=== PATIENT | male | born 1980 | race Caucasian/White ===

== ENCOUNTER → 2019-12-16 15:03 | Outpatient (CLI) | payer BC, SELFPAY ==
--- NOTE | 2019-12-16 15:09 | XR_ITS ---
PROCEDURE: XR THORACIC SPINE 2V CLINICAL INDICATION: Mid-Back Pain COMPARISON: No exams were available for comparison FINDINGS: There is normal alignment. No fracture or dislocation. No lytic or blastic change. IMPRESSION: No acute findings. Dictated by: Olegario Caputo MD 12/16/2019 16:01 Electronically signed by Olegario Caputo MD in [place] 12/16/2019 16:01
== END ==
PROVIDERS: PCP Emergency Medicine; Visit Provider Nurse Practitioner Family
DX: M54.6 Pain in thoracic spine (principal)
CPT/HCPCS: 72070

== ENCOUNTER → 2020-06-13 08:29 | Outpatient (CLI) | payer BC, SELFPAY ==
--- NOTE | 2020-06-13 08:29 | MR_ITS ---
PROCEDURE: MR LUMBAR SPINE WO CON CLINICAL INDICATION: back pain Pt c/o lbp with no known trauma or injury. COMPARISON: No exams were available for comparison TECHNIQUE: Standard multiplanar multiecho sequences are performed without contrast. 3-D MIP and myelographic images are also rendered and reviewed FINDINGS: There is normal alignment. The spinal cord ends at the L1 level. There is a hemangioma at T12 incidentally noted at 1.8 cm. T12-L1: Mild degenerative disc desiccation L1-L2: Mild degenerative disc desiccation L2-L3: Unremarkable. L3-L4: Unremarkable. L4-5: Minimal bulging disc with mild facet and ligamentum hypertrophy with mild bilateral foraminal narrowing. L5-S1: Mild degenerative disc disease. There is a small broad-based central disc protrusion. This is without impingement. IMPRESSION: Mild degenerative changes. Please see above for detail. Small broad-based central disc protrusion at L5-S1 without impingement. No extruded herniated disc or canal stenosis. Dictated by: Olegario Caputo MD 06/14/2020 10:45 Olegario Caputo MD in [place] 06/14/2020 10:45
== END ==
PROVIDERS: PCP Emergency Medicine; Visit Provider Emergency Medicine
DX: M54.5 Low back pain (principal)
CPT/HCPCS: 72148; 76376

== ENCOUNTER → 2020-06-25 08:44 | Outpatient (POV) | payer BC, SELFPAY ==
[2020-06-25 09:03] VITALS: BP 152/96; PULSE 83; RESP 18; O2SAT 98; BMI 30.5
--- NOTE | 2020-06-25 09:33 | HMH.PMCON ---
Assessment and Plan (1) Degenerative joint disease (DJD) of lumbar spine Status: Chronic Category: Medical Code(s): M47.816 - Spondylosis without myelopathy or radiculopathy, lumbar region (2) Neck pain Status: Acute Category: Medical Code(s): M54.2 - Cervicalgia - Assessment and plan all Dx Assessment and Plan for all problems:: Patient I did discuss undergoing injective therapy. He is hesitant, however, is agreeable. We will schedule him for a lumbar epidural steroid injection at L5-S1. He is not on any anticoagulation therapy. Patient says he would like to undergo imaging of his cervical spine. He is having worsening neck pain at this time as well. We will schedule him for a cervical MRI. We will see him back in the clinic after his injection to reassess his symptoms. We will also discuss his MRI results with him at that time. He has been instructed to contact the clinic if he has any concerns before his next appointment the patient and I specifically discussed risk factors for COVID19. These risks include, but are not limited to age greater than 60, heart or lung disease, diabetes, immunosuppression, and travel. We also discussed NSAIDs may worsen COVID19 infection or symptoms. Patient should not use NSAIDs to treat COVID19 signs or symptoms. Patient was also informed that any type of corticosteroid of any form (oral or injection) will decrease the patient's immune system response and may increase the likelihood of COVID19 infection [address] symptoms[address]. Johnston has reviewed this note and agrees with this plan of care. This note was dictated using voice recognition software and make contain errors or omissions. HPI - Data of Consult Patient: new to practice Consult date: 06/25/20 Requesting Physician: Gilma Bustos APRN Primary Care Provider: Jefferson Ruff MD - Consult Narrative Reason for consult: Low back pain, neck pain History of present illness: Mr. Boyle is a 39 year old male who presents today for consultation for low back pain along with neck pain. Patient says that he has had the pain ongoing for a long time, however, says that his pain began worsening over the last 3 to 4 weeks. Patient says he was moving wood magali and developed low back pain. He says that is progressively gotten worse. He is also now having neck pain. He says that any movement of his neck is causing him to have significant pain. Patient does rate his pain a 7 out of 10. He denies any radicular pain. He did undergo an MRI of his lumbar spine. Patient says that it is not SSI related. He says his pain is primarily in his low back area. The pain is constant and does not worsen with any type of movement. CC: Gilma Bustos APRN [facility] History I have reviewed the patient's past medical history: Yes Medical History: Reports:: Anxiety Denies:: Cancer, Diabetes Mellitus Type 1, Diabetes Mellitus Type 2, MRSA *Have you ever received a pneumonia vaccine?: No *Have you received a flu vaccine this season?: No Other Medical History: Reports: Other Other Surgeries: Yes: No Previous Surgery, Other Amputation: No Fractures: No - *Social History Smoking Status: Never smoker Alcohol Intake: never Substance Use Type: denies use *Occupational Status:: other Housing: house Household Members: other *Travel in the last 8 weeks: None - Psychiatric History Pschychiatric History:: Reports:: Anxiety Family Hx:: Unable to obtain Review of Systems - Review of Systems Review of Systems General: No recent weight changes, no fever, no sleep disturbances Respiratory: No cough, no shortness of air, no recurring pulmonary infections Cardiovascular/peripheral vascular: No chest pain, no palpitations, no edema, no shortness of breath Gastrointestinal: No new onset incontinence, normal bowel movements reported Genitourinary: No new onset incontinence Musculoskeletal: Neck pain, low back pain Psychiatric: Normal mood/affect
== END ==
PROVIDERS: PCP Emergency Medicine; Visit Provider Clinical Nurse Specialist Family Health
DX: M47.816 Spondylosis without myelopathy or radiculopathy, lumbar region (principal); M54.2 Cervicalgia
CPT/HCPCS: 99202

== ENCOUNTER 2020-07-03 10:33 | Outpatient (CLI) | payer BC, SELFPAY ==
[2020-07-03 11:23] VITALS: BP 136/84; PULSE 91; RESP 18; TEMP 36.4; O2SAT 97; BMI 30.6
[2020-07-03 11:57] VITALS: BP 138/89; BP 138/98; PULSE 85; RESP 18; O2SAT 98
--- NOTE | 2020-07-03 12:02 | P.PCN_ITS ---
- Procedure Date: 07/03/20 Time: 12:02 Anesthesiologist:: Greg Johnston MD Complications:: None Pre-procedure Diagnosis:: Degenerative disc disease of lumbar spine with lumbar radiculopathy symptoms Post-procedure Diagnosis:: Same Indications for Procedure:: Patient is a pleasant 39-year-old white male who we are treating for low back pain with lumbar radiculopathy symptoms. He has increasing pain in his low back rating down his legs. We will do a lumbar epidural steroid injection today to help with his pain symptoms. He also has some increasing neck pain and cervical radiculopathy symptoms as well. Procedure Details:: Lumbar epidural steroid injection under fluoroscopy Informed consent was obtained and the risk and benefits of the procedure was exp lained to the patient. The patient was taken to the procedure room. The patient was placed prone on the procedure table. The patient was prepped and draped in sterile fashion. C-arm fluoroscopy was used to view the lumbar spine. Skin and subcutaneous tissues were anesthetized using lidocaine. I placed an 18-gauge epidural needle and advanced into the L4-L5 interspace using fluoroscopic guidance and [id number] to air. After confirmation of needle placement in the epidural space with dye I injected 2 mL of lidocaine 1.5% with Depo-Medrol 80 mg. Patient tolerated the procedure well with no complications. Plan and Disposition:: We will follow-up with him in 2 weeks. Will reevaluate symptoms at that time.
[2020-07-03 12:11] VITALS: BP 102/53; PULSE 58; RESP 20; O2SAT 97
--- NOTE | 2020-07-03 15:48 | MR_ITS ---
PROCEDURE: MR CERVICAL SPINE WO CON CLINICAL INDICATION: NECK PAIN Neck pain at the base of the neck, COMPARISON: No exams were available for comparison TECHNIQUE: Standard multiplanar multiecho sequences are performed without contrast. 3-D MIP and myelographic images are also rendered and reviewed FINDINGS: There is a mild degree of motion artifact which somewhat obscures fine detail. There is mild cerebellar tonsillar ectopia of approximately 3 mm. The 4th ventricle has an unremarkable appearance. C2-C3: Unremarkable. C3-C4: Unremarkable. C4-C5: Minimal prominence of the posterior longitudinal ligament with some mild dorsal ridging at the region of the PLL. C5-C6: Minimal bulging disc with slight decrease in the disc space suggesting mild degenerative disc disease. There is mild bilateral foraminal narrowing. C6-C7 and C7-T1 have an unremarkable appearance. IMPRESSION: 1. Minimal cerebellar tonsillar ectopia. 2. Mild degenerative disc disease C5-C6 with minimal bulging disc and mild bilateral foraminal narrowing 3. No extruded herniated disc. 4. Exam somewhat limited secondary to motion artifact Dictated by: Olegario Caputo MD 07/04/2020 11:27 Olegario Caputo MD in [place] 07/04/2020 11:27
== END 2020-07-03 12:12 | disposition home or self-care (01) ==
LOC: SC.PAINP 10:37
PROVIDERS: PCP Emergency Medicine; Visit Provider Anesthesiology
DX: M51.16 Intervertebral disc disorders with radiculopathy, lumbar region (principal); M54.2 Cervicalgia
CPT/HCPCS: 62323; 72141; 76376; J1040; Q9966

== ENCOUNTER → 2020-07-10 13:19 | Outpatient (POV) | payer BC, SELFPAY ==
[2020-07-10 13:38] VITALS: BP 135/80; PULSE 84; RESP 18; TEMP 26.4; O2SAT 100; BMI 30.6
--- NOTE | 2020-07-10 13:43 | HMH.PAINSOAP ---
[facility] Pain Management SOAP Note Subjective:: Patient is a pleasant 39-year-old white male who we are treating for neck pain and low back pain with cervical and lumbar radicular symptoms. He did very well after his last lumbar pleural steroid injection. Pain is decreased 80 to 90%. He is back to work now. He has no longer has much pain in his neck or low back and no pain radiating down his legs. He is very happy and very pleased. He did have some swelling in the lower lumbar area however I believe this was just myofascial swelling. There is no induration there is no fluctuance there does not seem to be any swelling at this time. Patient is doing very well overall. We did review his cervical MRI which shows degenerative changes with some bulging disc at C4-C5, C5-C6. Objective:: Alert and oriented x3 no acute distress. Patient does have an antalgic gait. Motor strength of the upper and lower extremities is 5/5. There is no gross sensory deficit. Assessment:: Degenerative disc disease of the cervical spine with cervical radiculopathy symptoms. Degenerative disease of lumbar spine with lumbar radiculopathy symptoms. Plan:: I am very pleased with his progress. Since his pain is decreased significantly and is back to work we will schedule a follow-up in 1 month. Will reevaluate his symptoms. We will hold off on another injection until it is needed. [facility] History I have reviewed the patient's past medical history: Yes Medical History: Reports:: Anxiety Denies:: Cancer, Diabetes Mellitus Type 1, Diabetes Mellitus Type 2, MRSA, Seizures *Have you ever received a pneumonia vaccine?: No *Have you received a flu vaccine this season?: No Other Medical History: Reports: Other. Denies: Blood Transfusion Reaction Other Surgeries: Yes: No Previous Surgery, Other (foot bone fragments removed) Amputation: No Fractures: No - *Social History Smoking Status: Current every day smoker Tobacco Type: cigarettes # Packs/Day (cigarettes): 1 Alcohol Intake: never Substance Use Type: denies use *Occupational Status:: other Housing: house Household Members: significant other *Travel in the last 8 weeks: None - Psychiatric History Pschychiatric History:: Reports:: Anxiety Family Hx:: Unable to obtain
== END ==
PROVIDERS: PCP Emergency Medicine; Visit Provider Anesthesiology
DX: M50.10 Cervical disc disorder with radiculopathy, unspecified cervical region (principal); M51.16 Intervertebral disc disorders with radiculopathy, lumbar region
CPT/HCPCS: 99212

== ENCOUNTER → 2021-01-28 14:42 | Outpatient (POV) | payer BC, SELFPAY ==
[2021-01-28 15:08] VITALS: BP 110/78; PULSE 77; RESP 18; O2SAT 98; BMI 30.5
--- NOTE | 2021-01-28 15:31 | HMH.PAINSOAP ---
[facility] Pain Management SOAP Note Subjective:: Is a pleasant 40-year-old white male who are treating for neck and low back pain. Patient had epidural injections last year and did well with it until recently. Patient presents today with a new pain between his shoulder blades. Patient does have palpable trigger points in his bilateral trapezius muscles and thoracic paraspinous muscles. Patient states he is been having more thoracic pain than anything at this point. He is also heard a popping sound in this area. He rates his pain a 6 out of 10 today. We discussed options in regards to treatment. Patient is agreeable with trigger point injections. I do believe they would benefit him. ROS General: no recent weight change, no fever, no sleep disturbances Respiratory: no cough, no shortness of air, no recurring pulmonary infections Cardiovascular/Peripheral Vascular: No chest pain, No palpitations, no edema, no shortness of breath. Gastrointestinal: no new onset incontinence, normal bowel movements reported Genitourinary: no new onset incontinence Musculoskeletal: Myofascial pain Psychiatric: normal mood/ affect Neurological: [denies new onset weakness in extremities], [denies new onset balance issues] Objective:: Physical Exam General: Alert and oriented x3, no acute distress, pleasant and cooperative, [on room air] Lungs: Resps E/U, Symmetrical chest expansion, Eyes: PERRL Musculoskeletal: Flexion and extension of thoracic spine somewhat guarded secondary to pain, deep tendon reflexes normal, strength in upper and lower extremities [5/5], slightly antalgic gait noted Neurological: speech clear, relationship counselor equal, no gross sensory deficits Assessment:: Myofascial pain syndrome, thoracic pain Plan:: We will get a MRI of his thoracic spine to help determine any pathology will also set him up for trigger point injections bilateral trapezius muscles along with thoracic paraspinous muscles. He has been instructed to call the office if he has any issues prior to his next appointment. Dr. Johnston has reviewed this note and agrees with this plan of care. This note was dictated using voice recognition software and may contain errors or omissions [facility] History I have reviewed the patient's past medical history: Yes Medical History: Reports:: Anxiety Denies:: Cancer, Diabetes Mellitus Type 1, Diabetes Mellitus Type 2, MRSA, Seizures *Have you ever received a pneumonia vaccine?: Yes *Have you received a flu vaccine this season?: Yes Other Medical History: Reports: Other. Denies: Blood Transfusion Reaction Other Surgeries: Yes: No Previous Surgery, Other (foot bone fragments removed) Amputation: No Fractures: No - *Social History Smoking Status: Current every day smoker Tobacco Type: cigarettes # Packs/Day (cigarettes): 1 Alcohol Intake: never Substance Use Type: denies use *Occupational Status:: other Housing: house Household Members: significant other *Travel in the last 8 weeks: None - Psychiatric History Pschychiatric History:: Reports:: Anxiety Family Hx:: Unable to obtain
== END ==
PROVIDERS: PCP Nurse Practitioner Family; Visit Provider Clinical Nurse Specialist Family Health
DX: M79.18 Myalgia, other site (principal); M54.6 Pain in thoracic spine
CPT/HCPCS: 99212; G0463

== ENCOUNTER → 2021-02-01 14:44 | Outpatient (CLI) | payer BC, SELFPAY ==
--- NOTE | 2021-02-01 14:46 | MR_ITS ---
PROCEDURE: MR THORACIC SPINE WO CON CLINICAL INDICATION: BACK PAIN Severe mid back pain. No injury. Prior x-ray 12/16/19. COMPARISON: CR XR THORACIC SPINE 2V from 12/16/2019 MR MR LUMBAR SPINE WO CON from 06/13/2020 TECHNIQUE: Routine multiplanar multi echo sequences are performed without gadolinium enhancement. FINDINGS: There is normal alignment. No acute fracture or dislocation is evident. There is mild multilevel degenerative changes. There is a small Schmorl's node along the inferior endplate of T6 with mild endplate irregularity of T7 T8 and T9 and small Schmorl's nodes at T11 and T12. No disc herniation or canal stenosis. The thoracic spinal cord has an unremarkable appearance. There is minimal central disc protrusion at T6-T7 slightly eccentric toward the left without impingement. At T5, there is an area of increased T1 and T2 signal anteriorly mostly isointense on the STIR images consistent with a lipoma. This measures 1.8 x 1.6 cm. Along the inferior endplate of T9 posteriorly there is a somewhat speckled appearance hypointense on T1 hyperintense on T2 suggesting a small hemangioma. Nonspecific small T2 hyperintensity along the inferior endplate of T8 on the right at 4 mm. Suspect a small hemangioma along the superior aspect of T12 posteriorly. IMPRESSION: 1. No acute finding. 2. Mild degenerative changes of the thoracic spine as described above. 3. Minimal central disc protrusion at T6-T7 4. Incidental note made of lipomatosis involvement T5 and small hemangiomas of T9 and T12 Dictated by: Olegario Caputo MD 02/02/2021 09:30 Olegario Caputo MD in [place] 02/02/2021 09:30
== END ==
PROVIDERS: PCP Nurse Practitioner Family; Visit Provider Clinical Nurse Specialist Family Health
DX: M54.6 Pain in thoracic spine (principal)
CPT/HCPCS: 72146

== ENCOUNTER 2021-02-05 10:59 | Day surgery (SDC) | payer BC, SELFPAY ==
[2021-02-05 12:06] VITALS: BP 126/85; PULSE 77; RESP 18; TEMP 36.6; O2SAT 97; BMI 30.5
[2021-02-05 14:11] VITALS: BP 109/89; PULSE 67; RESP 18; O2SAT 97
[2021-02-05 14:12] VITALS: BP 109/89; PULSE 67; RESP 18; O2SAT 97
[2021-02-05 14:32] VITALS: BP 132/90; PULSE 63; RESP 18; O2SAT 97
--- NOTE | 2021-02-05 16:14 | P.PCN_ITS ---
- Procedure Date: 02/05/21 Time: 16:14 Anesthesiologist:: Estela Pearson MD Complications:: None Pre-procedure Diagnosis:: Myofascial pain syndrome of neck, mid back Post-procedure Diagnosis:: Same Indications for Procedure:: Patient is a very pleasant 40-year-old white male who presents today for neck and mid back pain. He reports of the pain being mostly localized between his shoulder blades. He also notes a cracking/popping sound with certain activities in his mid back. He reports he is seeing the chiropractor with minimal relief of his pain. He has not trialed physical therapy as of yet for this pain. Of note, he also has low back pain for which he underwent epidural steroid injections last year and reports he had appropriate pain relief until the pain returned recently. Exam revealed flexion and extension of thoracic spine is somewhat guarded secondary to pain, muscle strength in upper and lower extremities is grossly intact, slightly antalgic gait is noted. Plan for today is trigger point injections to the bilateral thoracic paraspinal muscles and bilateral trapezius muscles. I will review his thoracic MRI findings with him today prior to these injections mentioned above, which include the level of degenerative changes of the thoracic spine. No disc herniation or canal stenosis was appreciated. There is a minimal central disc protrusion at T6-7's slightly towards the left without any signs of impingement. He also has multiple benign findings including Schmorl's node at T6, as well as possibly a lipoma at T5, and a small hemangioma along the inferior endplate of T9 posteriorly as well as the superior aspect of T12 posteriorly. Procedure Details:: Trigger point injections x6 to bilateral thoracic paraspinous muscles and bilateral trapezius muscles Informed consent was obtained, the risk and benefits of the procedure were explained to the patient. Patient was taken to the procedure room. The back was prepped using ChloraPrep. Trigger points were palpated and marked. Each of these trigger points were injected with the pelvic and 0.25% 3 mL and Depo- Medrol 10 mg. A total of 6 trigger points were injected 3 on each side with 80 mg of Depo-Medrol. Patient tolerated the procedure well with no complications. Plan and Disposition:: Follow-up in 2 weeks. Will evaluate pain symptoms at that time. We will consider starting physical therapy at that time to further alleviate his pain symptoms and consider potentially repeating lumbar epidural steroid injections for low back pain with lumbar radiculopathy in the near future if pain continues to persist.
== END 2021-02-05 14:33 | disposition home or self-care (01) ==
LOC: SC.PAINP 11:01
PROVIDERS: PCP Nurse Practitioner Family; Visit Provider Anesthesiology Pain Medicine
DX: M79.18 Myalgia, other site (principal); M54.6 Pain in thoracic spine; E78.5 Hyperlipidemia, unspecified; I10 Essential (primary) hypertension; J44.9 Chronic obstructive pulmonary disease, unspecified; M19.90 Unspecified osteoarthritis, unspecified site; F32.9 Major depressive disorder, single episode, unspecified; K21.9 Gastro-esophageal reflux disease without esophagitis; F41.9 Anxiety disorder, unspecified; F31.9 Bipolar disorder, unspecified; Z72.0 Tobacco use
CPT/HCPCS: 20552; J1040

== ENCOUNTER → 2021-03-11 08:26 | Outpatient (POV) | payer BC, SELFPAY ==
[2021-03-11 08:39] VITALS: BP 131/77; PULSE 88; RESP 18; O2SAT 97; BMI 31.8
--- NOTE | 2021-03-11 09:38 | HMH.PAINSOAP ---
[facility] Pain Management SOAP Note Subjective:: Patient is a 40-year-old white male who presents today for follow-up. The patient is being treated for myofascial pain and his upper trapezius and cervical paraspinous muscles. Patient did get trigger point injections by Dr. Pearson at his last visit. He says that he initially had severe anxiety with the injections and almost passed out prior to the injections . He says, however, after his anxiety subsided, he did get about 60% relief with the injections. His pain is a 6 out of 10 today. Patient is complaining of a popping sensation to his mid back along with mid back pain. He says that his pain initiates when he stands up straight. Leaning forward does give him relief. He says that he has muscle tension in his upper and mid back area. Patient is not on a muscle relaxer. We discussed trying muscle relaxer for relief. He says his pain is worse at bedtime. I have advised him to try taking the medication at night. If he is able to tolerate the medication, he can add on the daily doses. He has taken diclofenac in the past which is giving him significant relief of his pain, however, he is out of the medicine. We will refill the medication today. Patient does rate his pain a 6 out of 10 today. Review of Systems General: No recent weight changes, no fever, no sleep disturbances Respiratory: No cough, no shortness of air, no recurring pulmonary infections Cardiovascular/peripheral vascular: No chest pain, no palpitations, no edema, no shortness of breath Gastrointestinal: No new onset incontinence, normal bowel movements reported Genitourinary: No new onset incontinence Musculoskeletal: Neck pain, mid back pain Psychiatric: Normal mood/affect Neurological: [Denies weakness in extremities], [denies balance issues] Objective:: Physical exam General: Alert and oriented x3, no acute distress, pleasant and cooperative, [on room air] Lungs: Respirations even and unlabored, symmetrical chest expansion Eyes: PERRL Musculoskeletal: Flexion and extension of cervical and thoracic spine somewhat guarded secondary to pain, deep tendon reflexes normal, strength in upper and lower extremities [5/5], normal gait noted Neurological: Speech clear, materials associate equal, no gross sensory deficit Assessment:: Myofascial pain cervical and thoracic paraspinous muscles, Plan:: We will order the patient diclofenac 75 mg 1 tablet p.o. twice daily and Flexeril 5 mg 1 tablet p.o. 3 times daily. We will see him back in the clinic in a month for reevaluation of symptoms. Patient has been instructed to contact the clinic with any concerns before the next appointment. Dr. Johnston has reviewed this note and agrees with this plan of care. This note was dictated using voice recognition software and make contain errors or omissions. Risks and benefits of the medication have been explained in detail to the patient. The patient has been advised to consult with his/her primary care provider and pharmacist regarding drug-drug interaction of medications currently prescribed. [facility] History I have reviewed the patient's past medical history: Yes Medical History: Reports:: Anxiety Denies:: Cancer, Diabetes Mellitus Type 1, Diabetes Mellitus Type 2, MRSA, Seizures *Have you ever received a pneumonia vaccine?: Yes *Have you received a flu vaccine this season?: Yes Other Medical History: Reports: Other. Denies: Blood Transfusion Reaction Other Surgeries: Yes: No Previous Surgery, Other (foot bone fragments removed) Amputation: No Fractures: No - *Social History Smoking Status: Current every day smoker Tobacco Type: cigarettes # Packs/Day (cigarettes): 20 Alcohol Intake: never Substance Use Type: denies use *Occupational Status:: employed Housing: house Household Members: significant other *Travel in the last 8 weeks: None - Psychiatric History Pschychiatric History:: Reports:: Anxiety Family Hx:: Unable to obtain
== END ==
PROVIDERS: Visit Provider Clinical Nurse Specialist Family Health
DX: M79.18 Myalgia, other site (principal)
CPT/HCPCS: 99212; G0463

== ENCOUNTER 2022-08-30 10:30 | Outpatient (RCR) | payer BC, SELFPAY | END 2022-08-30 10:35 | disposition home or self-care (01) | LOC: PT 10:30 | PROVIDERS: PCP Nurse Practitioner Family; Visit Provider Pediatrics | DX: M54.6 Pain in thoracic spine (principal); M54.50 Low back pain, unspecified; M47.819 Spondylosis without myelopathy or radiculopathy, site unspecified | CPT/HCPCS: 97010; 97012; 97014; 97110; 97163; 97164; G0283 ==

== ENCOUNTER 2023-11-22 15:06 | Outpatient (CLI) | payer BC, SELFPAY ==
--- NOTE | 2023-11-22 15:12 | MR_ITS ---
FINAL REPORT CLINICAL HISTORY: LUMBAR RADICULOPATHY COMPARISON: None FINDINGS: Multiplanar MR imaging of the lumbar spine was performed without contrast. On the sagittal T2-weighted images, disc degeneration is seen at multiple levels. The vertebral alignment is normal. There is no evidence of fracture. There is a hemangioma of T12. The conus has an unremarkable appearance. L1-2: There is no significant canal stenosis or neural foraminal narrowing. L2-3: There is no significant canal stenosis or neural foraminal narrowing. L3-4: There is no significant canal stenosis or neural foraminal narrowing. L4-5: An annular bulge is present. Left posterolateral annular tear and broad-based disc protrusion. Mild right and moderate left neuroforaminal narrowing. L5-S1: An annular bulge is present. Posterior midline annular tear and small central disc protrusion. Mild bilateral neuroforaminal narrowing. IMPRESSION: Multilevel degenerative disc disease and spondylosis as described. Annular tears and disc protrusions at L4-5 and L5-S1. Reviewed, Interpreted and Dictated by Jong Galvez III, MD Transcribed by Asya Kennedy Authenticated and [facility]
== END 2023-11-22 23:59 ==
PROVIDERS: PCP Nurse Practitioner Family; Visit Provider Student in an Organized Health Care Education/Training Program
DX: M54.50 Low back pain, unspecified (principal); M54.16 Radiculopathy, lumbar region
CPT/HCPCS: 72148; 76376

== ENCOUNTER 2024-10-18 11:40 | Outpatient (CLI) | payer BC, SELFPAY ==
--- NOTE | 2024-10-18 12:08 | ECG_ITS ---
APPROVED REPORT Exam: Resting ECG HR:83 bpm ECG Measurements Heart Rate 83 AXES RI 156 P 58 QRSd 79 QRS 102 QT 345 T 44 QTc 385 Conclusion SINUS RHYTHM RIGHT AXIS DEVIATION [QRS AXIS > 100] ABNORMAL ECG UNCONFIRMED REPORT Electronically signed by : Surya Yusuf MD 10/19/2024 09:38:30
[2024-10-18 12:13] VITALS: BMI 31.1
[2024-10-18 12:45] LABS: Microscopic, Urine URINE MICROSCOPIC (MICROSCOPIC)
[2024-10-18 12:49] LABS: Basophils # 0.1 K/mm3 (0-0.2); Basophils % 0.9 % (0.1-2.0); Eosinophils # 0.1 K/mm3 (0.0-0.4); Eosinophils % 1.1 % (0.1-12.0); Hematocrit 48.7 % (42.0-52.0); Hemoglobin 16.5 g/dL (14.1-18.0); Lymphocytes # 3.8 K/mm3 (0.7-4.5); Lymphocytes % 35.5 % (10-50); Mean Corpuscular HGB Conc 33.9 g/dL (31.8-35.4); Mean Corpuscular Hemoglobin 30.4 pg (27.0-31.2); Mean Corpuscular Volume 89.7 fl (80-94); Mean Platelet Volume 12.1 fl (7.4-10.4); Monocytes # 0.8 K/mm3 (0.1-1.0); Monocytes % 7.4 % (1.7-9.3); Neutrophils # 5.9 K/mm3 (1.8-7.8); Neutrophils % 54.7 % (37.0-80.0); Platelet Count 207 K/mm3 (142-424); Red Blood Count 5.43 M/mm3 (4.60-6.20); Red Cell Distribution Width 13.3 % (11.5-17.5); White Blood Count 10.8 K/mm3 (4.8-10.8)
[2024-10-18 12:51] LABS: Appearance,Urine CLEAR (Clear); Bilirubin,Urine Negative (Negative); Blood, Urine Negative (Negative); Color,Urine YELLOW (Yellow); Glucose,Urine (UA) Negative (Negative); Ketones,Urine Negative (Negative); Leukocyte Esterase,Urine TRACE (Negative); Nitrate,Urine Negative (Negative); Protein,Urine Negative (Negative); Urobilinogen,Urine 0.2 EU/dl (0.2)
[2024-10-18 12:59] LABS: WBC,Urine Occasional #/hpf (0-3)
[2024-10-18 13:00] LABS: Chloride 103 mmol/L (98-107); Potassium 4.2 mmoL/L (3.5-5.1); Sodium 140 mmol/L (136-145)
[2024-10-18 13:03] LABS: Anion Gap 12.2 mEq/L (5-15); Blood Urea Nitrogen 11 mg/dl (9-20); Calcium 9.5 mg/dl (8.4-10.2); Carbon Dioxide 29 mmol/L (22.0-30.0); Creatinine Clearance Estimated 126 mL/min (50-200); Estimated Glomerular Filt Rate 73 ml/min (>60); GFR (African American) 88 ML/MIN (>60); Glucose 101 mg/dl (74-100)
== END 2024-10-18 23:59 | disposition home or self-care (01) ==
PROVIDERS: PCP Nurse Practitioner Family; Visit Provider Surgery
DX: K42.9 Umbilical hernia without obstruction or gangrene (principal)
CPT/HCPCS: 80048; 81001; 85025; 93005

== ENCOUNTER 2024-10-28 06:05 | Day surgery (SDC) | payer BC, SELFPAY ==
[2024-10-28] VITALS (10 sets, daily range): BP systolic 124–159; BP diastolic 79–94; PULSE 78–97; RESP 15–18; TEMP 36.1–38; O2SAT 88–96; BMI 31.1
[2024-10-28] MEDS: LACTATED RINGERS 1000ML 1,000 ML 25 ML IV (06:25)
--- NOTE | 2024-10-28 07:22 | EXP.ANES.CKL ---
[facility] Disclaimer: The information contained in this section may have been updated after the patient was seen, as this information can be updated by other users. Medical History GERD (gastroesophageal reflux disease) Chronic back pain HLD (hyperlipidemia) Diabetes Surgical History History of prior ablation treatment History of foot surgery Family History Other Family history of dementia Family history of diabetes mellitus Family history of kidney disease Social History Smoking Status: Current every day smoker tobacco type: cigarettes packs per day: 1 second hand exposure: Yes alcohol intake: never substance use type: denies use current occupational status: employed and disabled Travel in the last 8 weeks: Inside the [place] household members: significant other and children housing: house current occupation: [employer] current occupational exposures/hazards: No caffeine: Yes Have you lived/traveled outside US in past 30 days?: No Contact w/someone who lives/traveled outside US past 30 days?: No Exposure to someone with infectious disease in past 14 days?: No Do you have a fever (greater than 100.4 F or 38 C)?: No Have you tested positive for COVID-19: No Exposed to someone with COVID-19 in past 14 days?: No Do you have a sore throat?: No Do you have a cough?: No Do you have any weakness?: No Do you have any diarrhea?: No Are you experiencing any unusual bleeding?: No Do you have any muscle aches/pain?: No Do you have any abdominal pain?: No Are you experiencing loss of taste or smell?: No [facility] Anesthesia Checklist Patient Identification Patient Identification: Arm Band, Family and Verbal (Name & ) Structural Data Admitted From: Home Planned Operative Procedure/s: Open UHR Consent for Planned Operative Procedure(s) Verified: Yes Verified Documents: Surgical Consent and History and Physical NPO Status Verified Time NPO: 22:00 Chart Verification Results Verified: BMP and ECG Additional verifications Fingerstick Blood Glucose: 111 Patient : No Anesthesia Reactions: No Hx Blood Transfusions: No Blood Transfusion Reaction: No Cardiovascular Assessment Heart Sounds: S1 & S2 Pulse Rhythm: Irregular Peripheral Edema: No Airway Assessment Mallampati Score:: Class II C-Spine Mobility Assessed: Yes (FROM demonstrated) TMJ Mobility Assessed: Yes Dentition: Edentulous Neurological Assessment Level of Consciousness: Awake, Alert, Appropriate and Follows Commands Hx Seizures: No Numbness or tingling in extremities: No Anesthesia Plan Anesthesia Risk discussed: Yes Anesthesia Plan: Verified ASA Class: III Anesthesia Type: General
[2024-10-28] MEDS: CEFAZOLIN SODIUM 2 GM in 0.9 % SODIUM CHLORIDE 100 ML IV (07:25)
[2024-10-28] MEDS: LIDOCAINE 1% 20ML MDV 20 ML (07:45)
[2024-10-28] MEDS: ROPIVACAINE 0.5% 30ML VIAL 150 MG (07:46)
--- NOTE | 2024-10-28 08:27 | P.OP_ITS ---
Date of procedure: 10/28/24 Pre-op Diagnosis:: Umbilical hernia Post-op Diagnosis:: Same Procedure performed:: Open repair of umbilical hernia with placement of medium sized Bard Ventralex mesh Surgeon:: Jong Corley MD AUTOMOTIVE BRAKE SPECIALIST:: Madyson Linda Anesthesia: GETA Estimated blood loss (mL): 15 Operative findings:: He had a relatively small hernia measuring about 12 mm with chronically incarcerated omentum. Operative note:: Consent was obtained patient was taken to the operating room. He was given preoperative intravenous antibiotics. In the operating room he was placed in a supine position. General anesthesia was induced via endotracheal tube. Abdomen was prepped and draped in the standard surgical fashion. Subumbilical skin incision was made. Dissection was carried down through subcutaneous tissues down to the hernia sac. Using mostly Metzenbaum dissection and some blunt dissection the hernia sac was dissected free from surrounding subcutaneous tissues and dissected free from the umbilical subdermis. Hernia sac was opened. It was rather complex containing adherent chronically incarcerated omentum. The omentum was freed from the peritoneum of the hernia sac using electrocautery. It was ultimately able to be reduced. The extraneous peritoneum of the hernia sac was then excised down to near the fascial edges and sent off a specimen labeled hernia sac. Hemostasis was achieved with electroca utery. Overall size of the defect measured about 12 to 14 mm. A medium sized Bard Ventralex mesh was brought onto the field. It was inserted through the defect into the peritoneal cavity to repair the defect with good posterior fascial overlap. The tails of the mesh were sutured to the fascial edges with several interrupted 2-0 Prolene sutures. The tails were then cut flush with the fascia. Fascia was closed over the mesh with a single 0 Ethibond suture. There was good hemostasis. Local anesthetic was infiltrated. Umbilical subdermis was then reapproximated to the underlying fascia with a couple of interrupted 2-0 Vicryl sutures. Subdermal tissues were then closed with interrupted 2-0 Vicryl. Skin was closed with 4-0 Monocryl in a running subcuticular fashion. Dermabond and dressing was applied. . Condition: stable Disposition: PACU Complications:: None immediately apparent
--- NOTE | 2024-10-28 08:42 | P.PNANES_ITS ---
[facility] Anesthesia Record Part I Anesthesia Record I Intake, IV Amount: 800 Hydration: Adequate Estimated blood loss (mL): 15 Urine output (mL): 0 Blood Products used (#): none Blood Pressure: 149/94 SaO2: 90 Pulse Rate: 89 Airway Patency: Patent Respiratory Rate: 18 Temperature: 96.9 F Patient is:: Awake, Drowsy, Nasal O2 (5L/min) and Stable Stable to PACU at:: 08:40
[2024-10-28 08:55] LABS: POC Glucose,Bedside 128 (70-110)
[2024-10-28] MEDS: ALBUTEROL 0.083% 2.5 MG/3 ML NEB IH (09:45)
--- NOTE | 2024-10-28 10:02 | EXP.ANES.II ---
[facility] Anesthesia Record Part II Anesthesia Record Part II Discharge Time: 08:55 Destination: Surgical Day Care (OP Surgery) PACU nurse assessment reviewed?: Yes Patient Condition:: Good Anesthesia Complications:: None Swallowing reflex intact?: Yes Airway Patency: Patent Cyanosis?: No Blood Pressure: 134/92 SaO2: 96 Respiratory Rate: 18 Pulse Rate: 79 Temperature: 96.9 F Mental Status: Alert & Oriented Pain level:: 0 Nausea and/or vomitting:: None Intake, IV Amount: 800 Hydration: Adequate
== END 2024-10-28 10:00 | disposition home or self-care (01) ==
PROVIDERS: PCP Nurse Practitioner Family; Visit Provider Surgery
PROC: (CPT 49591; principal; 2024-10-28 07:30)
DX: K42.0 Umbilical hernia with obstruction, without gangrene (principal); E11.9 Type 2 diabetes mellitus without complications; Z79.84 Long term (current) use of oral hypoglycemic drugs
CPT/HCPCS: 49591; 82962; 96374; J3490; C1781; J0690; J1100; J1885; J2250; J2405; J3010; J7120; J7613

== ENCOUNTER 2025-05-19 13:45 | Emergency (ER) | payer BC, SELFPAY ==
--- OUTSIDE RECORDS SUMMARY | 2025-03-27 10:00 | XMS_ITS | Encounter Summary ---
Author Organization [facility] Address [address] [place] [address] Care Team Providers Care Yarn Skeins Examiner Name Role Phone Nakia Ramirez APRN Primary Care Provider [phone] Reason for Visit * Reason Comments Follow-up Encounter Details Date Type Department Care Team (Late st Contact Info) Description 03/27/2025 10:00 AM EDT Office Visit [facility] at [facility] [address] [place] [id number] Jefferson Mccarthy, DO [address] [place] [address] Midline thoracic back pain, unspecified chronicity; Myofascial pain; Lumbar back pain; Facet arthropathy; Vertebrogenic pain; Lumbar radiculopathy Social History Tobacco Use Types Packs/Day Years Used Date Smoking Tobacco: Every Day Cigarettes 1 23.7 Started: 09/11/2001 Smokeless Tobacco: Never Tobacco Cessation:Ready to Q uit: Not Asked; Counseling Given: Not Answered Alcohol Use Standard Drinks/Week Comments Never 0 (1 standard drink = 0.6 oz pur e alcohol) PHQ-2 Answer Date Recorded Patient Health Questionnaire-2 Score 2 03/27/2025 PHQ-2A Answer Date Recorded Patient Health Questionnaire-2 Score 0 04/12/2023 Sex and Gender Information Value Date Recorded Sex Assigned at Not on file Legal Sex Male 7:40 PM EDT Gender Identity Not on file Sexual Orientation Not on file documented as of this encounter Last Filed Vital Signs Vital Sign Reading Time Taken Comments Blood Pressure 108/79 03/27/2025 10:07 AM EDT Pulse 82 03/27/2025 10:07 AM EDT Temperature - - Respiratory Rate - - Oxygen Saturation 96% 03/27/2025 10:07 AM EDT Inhaled Oxygen Concentration - - Weight 104 kg (230 lb) 03/27/2025 10:07 AM EDT Height 182.9 cm (6') 03/27/2025 10:07 AM EDT Body Mass Index 31.19 03/27/2025 10:07 AM EDT documented in this encounter Functional Status * Over the past 2 weeks, how often have you been bothered by any of the following problems? Question Answer Date of Assessment Author Little interest or pleasure in doing things Several days 03/27/2025 10:11 AM EDT Aryan Sanchez RN Feeling down, depressed, or hopeless Several days 03/27/2025 10:11 AM EDT Sara Sanchez RN Patient Health Questionnaire-2 Score 2 03/27/2025 10:11 AM EDT Praveen Sanchez RN * Calculated C-SSRS Risk Score (Lifetime/Recent) Answer Date of Assessment Author No Risk Indicated 03/27/2025 10:11 AM EDT Sara Yu RN * If you checked off any problems on this questionnaire so far, Question Answer Date of Assessment Author How difficult have these problems made it for you to do your work, take care of things at home, or get along with other people? Somewhat difficult 03/27/2025 10:11 AM EDT Sara Sanchez RN * Question Answer Date of Assessment Author 1. Wish to be (Past 1 Month) No 03/27/2025 10:11 AM Sara Olivas RN 2. Non-Specific Active Suici mariel Thoughts (Past 1 Month) No 03/27/2025 10:11 AM EDT Kira Sanchez RN 6. Suicidal Behavior (Lifetime) No 10:11 AM EDT Sara Sanchez RN documented as of this encounter Miscellaneous Notes * Progress Notes - Jefferson Mccarthy DO - 03/27/2025 10:00 AM EDT [facility] Up Visit Chief Complaint: back pain Background History: 44yo male with hx of bipolar depression, anxiety, prediabetes who is followed for mid and low back pain. Notes 2 year history with insidious onset, re-exacerbated 06/02 when son sat on his shoulder for thrdanisr parade. Of note prior HIMA with three months of relief and prior TPIs without significant relief and patient with difficulty with amount of needles and had to stop procedure. Previously seen in clinic 01/10/23 at which time felt pain secondary to facet arthropathy and myofascial pain, patient was s/p RFA to thoracic spine with improvement in facet pain but worsening muscular pain, patient instructed to continue with PT, continued on cyclobenzaprine and started diclofenac and duloxetine, and continued on OMT. Patient was notably having worsening LLE numbness and ordered MRI of T and L spine for further evaluation. No improvement with OMT and IVP interventions, [facility] surgery as well as Dr. Beard (did recommend potential SCS evaluation with IVP) noted no surgical intervention, continued on cyclobenzaprine and duloxetine as well as diclofenac. Discussed following back with IVP for possible Sprint to multifidus that they had discussed. Interval History: Patient returns today for followup. Notes overall back pain is stable. Notes primarily in low back at this time, mid back is largely okay. Notes the low back is bilateral midline, not radiating down BLE. Notes no new numbness, tingling, weakness. Denies bowel or bladder changes. Notes the med change at last visit helped some and did not make him drowsy like prior medications. Not pursuing IVP tx at this time due to financial concerns. Notes trying to walk and move more. Also got a tilt table which helps for short term. No new concerns. Had labwork and denies issues with kidney function. No other concerns. Details of past medical history, surgical history, family history, and social history reviewed in the medical record. Allergies: No Known Allergies Medications: Current Outpatient Medications: albuterol 108 (90 Base) MCG/ACT inhaler, TAKE 2 PUFFS BY MOUTH EVERY 4 TO 6 HOURS NEEDED, Disp: , Rfl: ALPRAZolam (Xanax) 1 MG tablet, Take 1 tab 1 hour prior to procedure, if no change in anxiety in 30minutes take 2nd tab. Bring 3rd tab to office with non emergency services ambulance driver., Disp: 3 tablet, Rfl: 0 ARIPiprazole (Abilify) 10 MG tablet, Take 1 tablet (10 mg) by mouth 1 (one) time each day., Disp: ,Rfl: celecoxib (CeleBREX) 200 MG capsule, Take 1 capsule by mouth 2 times a day., Disp: 60 capsule, Rfl:5 cholecalciferol (Vitamin D-3) 50 MCG (2000 UT) capsule, , Disp: , Rfl: [facility] Nasal Notus 0.05 % nasal spray, SPRAY 2 SPRAY BY INTRANASAL ROUTE 2 TIMES EVERY DAY IN EACH NOSTRIL IN THE MORNING AND EVENING, Disp: , Rfl: cyclobenzaprine (Flexeril) 10 MG tablet, Take 1 tablet (10 mg) by mouth 3 (three) times a day if needed for muscle spasms., Disp: 90 tablet, Rfl: 2 DULoxetine (Cymbalta) [address] capsule, Take 1 capsule (60 mg) by mouth 1 (one) time each day. Do not crush or chew., Disp: 90 capsule, Rfl: 1 ezetimibe (Zetia) 10 MG tablet, Take 1 tablet (10 mg) by mouth 1 (one) time each day., Disp: , Rfl: ferrous sulfate 325 (65 Fe) MG tablet, Take 1 tablet (325 mg) by mouth 1 (one) time each day., Disp: , Rfl: fluticasone (Flonase) 50 MCG/ACT nasal spray, USE 1 TO 2 SPRAY(S) IN EACH NOSTRIL ONCE DAILY NEEDED, Disp: , Rfl: loratadine (Claritin) 10 MG tablet, Take 1 tablet (10 mg) by mouth 1 (one) time each day., Disp: , Rfl: metFORMIN XR (Glucophage-XR) 500 MG 24 hr tablet, , Disp: , Rfl: omeprazole (PriLOSEC) [address] capsule, TAKE AT ONE CAPSULE DAILY WITH 8 OZ. WATER, 20 MIN PRIOR TOEATING, Disp: , Rfl: ondansetron ODT (Zofran-ODT) 4 MG disintegrating tablet, TAKE 1 THREE TIMES A DAY NEEDED FOR NAUSEA/VOMITING, Disp: , Rfl: propranolol (Inderal) 40 MG tablet, Take 1 tablet (40 mg) by mouth 2 (two) times a day., Disp: , Rfl: rosuvastatin (Crestor) 10 MG tablet, Take 1 tablet (10 mg) by mouth 1 (one) time each day., Disp: ,Rfl: sertraline (Zoloft) 50 MG tablet, Take 1 tablet (50 mg) by mouth 1 (one) time each day., Disp: , Rfl: topiramate 50 MG tablet, TAKE 1 TABLET BY MOUTH EVERYDAY AT BEDTIME, Disp: , Rfl: ROS: 14 point ROS negative except for above. Physical Examination: Visit Vitals BP 108/79 Pulse 82 Ht 1.829 m (6') Wt 104 kg (230 lb) SpO2 96% BMI 31.19 kg/m?? Smoking Status Every Day BSA 2.3 m?? General Apperance: Awake. Well groomed. No facial deformities. Oriented X 3. Normal mood. Ear, Nose, Mouth and Throat: Normocephalic. Moist Oral Mucosa. No pallor. Eyes: Normal conjunctivae. No icterus. Respiratory: No use of accessory muscles during breathing. Cardiovascular: No edema bilaterally. Gastrointestinal: Soft, non-tender, non-distended. Musculoskeletal: There is no obvious kyphosis or scoliosis. There is no clubbing. No contractures. Skin: There is no evidence of rash. Neurological: Grossly normal motor exam. No aphasia. TTP bilateral lumbar paraspinals with TPIs bilaterally about QL Noted pain with facet loading and twisting No significant pain with palpation of bilateral SI joint HF KE DF EHL PF RLE: 5/5 5/5 5/5 5/5 5/5 LLE: 5/5 5/5 5/5 5/5 5/5 SILT L2-S1 DP/TP pulse 2+ symmetric B/L Negative ankle clonus B/L Reflexes 2+ patella and achilles Negative Slump DATA: Labs reviewed with Cr 1.21 and GFR 75 Assessment: Gokul Boyle is a 44 y.o. male with Diagnoses and all orders for this visit: Lumbar back pain, chronic worsening(Primary) Midline thoracic back pain, unspecified chronicity Myofascial pain Facet arthropathy Vertebrogenic pain - celebrex 200mg PO BID PRN Plan: Patient with history and examination remaining consistent with thoracic/lumbar vertebrogenic/spondylotic pain with some facetogenic component with overlying myofascial pain. Had thoracic RFAs that helped some with facetogenic pain but myofascial pain worse. Has had SI joint and TPIs with IVP and noimprovement. No improvement with OMT, PT. increase celebrex to 200mg BID PRN, kidney labs reviewed and stable, has previously failed diclofenac and meloxicam. Continue flexeril PRN, duloxetine 60mg daily for chronic pain complaints. Further counseled on importance of HEP. No radicular symptoms at this time. Has seen ortho spine as well as neurosurgery with Dr. Beard and note no surgical intervention, recommended potential evaluation for spinal cord stimulator. Now s/p RFA of L spine with some improvement in constant pain. IVP has discussed peripheral nerve stimulator to bilateral lumbar medial branch pending insurance approval, patient hesitant with cost. Follow up in 4 months. 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 mention of myelopathy Vertebrogenic pain Unspecified backache Lumbar radiculopathy Thoracic or lumbosacral neuritis or radiculitis, unspecified documented in this encounter Additional Health Concerns Assessment Noted Time A fall risk assessment has been complete d for the patient 03/27/2025 10:10 AM EDT A Body Mass Index follow-up plan has been documented for the patient 03/27/2025 11:43 AM EDT documented as of this encounter Care Teams Yarn Skeins Examiner Relationship Specialty Start Date End Date Nakia Ramirez APRN [address] [place] [address] PCP - General 07/13/22 documented as of this encounter
[2025-05-19] VITALS (9 sets, daily range): BP systolic 110–135; BP diastolic 74–84; PULSE 63–90; RESP 10–20; TEMP 37–37.1; O2SAT 91–99; BMI 31.8
--- NOTE | 2025-05-19 | ECG_ITS ---
APPROVED REPORT Exam: Resting ECG HR:80 bpm ECG Measurements Heart Rate 80 AXES ME 156 P 62 QRSd 84 QRS 91 QT 345 T 37 QTc 381 Conclusion SINUS RHYTHM BORDERLINE RIGHT AXIS DEVIATION [QRS AXIS > 90] BORDERLINE ECG UNCONFIRMED REPORT Electronically signed by : MARISELA WEBER, 05/19/2025 23:02:59
--- NOTE | 2025-05-19 13:48 | XR_ITS ---
FINAL REPORT CLINICAL HISTORY: SOB and CP FINDINGS: A single PA view of the chest was obtained. There is no prior exam for comparison. The cardiac and mediastinal silhouettes are within normal limits. The lungs are clear. There is no effusion or pneumothorax. IMPRESSION: No radiographic evidence of acute cardiac or pulmonary disease on this single view of the chest. Reviewed, Interpreted and Dictated by Valerie Jesus MD Transcribed by Gretel Galarza Authenticated and [facility]
--- OUTSIDE RECORDS SUMMARY | 2025-05-19 13:51 | XMS_ITS | Clinical Summary ---
Author Organization [facility] Address [address] [place] [phone] Phone Care Team Providers Care Toppiece Cutter Name Role Phone Es Leger DO Primary Care Physician [phone] Conditions or Problems Problem Name Problem Code Onset Date Status Entry Date Provider Comment Standard Description Annotate Body mass index (BMI) 31.0-31.9; adult Z68.31 (ICD-10-CM ) 10/05 Active 10/05 Pardeep Kurtz MD Body mass index [BMI] 31.0-31.9, adult Body mass index (BMI) 31.0-31.9; adult Z68.31 (ICD-10-CM ) 10/05 Correction 10/05 Pardeep Kurtz MD Body mass index [BMI] 31.0-31.9, adult Body mass index (BMI) 31.0-31.9; adult Z68.31 (ICD-10-CM ) 10/05 Removed 10/05 Pardeep Kurtz MD Body mass index [BMI] 31.0-31.9, adult Body mass index (BMI) 30.0-30.9; adult Z68.30 (ICD-10-CM ) 04/13 Correction 04/13 Pardeep Kurtz MD Body mass index [BMI] 30.0-30.9, adult Body mass index (BMI) 30.0-30.9; adult Z68.30 (ICD-10-CM ) 04/13 Removed 04/13 Pardeep Kurtz MD Body mass index [BMI] 30.0-30.9, adult Body mass index (BMI) 29.0-29.9; adult Z68.29 (ICD-10-CM ) 12/08 Correction 12/08 Pardeep Kurtz MD Body mass index [BMI] 29.0-29.9, adult Counseling for nutrition Z71.3 (ICD-10-CM ) 12/08 Inactive 12/08 Pardeep Kurtz MD Dietary counseling and surveillance Body mass index (BMI) 29.0-29.9; adult Z68.29 (ICD-10-CM ) 12/08 Removed 12/08 Pardeep Kurtz MD Body mass index [BMI] 29.0-29.9, adult Body mass index (BMI) 30.0-30.9; adult Z68.30 (ICD-10-CM ) Correction Pardeep Kurtz MD Body mass index [BMI] 30.0-30.9, adult Depression / anxiety 987053094 (SNOMED CT) 12/08 Active 12/08 Pardeep Kurtz MD Mixed anxiety and depressive disorder Counseling for nutrition Z71.3 (ICD-10-CM ) Inactive Pardeep Kurtz MD Dietary counseling and surveillance Body mass index (BMI) 30.0-30.9; adult Z68.30 (ICD-10-CM ) Removed Pardeep Kurtz MD Body mass index [BMI] 30.0-30.9, adult Body mass index (BMI) 29.0-29.9; adult Z68.29 (ICD-10-CM ) 06/10 Correction 06/10 Pardeep Kurtz MD Body mass index [BMI] 29.0-29.9, adult Body mass index (BMI) 29.0-29.9; adult Z68.29 (ICD-10-CM ) 06/10 Removed 06/10 Pardeep Kurtz MD Body mass index [BMI] 29.0-29.9, adult Body mass index (BMI) 29.0-29.9; adult Z68.29 (ICD-10-CM ) 04/25 Correction 04/25 Pardeep Kurtz MD Body mass index [BMI] 29.0-29.9, adult Smoking cessation counseling [id number] (SNOMED CT) 04/25 Inactive 04/25 Nakia Ramirez AGRICULTURE RESEARCH DIRECTOR Procedure carried out on subject Wound check [id number] (SNOMED CT) 04/25 Inactive 04/25 Nakia Ramirez AGRICULTURE RESEARCH DIRECTOR Wound care Body mass index (BMI) 29.0-29.9; adult Z68.29 (ICD-10-CM ) 04/25 Removed 04/25 Nakia Ramirez AGRICULTURE RESEARCH DIRECTOR Body mass index [BMI] 29.0-29.9, adult Screening for hypercholes terolemia 310938100 (SNOMED CT) 04/25 Inactive 04/25 Nakia Ramirez AGRICULTURE RESEARCH DIRECTOR Cholesterol screening Screening for hypothyroid ism 988044917 (SNOMED CT) 04/25 Inactive 04/25 Nakia Ramirez AGRICULTURE RESEARCH DIRECTOR Thyroid disorder screening Screening for diabetes mellitus 584604021 (SNOMED CT) 04/25 Inactive 04/25 Nakia Ramirez AGRICULTURE RESEARCH DIRECTOR Diabetes mellitus screening Depression, acute 42932808 (SNOMED CT) 04/25 Inactive 04/25 Nakia Ramirez AGRICULTURE RESEARCH DIRECTOR Depressive disorder Establish care or get acquainted visit [id number] (SNOMED CT) 04/25 Inactive 04/25 Nakia Ramirez AGRICULTURE RESEARCH DIRECTOR Procedure carried out on subject Medications Medication Instructions Start Date Stop Date Generic Name NDC Provider PROPRANOLOL HCL 10 MG TABS TAKE 1 TABLET BY MOUTH 2 TIMES A DAY PROPRANOLOL HCL [id number] Pardeep Kurtz MD HYDROXYZINE HCL 25 MG TABS Take 1-2 tablets by mouth once a day as needed for anxiety HYDROXYZINE HCL 93992088402 Pardeep Kurtz MD FISH OIL 1000 MG CAPS TAKE 1 CAPSULE BY MOUTH ONCE A DAY OMEGA-3 FATTY ACIDS 52539571404 Pardeep Kurtz MD HYDROXYZINE HCL 25 MG TABS Take 1-2 tablets by mouth once a day as needed for anxiety HYDROXYZINE HCL 72783878754 Pardeep Kurtz MD BUSPIRONE HCL 10 MG TABS TAKE 1 tablet BY MOUTH TWICE A DAY BUSPIRONE HCL 93190349838 Pardeep Kurtz MD BUSPIRONE HCL 10 MG TABS TAKE 1 tablet BY MOUTH TWICE A DAY BUSPIRONE HCL 96488127872 Pardeep Kurtz MD WELLBUTRIN XL 300 MG [id number] TAKE 1 TABLET BY MOUTH ONCE A DAY BUPROPION HCL 38986714698 Pardeep Kurtz MD BUPROPION HCL ER (XL) 150 MG [id number] TAKE 1 TABLET BY MOUTH ONCE A DAY BUPROPION HCL 97893925578 Nakia James MENDEZ FISH OIL 1000 MG CAPS TAKE 1 CAPSULE BY MOUTH ONCE A DAY OMEGA-3 FATTY ACIDS 69731540395 Nakia Ramirez APRN BUPROPION HCL ER (XL) 150 MG [id number] TAKE 1 TABLET BY MOUTH ONCE A DAY BUPROPION HCL 75265596767 Nakia Elr AGRICULTURE RESEARCH DIRECTOR CITALOPRAM HYDROBROMIDE 10 MG TABS TAKE 1 TABLET BY MOUTH 1 TIME A DAY CITALOPRAM HYDROBROMIDE [id number] Nakia Ramirez AGRICULTURE RESEARCH DIRECTOR CITALOPRAM HYDROBROMIDE 10 MG TABS TAKE 1 TABLET BY MOUTH 1 TIME A DAY CITALOPRAM HYDROBROMIDE [id number] Nakia Ramirez AGRICULTURE RESEARCH DIRECTOR MUPIROCIN 2 % OINT APPLY TO AFFECTED AREA 2 TIMES DAILY MUPIROCIN 39498046245 Nakia James LASTN Medications Administered No information available. Allergies, Adverse Reactions, Alerts Observed no known allergies at Results Date Name Value Unit Range Flag Description Lab Report: LIPID PANEL WITH REFLEX TO DIRECT LDL, LIPID PANEL WITH REFL ... HGBA1C 5.7 % OF TOTAL HGB % <5.7 H Hemoglobin A1c/Hemoglobin, total in Blood - % VIT D 25-OH 32 ng/mL 30-100 N 25-Hydrox ycalciferol [Mass/volume] in Serum or Plasma TSH 2.01 u[iU]/mL 0.40-4.50 N Thyrotropi n [Units/volume] in Serum or Plasma BASO % MANU 0.7 % N basophils as percent of blood leukocytes, manual count EOS % MANU 1.3 % N eosinophil s as percent of blood leukocytes, manual count MONOCYTE % 7.6 % N Monocytes/ 100 leukocytes in Blood by Automated count LYMPH% P BLD 33.8 % N lymphocy loretta as percent of blood leukocytes PMN % 56.6 % N Neutrophils/1 00 leukocytes in Blood by Automated count ABS BASOS 60 {Cells}/u L 0-200 N Basophils [#/volume] in Blood ABS EOS 111 {Cells}/u L 15-500 N Eosinophils [#/volume] in Blood ABS MONOS 646 {Cells}/u L 200-950 N Monocytes [#/volume] in Blood ABSLYMPHCT 2873 {Cells}/u L 850-3900 N Lymphocytes [#/volume] in Blood ABS NEUTROPH 4811 CELLS/UL 10*3/uL 3180-2807 N Neutrophils [#/volume] in Blood MPV 11.7 fL 7.5-12.5 N Platelet munira n volume [Entitic volume] in Blood by Katerina PLATELETK/UL 198 THOUSAND/UL 10*3/uL 140-400 N platelet count RDW 14.0 % 11.0-15.0 N Erythrocyte distribution width [Ratio] by Automated count OL-MCHC 34.4 g/dL 32.0-36.0 N mean corpus cular hemoglobin concentration, rbc MCH 31.2 pg 27.0-33.0 N MCH [Entiti c mass] by Automated count MCV 90.5 fL 80.0-100.0 N MCV [Entit ic volume] by Automated count HCT 48.5 % 38.5-50.0 N Hematocrit [Volume Fraction] of Blood by Automated count HGB 16.7 g/dL 13.2-17.1 N Hemoglobin [Mass/volume] in Blood RBC M/UL 5.36 MILLION/UL 10*6/uL 4.20-5.80 N re d blood count WBC CT BLOOD 8.5 10*3/uL 3.8-10.8 N leukocy te count, blood SGPT (ALT) 24 U/L 9-46 N Alanine aminotransferase [Enzymatic activity/volume] in Serum or Plasma SGOT (AST) 18 U/L 10-40 N Aspartate aminotransferase [Enzymatic activity/volume] in Serum or Plasma ALK PHOS 74 U/L 40-115 N Alkaline marcy sphatase [Enzymatic activity/volume] in Blood BILI TOTAL 0.4 mg/dL 0.2-1.2 N Bilirubin. total [Mass/volume] in Serum or Plasma A/G RATIO 1.9 (calc) 1.0-2.5 N Albumin/ Globulin [Mass Ratio] in Serum or Plasma GLOBULIN TOT 2.5 G/DL (CALC) g/dL 1.9-3.7 N Globulin [Mass/volume] in Serum ALBUMIN EOP 4.8 g/dL 3.6-5.1 N Albumin [ Mass/volume] in Serum or Plasma by Electrophoresis PROTEIN, TOT 7.3 g/dL 6.1-8.1 N Protein [Mass/volume] in Serum or Plasma CALCIUM 9.8 mg/dL 8.6-10.3 N Calcium [Moles/volume] in Serum or Plasma CO2 27 mmol/L 20-32 N Carbon dioxid e, total [Moles/volume] in Venous blood CHLORIDE BLD 104 mmol/L 98-110 N chloride , blood POTASSIUM 4.3 mmol/L 3.5-5.3 N Potassium [Moles/volume] in Serum or Plasma SODIUM 141 mmol/L 135-146 N Sodium [Moles /volume] in Serum or Plasma BUN/CREAT NOT APPLICABLE (calc) 6-22 Urea nitrogen/Creatinine [Mass Ratio] in Serum or Plasma EGFR IF AFA 94 mL/min/1. 73m2 >OR = 60 N Glomerular filtratio n rate/1.73 sq M.predicted among blacks [Volume Rate/Area] in Serum, Plasma or Blood by Creatinine-based formula (MDRD) EGFR 81 mL/min/1. 73m2 >OR = 60 N Glomerular filtratio n rate/1.73 sq M.predicted [Volume Rate/Area] in Serum, Plasma or Blood by Creatinine-based formula (MDRD) CREATININE 1.13 mg/dL 0.60-1.35 N Creatini ne [Mass/volume] in Serum or Plasma BUN 12 mg/dL 7-25 N Urea nitrogen [Mass/volume] in Serum or Plasma GLUCOSE SER 90 mg/dL 65-99 N Glucose [ Mass/volume] in Serum or Plasma NON-HDL CHOL 145 MG/DL (CALC) mg/dL <130 H cholesterol, non -HDL, total CHOL/HDL % 5.8 (calc) <5.0 H cholest sallie/HDL ratio, serum, percent LDL 107 MG/DL (CALC) mg/dL H Cholesterol in L DL [Mass/volume] in Serum or Plasma - mg/dL TRIGLYC TOT 268 mg/dL <150 H Triglycer ivett [Mass/volume] in Serum or Plasma - mg/dL HDL 30 mg/dL >40 L Cholesterol i n HDL [Mass/volume] in Serum or Plasma - mg/dL CHOLESTEROL 175 mg/dL <200 N Cholester ol [Mass/volume] in Serum or Plasma - mg/dL Plan of Care Type Date Detail Referral [facility], [address] [place] [address], [address] Pending order T1 CBC with diff Pending order T1 CMP Pending order T1 HGBA1c Pending order T1 Lipid Panel Pending order T2 Vitamin D 25 Hydroxy Pending order T1 TSH reflex to free T4 Patient education Patient Educat ion Given Procedures Code Procedure Name Date Entry Date [facility]-[id number] Medication Reconciliation [id number] Giving encouragement to exercise CPT-3075F Most recent systolic blood pressure 130-139 mm Hg CPT-3079F Most recent diastoli c blood pressure 80-89 mm Hg CPT-1159F Medication list docu mented in medical record CPT-1160F Review of all medica tions by a prescribing practitioner [id number] Medication Reconciliation CPT-3074F Most recent systolic blood pressure <130 mm Hg CPT-3079F Most recent diastoli c blood pressure 80-89 mm Hg [id number] Giving encouragement to exercise SCT-[id number] Medication Reconciliation CPT-3074F Most recent systolic blood pressure <130 mm Hg CPT-3079F Most recent diastoli c blood pressure 80-89 mm Hg [id number] Medication Reconciliation CPT-3074F Most recent systolic blood pressure <130 mm Hg CPT-3079F Most recent diastoli c blood pressure 80-89 mm Hg CPT-3074F Most recent systolic blood pressure <130 mm Hg CPT-3078F Most recent diastoli c blood pressure <80 mm Hg SCT-[id number] Medication Reconciliation CPT-3074F Most recent systolic blood pressure <130 mm Hg CPT-3078F Most recent diastoli c blood pressure <80 mm Hg SCT-[id number] Medication Reconciliation SCT-[id number] Giving encouragement to exercise SCT-[id number] Dietary management education/guidance/counseling [facility] 6399 T1 CBC with diff [facility] 29977 T1 CMP [facility] 496 T1 HGBA1c [facility] 11195 T1 Lipid Panel [facility] 77381 T2 Vitamin D 25 Hydroxy 2018 [facility] 54426 T1 TSH reflex to free T4 201 05/19/15 [facility] 04/25 Vital Signs Date Name Value Unit Description BMI (Body Mass Index) 31.37 kg/m2 Bod y Mass Index (Ratio) Body Temperature 97.5 [degF] temperat ure E&M Body Temperature 36.39 Jimena temperat ure in centigrade E&M BP Diastolic 88 mm[Hg] blood pressu re, diastolic BP Systolic 132 mm[Hg] blood pressur e, systolic BSA (Body Surface Area) 2.31 b gerber surface area Heart Rate 78 /min pulse rate Height 72 [in_us] height E&M Height 182.88 cm height in cent imeters E&M Weight Measured 230.5 [lb_av] weight E& M Weight Measured 230.5 [lb_av] weight E& M Weight Measured 104.77 kg weight in kilograms E&M Immunizations No information available. Advance Directives No information available.
--- OUTSIDE RECORDS SUMMARY | 2025-05-19 13:52 | XMS_ITS | Clinical Summary ---
Author Organization [facility] Address [address] [place] [address] Care Team Providers Care Chalker Soles Name Role Phone Nakia Ramirez APRN Primary Care Provider [phone] Allergies No known active allergies Medications loratadine (Claritin) 10 MG tablet Take 1 tablet (10 mg) by mouth 1 (one) time each day. 2 Active omeprazole (PriLOSEC) [address] capsule TAKE AT ONE CAPSULE DAILY WITH 8 OZ. WATER, 20 MIN PRIOR TO EATING 2 Active sertraline (Zoloft) 50 MG tablet Take 1 tablet (50 mg) by mouth 1 (one) time each day. 2 Active topiramate 50 MG tablet TAKE 1 TABLET BY MOUTH EVERYDAY AT BEDTIME 2 Active ondansetron ODT (Zofran-ODT) 4 MG disintegrating tablet TAKE 1 THREE TIMES A DAY NEEDED FOR NAUSEA/VOMITIN G 2 Active ARIPiprazole (Abilify) 10 MG tablet Take 1 tablet (10 mg) by mouth 1 (one) time each day. 2 Active propranolol (Inderal) 40 MG tablet Take 1 tablet (40 mg) by mouth 2 (two) times a day. 3 Active rosuvastatin (Crestor) 10 MG tablet Take 1 tablet (10 mg) by mouth 1 (one) time each day. 2 Active fluticasone (Flonase) 50 MCG/ACT nasal spray USE 1 TO 2 SPRAY(S) IN EACH NOSTRIL ONCE DAILY NEEDED 3 Active cholecalciferol (Vitamin D-3) 50 MCG (2000 UT) capsule 3 Active albuterol 108 (90 Base) MCG/ACT inhaler TAKE 2 PUFFS BY MOUTH EVERY 4 TO 6 HOURS NEEDED 3 Active ezetimibe (Zetia) 10 MG tablet Take 1 tablet (10 mg) by mouth 1 (one) time each day. 3 Active [facility] [place] 0.05 % nasal spray SPRAY 2 SPRAY BY INTRANASAL ROUTE 2 TIMES EVERY DAY IN EACH NOSTRIL IN THE MORNING AND EVENING 3 Active ALPRAZolam (Xanax) 1 MG tablet Take 1 tab 1 hour prior to procedure, if no change in anxiety in 30 minutes take 2nd tab. Bring 3rd tab to office with local delivery truck driver. 3 tablet 4 Active ferrous sulfate 325 (65 Fe) MG tablet Take 1 tablet (325 mg) by mouth 1 (one) time each day. 4 Active metFORMIN XR (Glucophage-XR) 500 MG 24 hr tablet 4 Active cyclobenzaprine (Flexeril) 10 MG tabletIndications: Midline thoracic back pain, unspecified chronicity,Muscle spasm Take 1 tablet (10 mg) by mouth 3 (three) times a day if needed for muscle spasms. 90 tablet 2 4 Active DULoxetine (Cymbalta) [address] capsuleIndications :Myofascial pain,Paresthesia of skin Take 1 capsule (60 mg) by mouth 1 (one) time each day. Do not crush or chew. 90 capsule 1 4 Active celecoxib (CeleBREX) 200 MG capsuleIndications :Midline thoracic back pain, unspecified chronicity,Myofasc ial pain,Lumbar back pain,Facet arthropathy,Verteb rogenic pain,Lumbar radiculopathy Take 1 capsule by mouth 2 times a day. 60 capsule 5 5 Active Active Problems Problem Noted Date Diagnosed Date Mixed anxiety depressive disorder 12/09/2019 Encounters Date Type Department Care Team Description 03/27/2025 10:00 AM EDT Office Visit [facility] [address] [place] [address] Jefferson Mccarthy, DO Midline thoracic back pain, unspecified chronicity; Myofascial pain; Lumbar back pain; Facet arthropathy; Vertebrogenic pain; Lumbar radiculopathy 03/27/2025 Travel from Last 3 Months Immunizations Immunization Administration Dates Next Due Influenza, injectable, quadrivalent, preservativ e free 06/20/2022 [employer] COVID-19 Vaccine (Purple Cap) 12 + 12/25/2020,11/18/2020 Family History Medical History Relation Name Comments Diabetes type II Father Diabetes type II Mother Heart attack Mother Stroke Mother Relation Name Status Comments Father Mother Social History Tobacco Use Types Packs/Day Years [...] on file Sexual Orientation Not on file Last Filed Vital Signs Vital Sign Reading Time Taken Comments Blood Pressure 108/79 03/27/2025 10:07 AM EDT Pulse 82 03/27/2025 10:07 AM EDT Temperature 35.9 C (96.6 F) 08/16/2024 10:36 AM EST Respiratory Rate 18 12/24/2024 9:27 AM EDT Oxygen Saturation 96% 03/27/2025 10:07 AM EDT Inhaled Oxygen Concentration - - Weight 104 kg (230 lb) 03/27/2025 10:07 AM EDT Height 182.9 cm (6') 03/27/2025 10:07 AM EDT Body Mass Index 31.19 03/27/2025 10:07 AM EDT Plan of Treatment Upcoming Encounters Date Type Department Care Team (Late st Contact Info) Description 09/30/2025 11:20 AM EST Office Visit [facility] [address] [place] [address] Jefferson Mccarthy, DO [address] [place] [id number] Health Maintenance Due Date Last Done Comments [facility]-HIV Screening 1979 [facility]-Hepatitis C Screening 1979 [facility]-Infant/Child/Adol SDOH Screenings 1979 [facility]-Varicella Vaccines (1 of 2 - 13+ 2-dose series) 1992 [facility]- SDOH Screenings 1997 [facility]-Adult SDOH Screenings 1997 [facility]-DTaP,Tdap,and Td Vaccines (1 - Tdap) 1998 [facility]-Hepatitis B Vaccines (1 of 3 - 19+ 3-dose series) 1998 [facility]-Pneumococcal Vaccine: Pediatrics (0 to 5 Years) and At-Risk Patients (6 to 49 Years) (1 of 2 - PCV) 1998 HPV Vaccines (1 - 3-dose SCDM series) 2006 CT Colonography 2024 Colonoscopy 2024 FIT-DNA 2024 FIT 2024 FOBT 2024 Sigmoidoscopy 2024 [facility]-Colorectal Cancer Screening 2024 [id number] Vaccine ( season) 2025 06/20/2022, 12/25/2020, 11/18/2020 [facility]-Influenza Vaccine (#1) 05/12/202506/05, 07/14/2023, 06/20/2022 [facility]-Depression Screening 03/27/2026 03/27/2025 [facility]-Zoster Vaccines (1 of 2) 2029 [facility]-Obesity Intervention Completed 025, 12/24/2024, 08/20/2024, Additional history exists [facility]-HIB Vaccines Aged Out No longer e ligible based on patient's age to complete this topic [facility]-Hepatitis A Vaccines Aged Out No longer eligible based on patient's age to complete this topic [facility]-IPV Vaccines Aged Out No longer e ligible based on patient's age to complete this topic [facility]-Rotavirus Vaccines Aged Out No lo nger eligible based on patient's age to complete this topic Insurance ANTH Care Teams Chalker Soles Relationship Specialty Start Date End Date Nakia Ramirez APRN [address] [place] [address] PCP - General 07/13/22
--- OUTSIDE RECORDS SUMMARY | 2025-05-19 13:52 | XMS_ITS | Clinical Summary ---
Author Organization [facility] Address [address] [place] [address] Care Team Providers Care Property Custodian Name Role Phone Nakia Ramirez APRN Primary Care Provider [phone] Allergies No known active allergies Medications cyclobenzaprine (FLEXERIL) 10 MG tablet Take 1 tablet by mouth. 10/18/2023 Active DULoxetine (CYMBALTA) 60 MG capsule TAKE 1 CAPSULE (60 MG) BY MOUTH 1 (ONE) TIME EACH DAY. DO NOT CRUSH OR CHEW. Active loratadine (CLARITIN) 10 MG tablet Take 1 tablet by mouth Daily. 12/08/2023 Active omeprazole (priLOSEC) 40 MG capsule TAKE ONE CAPSULE DAILY WITH 8 OZ. WATER, 20 MIN PRIOR TO EATING 12/18/2023 Active ezetimibe (ZETIA) 10 MG tablet Take 1 tablet by mouth Daily. Active rosuvastatin (CRESTOR) 10 MG tablet Take 1 tablet by mouth Daily. Active Cholecalciferol 25 MCG (1000 UT) tablet Take 1 tablet by mouth Daily. Active sertraline (ZOLOFT) 50 MG tablet Take 1 tablet by mouth Daily. Active Active Problems Problem Noted Date Diagnosed Date Back pain of thoracolumbar region 01/12/2024 DDD (degenerative disc disease), thoracic 2023 DDD (degenerative disc disease), lumbar 01/12/20 24 Social History Tobacco Use Types Packs/Day Years Used Date Smoking Tobacco: Every Day Cigarettes Smokeless Tobacco: Never Tobacco Cessation:Ready to Q uit: Not Asked Alcohol Use Standard Drinks/Week Comments Never 0 (1 standard drink = 0.6 oz pur e alcohol) Abuse Screen Answer Date Recorded Unsafe at Home or Work/School Not on file Feels Threatened by Someone? Not on file Does Anyone Keep You from Co ntacting Others or Doint Things Outside the Home? Not on file 10/26/2023 Physical Sign of Abuse Present Not on file 0 10/26/2023 Housing Stability Answer Date Recorded Current Living Arrangements Not on file 10/12 Potentially Unsafe Housing Conditions Not on kam e 10/26/2023 Family and Community Support Answer José Manuel e Recorded Help with Day-to-Day Activities Not on file 10/26/2023 Lonely or Isolated Not on file 10/26/2023 Employment Answer Date Recorded Do you want help finding or keeping work or a enio b? Not on file 10/26/2023 Disabilities Answer Date Recorded Concentrating, Remembering, or Making Decisions Difficulty Not on file 10/26/2023 Doing Errands Independently Difficulty Not on fi le 10/26/2023 Education Answer Date Recorded Help with school or training? Not on file Preferred Language Not on file 10/26/2023 Sex and Gender Information Value Date Recorded Sex Assigned at Not on file Legal Sex Male 2:19 PM EST Gender Identity Not on file Sexual Orientation Not on file Last Filed Vital Signs Vital Sign Reading Time Taken Comments Blood Pressure - - Pulse - - Temperature 36.3 C (97.3 F) 01/12/2024 8:59 AM EDT Respiratory Rate - - Oxygen Saturation - - Inhaled Oxygen Concentration - - Weight 106 kg (233 lb 4.8 oz) 01/12/2024 8:59 AM EDT Height 182.9 cm (6') 01/12/2024 8:59 AM EDT Body Mass Index 31.64 01/12/2024 8:59 AM EDT Plan of Treatment Health Maintenance Due Date Last Done Comments Pneumococcal Vaccine 0-49 (1 of 2 - PCV) 1998 TDAP/TD VACCINES (1 - Tdap) 1998 ANNUAL PHYSICAL 01/12/2024 HEPATITIS C SCREENING 01/12/2024 COLOGUARD 2024 COLON CANCER SCREENING 5 YEA R SIGMOIDOSCOPY 2024 COLONOSCOPY 2024 COLORECTAL CANCER SCREENING 2024 CT COLONOGRAPHY 2024 FECAL OCCULT BLOOD TEST 2024 FIT Testing (1 year) 2024 COVID-19 Vaccine ( season) 2025 06/20/2022, 12/25/2020, 11/18/2020 INFLUENZA VACCINE 06/11/2025 07/14/2023, 06/20/2022 Insurance Care Teams Property Custodian Relationship Specialty Start Date End Date Nakia Ramirez APRN [address] [place] [address] PCP - General Family Medicine 10/26/23
--- OUTSIDE RECORDS SUMMARY | 2025-05-19 13:52 | XMS_ITS | Encounter Summary ---
Author Organization [facility] Address [address] [place] [address] Care Team Providers Care Stile Ripsaw Operator Name Role Phone Nakia Ramirez APRN Primary Care Provider + Reason for Referral * Consultation (Routine) - Closed Specialty Diagnoses / Procedures Referred By Contkaren t Referred To Contact Orthopaedic Surgery Diagnoses Midline thoracic back pain, unspecified chronicity Lumbar back pain Nakia Ramirez APRN [address] [place] [address] Phone: tel: fax: Medical Office [facility] [address] [facility] [facility], [address] [place] [address] Phone: tel: fax: Referral ID Status Reason Start Date Expiration Date Visits Re quested Visits Authorized [id number] Closed 07/05/2022 01/04/2024 1 1 Encounter Details Date Type Department Care Team (Late st Contact Info) Description 07/05/2022 Community [facility] [address] [place] [address] Nakia Ramirez APRN [address] [place] [address] (Fax) Midline thoracic back pain, unspecified chronicity (Primary Dx); Lumbar back pain Social History Tobacco Use Types Packs/Day Years Used Date Smoking Tobacco: Never Assessed Sex and Gender Information Value Date Recorded Sex Assigned at Not on file Legal Sex Male 7:40 PM EDT Gender Identity Not on file Sexual Orientation Not on file documented as of this encounter Plan of Treatment Upcoming Encounters Date Type Department Care Team (Late st Contact Info) Description 09/30/2025 11:20 AM EST Office Visit [facility] [address] [place] [address] Jefferson Mccarthy, [address] [place] [address] Scheduled Referrals Name Type Priority Associated Diagnoses Orde r Schedule Ambulatory referral to Orthopaedics Spine Outpatient Referral Routine Midline thoracic back pain, unspecified chronicity Lumbar back pain Expected: 07/05/2022 (Approximate), Expires: 01/04/2024 documented as of this encounter Visit Diagnoses Diagnosis Midline thoracic back pain, unspecified chronicity- Primary Lumbar back pain Lumbago documented in this encounter Care Teams Stile Ripsaw Operator Relationship Specialty Start Date End Date Nakia Ramirez APRN [address] [place] [address] PCP - General 07/13/22 documented as of this encounter
--- OUTSIDE RECORDS SUMMARY | 2025-05-19 13:52 | XMS_ITS | Encounter Summary ---
Author Organization [facility] Address [address] [id number] Care Team Providers Care Facilities Mechanical Design Engineer Name Role Phone RamirezNakia Davion MENDEZ Primary Care Provider [phone] Encounter Details Date Type Department Care Team (Latest Contact Info) Description 03/27/2025 Travel Social History Tobacco Use Types Packs/Day Years Used Date Smoking Tobacco: Every Day Cigarettes 1 23.7 Started: 09/11/2001 Smokeless Tobacco: Never Alcohol Use Standard Drinks/Week Comments Never 0 [...] on file documented as of this encounter Functional Status * Over the past 2 weeks, how often have you been bothered by any of the following problems? Question Answer Date of Assessment Author Little interest or pleasure in doing things Several days 03/27/2025 10:11 AM Aryan Olivas RN Feeling down, depressed, or hopeless Several days 03/27/2025 10:11 AM Sara Olivas RN Patient Health Questionnaire-2 Score 2 03/27/2025 10:11 AM Praveen Olivas RN * Calculated C-SSRS Risk Score (Lifetime/Recent) Answer Date of Assessment Author No Risk Indicated 03/27/2025 10:11 AM Sara Brito RN * If you checked off any [...] 1 Month) No 03/27/2025 10:11 AM EDT Sara Sanchez RN 2. Non-Specific Active Suici mariel Thoughts (Past 1 Month) No 03/27/2025 10:11 AM EDT Kira Sanchez RN 6. Suicidal Behavior (Lifetime) No 10:11 AM EDT Sara Sanchez RN documented as of this encounter Plan of Treatment Upcoming Encounters Date Type Department Care Team (Late st Contact Info) Description 09/30/2025 11:20 AM EST Office Visit [facility] [address] [place] [address] Jefferson Mccarthy DO [address] [facility] [address] [place] [address] documented as of this encounter Visit Diagnoses Not on filedocumented in this encounter Additional Health Concerns Assessment Noted Time A fall risk assessment has been complete d for the patient 03/27/2025 10:10 AM EDT A Body Mass Index follow-up plan has been documented for the patient 03/27/2025 11:43 AM EDT documented as of this encounter Care Teams Facilities Mechanical Design Engineer Relationship Specialty Start Date End Date Nakia Ramirez APRN [address] [place] [address] PCP - General 07/13/22 documented as of this encounter
--- NOTE | 2025-05-19 13:55 | CT_ITS ---
FINAL REPORT TECHNIQUE: Thin section axial images are obtained through the abdomen and pelvis after intravenous contrast. Reconstruction images were obtained from the axial data. Exam was performed using dose reduction techniques. CLINICAL HISTORY: Midepigastric pain, worse with eating FINDINGS: LUNG BASES: There are areas of atelectasis in the lower lungs bilaterally. Heart size is normal. LIVER: Enlarged and fatty infiltrated. No focal lesion. GALLBLADDER/BILIARY SYSTEM: Gallbladder is present. Gallstones are present. No biliary dilatation. SPLEEN: Unremarkable. PANCREAS: Unremarkable. ADRENALS: Unremarkable. KIDNEYS/URETERS/BLADDER: No hydronephrosis, renal mass, or renal stone. Unremarkable urinary bladder. GI TRACT: Wall thickening of the gastric fundus is seen with subtle surrounding abnormal attenuation. No small bowel obstruction or dilatation. Normal appendix. Remaining GI tract is without acute abnormality. PELVIC ORGANS: Unremarkable for age. LYMPH NODES/RETROPERITONEUM/MESENTERY: Enlarged gastrohepatic lymph nodes are seen measuring up to 23 mm. No other lymphadenopathy. No abdominal aortic aneurysm. ABDOMINAL WALL: The abdominal wall is intact. FREE FLUID: No ascites. BONES: No acute osseous abnormality. IMPRESSION: Focal wall thickening of the gastric fundus with subtle surrounding abnormal attenuation which could be related to gastritis. Neoplasm considered less likely but not entirely excluded. Consider endoscopy for further evaluation. Gastrohepatic ligament lymphadenopathy which could be reactive or neoplastic. Fatty infiltration of the liver. Cholelithiasis. Reviewed, Interpreted and Dictated by Valerie Jesus MD Transcribed by Leanne Yoon Authenticated and . [facility]
--- NOTE | 2025-05-19 13:57 | ED_ITS ---
<Statement entered by Swetha Castillo DO - 05/19/25 19:13> I was consulted by the MAYCO, and we discussed the complexity of problems being addressed. I approve the treatment and management plan for this patient's care in the emergency department, thus performing a substantial portion of the medical decision making. Swetha Castillo DO <Statement entered by Braxton Smaano MD - 05/19/25 19:01> I was consulted by the MAYCO, and we discussed the complexity of the problems being addressed. I approve the treatment and management plan for this patient's care in the emergency department, thus performing a substantive portion of the medical decision making. Braxton Samano MD Discharge Plan Disposition Patient Disposition: Home, Self-Care Condition: Good Prescriptions Prescriptions: New sucralfate 1 gram tablet 1 g PO DAILY Qty: 30 0RF No Action sertraline 50 mg tablet 50 mg PO DAILY Patient Comments: TAKE 1 TABLET BY MOUTH EVERY DAY topiramate 50 mg tablet 50 mg PO DAILY ezetimibe 10 mg tablet 10 mg PO DAILY diclofenac sodium 75 mg tablet,delayed release (DR/EC) 75 mg PO DAILY Patient Comments: TAKE 1 TABLET (75 MG) BY MOUTH 2 (TWO) TIMES A DAY. DO NOT CRUSH, CHEW, OR SPLIT. duloxetine 60 mg capsule,delayed release(DR/EC) 60 mg PO DAILY Patient Comments: TAKE 1 CAPSULE (60 MG) BY MOUTH 1 (ONE) TIME EACH DAY. DO NOT CRUSH OR CHEW. cholecalciferol (vitamin D3) 50 mcg (2,000 unit) capsule 50 mcg PO DAILY Patient Comments: TAKE 1 CAPSULE BY ORAL ROUTE EVERY DAY FOR VITAMIN D DEFICIENCY cyclobenzaprine 10 mg tablet 10 mg PO DAILY Patient Comments: TAKE 1 TABLET (10 MG) BY MOUTH 3 (THREE) TIMES A DAY IF NEEDED FOR MUSCLE SPASMS. metformin 500 mg tablet extended release 24 hr 500 mg PO DAILY Patient Comments: TAKE 1 TABLET BY ORAL ROUTE 2 TIMES EVERY DAY WITH THE EVENING MEAL omeprazole 40 MG capsule,delayed release(DR/EC) 40 mg PO DAILY hydrocodone-acetaminophen 5-325 mg Tablet 1 - 2 tab PO Q6H PRN (Reason: Pain) Qty: 21 0RF Referrals Follow up/Referrals: Bj Kelley II, MD [Staff Physician, Gastroenterology] - See instructions Ramirez,Nakia, FIELD ADMINISTRATIVE ASSISTANT [Primary Care Provider, Medical] - See instructions Activity Restrictions/Add. Instructions Additional Instructions/Restrictions: Please follow-up with GI doctor and PCP in the upcoming days/weeks, please follow-up with GI physician regarding potential ulcer/gastritis formation. May need endoscopy or upper GI scope, please follow-up with your PCP to have your liver enzymes rechecked. Please return to the emergency department with any worsening signs or symptoms. Please limit spicy foods, NSAIDs, and alcohol use. Please continue take all your medications as prescribed. Clinical Impressions Clinical Impression: Gastritis, Cholelithiasis, Transaminitis Instructions Patient Instructions: DI for Gallstones, DI for Gastritis Print Language Print Language: Ukrainian Discharge ED Provider: Swetha Castillo HPI <HERMANN Bermudez - Last Filed: 05/19/25 16:51> General Chief Complaint: Chest Pain Stated Complaint: CP Time Seen by Provider: 05/19/25 13:48 Mode of Arrival: Ambulatory Source of Information: Patient Description of Symptoms (Recalled from ER Triage Doc. by RN): patient states he has had substernal chest pain that is stabbing for 2 days. gets worse when eating 7/10 pain denies SOB History of Present Illness HPI narrative: 44-year-old male presents to the emergency department with midepigastric/substernal chest pain that is nonradiating describes it as stabbing, and crampy, is worse within the last 2 days, but has been ongoing intermittently for the last week. Patient states that eating makes it worse, he denies any fever chills or shortness of breath accompanying this pain, patient states currently it is a 3 or 4 out of 10, this morning it was a 7 out of 10 , which prompted emergency department visit. Patient has some nausea at times, denies any nausea currently, denies any vomiting constipation diarrhea melena hematochezia hematemesis or hemoptysis, no urinary type symptomatology, no recent sick contacts, no fever or chills. Initial triage vitals are unremarkable. Other past medical history is consistent with degenerative disc disease of the spine, status post umbilical hernia repair, GERD, hyperlipidemia, T2DM, MDD/MEGHAN, of note patient states he recently taken off his cyclobenzaprine for his lower back pain started on what sounds like celecoxib . Patient is a current everyday smoker denies any alcohol or drug use. Please note that above description of symptoms, in this electronic medical record under categorization of recalled from ER triage doctor by RN are reflective of an initial nursing assessment, however, is not reflective of my full history and physical exam that was personally taken and clarified. Consequentially, this preceding description of symptoms, which may include the patient's categorized chief complaint in the EMR, do not reflect my personal clinical impression, and the ultimate description of history of present illness and patient stated complaints should be deferred to this section of the note. Unless stated otherwise or congruent with this section of the note, additional signs, symptoms, or incongruence should be interpreted as inaccurate with my clinical impression. MD complaint: chest pain Duration: intermittent Activity at onset: after eating Pain location: substernal Related Data Home Medications ?Medication ?Instructions ?Recorded ?Confirmed omeprazole 40 mg capsule,delayed 40 mg PO DAILY acid r eflux 02/05/21 10/28/24 release sertraline 50 mg tablet 50 mg PO DAILY 11/18/2110/12 cholecalciferol (vitamin D3) 50 50 mcg PO DAILY 10/28/24 mcg (2,000 unit) capsule cyclobenzaprine 10 mg tablet 10 mg PO DAILY 10/03/24 0 10/28/24 diclofenac sodium 75 mg 75 mg PO DAILY 10/03/2410/12 tablet,delayed release duloxetine 60 mg capsule,delayed 60 mg PO DAILY 10/28/24 release ezetimibe 10 mg tablet 10 mg PO DAILY 10/03/2410/12 metformin 500 mg tablet,extended 500 mg PO DAILY 10/0310/28/24 release 24 hr topiramate 50 mg tablet 50 mg PO DAILY 10/03/2410/12 Previous Rx's ?Medication ?Instructions ?Recorded hydrocodone 5 mg-acetaminophen 325 1 - 2 tab PO Q6H ID N Pain #21 tabs 10/28/24 mg tablet sucralfate 1 gram tablet 1 g PO DAILY #30 tabs Allergies Allergy/AdvReac Type Severity Reaction Status Date / Time No Known Allergies Allergy Verified 10/28/24 06:26 [facility] <HERMANN Bermudez - Last Filed: 05/19/25 16:51> [facility] Disclaimer: The information contained in this section may have been updated after the patient was seen, as this information can be updated by other users. Medical History (Updated 05/19/25 @ 16:47 by HERMANN Bermudez) GERD (gastroesophageal reflux disease) Chronic back pain HLD (hyperlipidemia) Diabetes Surgical History History of prior ablation treatment History of foot surgery Family History Other Family history of dementia Family history of diabetes mellitus Family history of kidney disease Social History Smoking Status: Current every day smoker tobacco type: cigarettes packs per day: 1 second hand exposure: Yes alcohol intake: never substance use type: denies use current occupational status: employed and disabled Travel in the last 8 weeks?: Inside the [place] household members: significant other and children housing: house current occupation: [employer] current occupational exposures/hazards: No caffeine: Yes Have you lived/traveled outside [place] in past 30 days?: No Contact w/someone who lives/traveled outside US past 30 days?: No Exposure to someone with infectious disease in past 14 days?: No Do you have a fever (greater than 100.4 F or 38 C)?: No Have you tested positive for COVID-19?: No Exposed to someone with COVID-19 in past 14 days?: No Do you have a sore throat?: No Do you have a cough?: No Do you have any weakness?: No Do you have any diarrhea?: No Are you experiencing any unusual bleeding?: No Do you have any muscle aches/pain?: No Do you have any abdominal pain?: No Are you experiencing loss of taste or smell?: No Other Medical History Have you received the Flu Vaccine for this season: Yes Have you received the Pneumonia Vaccine: No <HERMANN Bermudez - Last Filed: 05/19/25 16:51> ROS Obtained: Yes All systems reviewed & no additional complaints except as documented Physical Exam <HERMANN Bermudez - Last Filed: 05/19/25 16:51> General General appearance: alert and in no apparent distress Head Head exam: atraumatic and normocephalic Eye Eye exam: Present normal appearance, PERRL and EOMI Neck Neck exam: Present full ROM; Absent meningismus Chest Chest inspection: Present normal inspection; Absent tenderness Respiratory Respiratory exam: Absent respiratory distress, wheezes, stridor, accessory muscle use or prolonged expiratory phase Cardiovascular Cardiovascular exam: Present normal rhythm and other (Pulses equal and symmetric in bilateral upper and lower extremities) Abdominal Exam Abdominal exam: Absent distention, tenderness, guarding, rebound or rigidity Extremities Exam Extremities exam: Absent edema Neurological Exam Neurological exam: Present alert Psychiatric Psychiatric exam: Present normal affect Skin Skin exam: Present warm and dry HEART Score <HERMANN Bermudez - Last Filed: 05/19/25 16:51> HEART Score HEART Score assessment performed?: Yes HEART Score: 2 <Swetha Castillo DO - Last Filed: 05/19/25 19:14> HEART Score HEART Score: 2 Critical Care <HERMANN Bermudez - Last Filed: 05/19/25 16:51> Critical Care Time Critical Care Time: No Medical Decision Making <HERMANN Bermudez - Last Filed: 05/19/25 16:51> Medical Records Medical records reviewed: Yes I reviewed the patient's medical records. Lee Inquiry Pt receiving controlled substance: Yes Lee was queried for this patient: No Reason not queried -: Emergent pt cond-no time Risks and benefits of using a controlled substance: were discussed with pt by me Vital Signs Vital Signs: 05/19/25 13:54 05/19/25 14:30 05/19/25 14:54 Temperature 98.6 F Temperature Source Oral Pulse Rate 90 63 Pulse Rate [Right Radial] 89 Respiratory Rate 16 10 L 14 Blood Pressure 110/77 110/77 Blood Pressure [Right Arm] 131/84 Blood Pressure Mean [Right Arm] 99 Blood Pressure Source Blood Pressure Source [Right Arm] Automatic Cuff Blood Pressure Position Blood Pressure Position [Right Arm] Sitting 02 Sat by Pulse Oximetry 98 91 L 95 Oxygen Delivery Method Room Air 05/19/25 15:01 05/19/25 15:20 05/19/25 15:40 Temperature Temperature Source Pulse Rate 71 67 65 Pulse Rate [Right Radial] Respiratory Rate 12 20 19 Blood Pressure 120/74 116/79 112/77 Blood Pressure [Right Arm] Blood Pressure Mean [Right Arm] Blood Pressure Source Blood Pressure Source [Right Arm] Blood Pressure Position Blood Pressure Position [Right Arm] 02 Sat by Pulse Oximetry 98 94 L 94 L Oxygen Delivery Method 05/19/25 16:00 05/19/25 16:20 05/19/25 16:58 Temperature 98.7 F Temperature Source Oral Pulse Rate 65 67 76 Pulse Rate [Right Radial] Respiratory Rate 18 16 15 Blood Pressure 111/79 114/83 135/76 Blood Pressure [Right Arm] Blood Pressure Mean [Right Arm] Blood Pressure Source Automatic Cuff Blood Pressure Source [Right Arm] Blood Pressure Position Sitting Blood Pressure Position [Right Arm] 02 Sat by Pulse Oximetry 97 96 Oxygen Delivery Method Room Air Lab Data Lab results reviewed: Yes I reviewed the patient's lab results. Labs: Lab Results 05/19/25 13:52: WBC 9.4, RBC 5.24, Hgb 16.3, Hct 47.1, MCV 89.9, MCH 31.1, MCHC 34.6, RDW 13.3, Plt Count 197, MPV 11.5 H, Neut % (Auto) 61.9, Lymph % (Auto) 26.6, [place] % (Auto) 8.8, Eos % (Auto) 1.4, Baso % (Auto) 0.9, Neut # (Auto) 5.8, Lymph # (Auto) 2.5, [place] # (Auto) 0.8, Eos # (Auto) 0.1, Baso # (Auto) 0.1, PT 10.2, INR 0.91, D-Dimer 0.65 H, Sodium 139, Potassium 4.0, Chloride 103, Carbon Dioxide 28, Anion Gap 12.0, BUN 11, Creatinine 1.10, Estimated Creat Clear 128, Estimated GFR 72, Est GFR ( Amer) 88, Glucose 109 H, Calcium 9.4, Total Bilirubin 0.7, AST 210 H, ALT 162 H, Alkaline Phosphatase 101, Troponin I < 0.01, NT-Pro-B Natriuret Pep < 20.0, Total Protein 7.9, Albumin 4.7, Globulin 3.2, Albumin/Globulin Ratio 1.5, Lipase 92, HCV Ab STAR w/Rflx PCR Qn Negative, HIV Ag/Ab Combo Qual Negative 05/19/25 16:29: Troponin I < 0.01 05/19/25 13:52 05/19/25 13:52 Response Orders (Tests/Meds): ED MEDICATIONS Discontinued Medications Generic Name Dose Route Start Last Admin Trade Name Freq PRN Reason Stop Dose Admin Belladonna Alkaloids 60 ml 05/19/25 13:55 05/19/25 14:09 Belladonna Alkaloids 60 Ml Ml PO 05/19/25 13:56 60 ml ONCE ONE Administration Iopamidol 75 ml 05/19/25 14:44 05/19/25 14:45 Iopamidol-370 (76%);100ml Bottle IV 05/19/25 14:45 75 ml ONCE ONE Administration Morphine Sulfate 2 mg 05/19/25 13:55 05/19/25 14:11 Morphine 2mg/Ml Syringe IV 05/19/25 13:56 2 mg ONCE ONE Administration Ondansetron HCl 4 mg 05/19/25 13:56 05/19/25 14:11 Ondansetron 4mg/2ml Vial IV 05/19/25 13:57 4 mg ONCE ONE Administration Sodium Chloride 10 ml 05/19/25 14:44 05/19/25 14:45 Sodium Chloride 0.9% 10ml Syr (Rad Only) IV 05/19/25 14:45 10 ml ONCE ONE Administration ORDERS Category Date Time Status CT abdomen pelvis w con Stat Cat Scan 05/19/25 13:55 Completed POCUS Point of Care (ER Only) Stat Exams 05/19/25 16:34 Completed XR chest portable Stat Exams 05/19/25 13:48 Completed Complete Blood Count Auto Diff Stat Lab 05/19/25 13:52 Completed Comprehensive Metabolic Panel Stat Lab 05/19/25 13:52 Completed D-Dimer Stat Lab 05/19/25 13:52 Completed HIV Combo Stat Lab 05/19/25 13:52 Completed Hepatitis C Ab Qual. W/ RFX Stat Lab 05/19/25 13:52 Completed Lipase Stat Lab 05/19/25 13:52 Completed NT Pro Brain Natriuretic Pep. Stat Lab 05/19/25 13:52 Completed PT INR [Prothrombin Time INR] Stat Lab 05/19/25 13:52 Completed Troponin I Q3H Lab 05/19/25 16:29 Completed Troponin I Stat Lab 05/19/25 13:52 Completed MDM Narrative Medical Decision Narrative: 44-year-old male presents to the emergency department with midepigastric substernal chest pain that has been intermittent for the last week, worsened within the last 2 days as well as today, differential diagnosis include but not limited to ACS, cardiac arrhythmia, electrolyte disturbance, PE, gastritis, GERD, PUD, pneumonia, costochondritis, pneumothorax, ileitis, colitis, among others. I discussed this patient's case with the attending physician as well as Dr. Castillo Will obtain basic laboratory studies, EKG, chest x-ray, CT head and pelvis with contrast, lipase level, D-dimer, proBNP, troponins, PT/INR, will give GI cocktail 60 mL p.o., will give 2 mg IV morphine and 4 mg IV Zofran for pain and nausea. CBC unremarkable AST is significantly elevated 210, ALT is elevated at 162, lipase is normal limits, otherwise unremarkable CMP. Troponin is within normal limits at less than 0.01, proBNP is within normal limits. Coags within normal limit D-dimer is minimally elevated at 0.65, utilizing years criteria, patient thought to be negative for PE I reviewed the patient's chest x-ray along with corresponding radiologic report, no radiographic evidence of acute cardiac or pulmonary disease on the single view of chest. Of note, nursing staff informed me that patient did recently return from a trip where he did do some drinking . Patient is not a current everyday drinker, occasionally social drinks alcohol. I reviewed the patient's CT abdomen pelvis with contrast along the corresponding radiological report, focal wall thickening of the gastric fundus with subtle surrounding abnormal attenuation which could be related to gastritis, neoplasm considered less likely but not entirely excluded, consider endoscopy for further evaluation, gastrohepatic ligament lymphadenopathy which could be reactive or neoplastic fatty metrician of the liver cholelithiasis. Because of this, will obtain POCUS of the RUQ. Bedside/POCUS ultrasound performed by myself and attending physician, shows cholelithiasis, no cholecystitis, no biliary ductal dilatation, see ultrasound report per attending physician for full results. I discussed the results with the patient at the bedside at around 4:35 PM, patient states his pain is currently subsided, would recommend follow-up with GI, will prescribe Carafate, p.o., daily or until GI follow-up, continue with PPI, prophylactically treat for PUD. Patient voiced understanding and agreement with the current treatment plan/discharge plan. Will follow-up with GI and PCP to recheck his liver enzymes. Strict ED return precautions given. <Swetha Castillo, DO - Last Filed: 05/19/25 19:14> Vital Signs Vital Signs: 05/19/25 13:54 05/19/25 14:30 05/19/25 14:54 Temperature 98.6 F Temperature Source Oral Pulse Rate 90 63 Pulse Rate [Right Radial] 89 Respiratory Rate 16 10 L 14 Blood Pressure 110/77 110/77 Blood Pressure [Right Arm] 131/84 Blood Pressure Mean [Right Arm] 99 Blood Pressure Source Blood Pressure Source [Right Arm] Automatic Cuff Blood Pressure Position Blood Pressure Position [Right Arm] Sitting 02 Sat by Pulse Oximetry 98 91 L 95 Oxygen Delivery Method Room Air 05/19/25 15:01 05/19/25 15:20 05/19/25 15:40 Temperature Temperature Source Pulse Rate 71 67 65 Pulse Rate [Right Radial] Respiratory Rate 12 20 19 Blood Pressure 120/74 116/79 112/77 Blood Pressure [Right Arm] Blood Pressure Mean [Right Arm] Blood Pressure Source Blood Pressure Source [Right Arm] Blood Pressure Position Blood Pressure Position [Right Arm] 02 Sat by Pulse Oximetry 98 94 L 94 L Oxygen Delivery Method 05/19/25 16:00 05/19/25 16:20 05/19/25 16:58 Temperature 98.7 F Temperature Source Oral Pulse Rate 65 67 76 Pulse Rate [Right Radial] Respiratory Rate 18 16 15 Blood Pressure 111/79 114/83 135/76 Blood Pressure [Right Arm] Blood Pressure Mean [Right Arm] Blood Pressure Source Automatic Cuff Blood Pressure Source [Right Arm] Blood Pressure Position Sitting Blood Pressure Position [Right Arm] 02 Sat by Pulse Oximetry 97 96 Oxygen Delivery Method Room Air Lab Data Labs: Lab Results 05/19/25 13:52: WBC 9.4, RBC 5.24, Hgb 16.3, Hct 47.1, MCV 89.9, MCH 31.1, MCHC 34.6, RDW 13.3, Plt Count 197, MPV 11.5 H, Neut % (Auto) 61.9, Lymph % (Auto) 26.6, [place] % (Auto) 8.8, Eos % (Auto) 1.4, Baso % (Auto) 0.9, Neut # (Auto) 5.8, Lymph # (Auto) 2.5, [place] # (Auto) 0.8, Eos # (Auto) 0.1, Baso # (Auto) 0.1, PT 10.2, INR 0.91, D-Dimer 0.65 H, Sodium 139, Potassium 4.0, Chloride 103, Carbon Dioxide 28, Anion Gap 12.0, BUN 11, Creatinine 1.10, Estimated Creat Clear 128, Estimated GFR 72, Est GFR ( Amer) 88, Glucose 109 H, Calcium 9.4, Total Bilirubin 0.7, AST 210 H, ALT 162 H, Alkaline Phosphatase 101, Troponin I < 0.01, NT-Pro-B Natriuret Pep < 20.0, Total Protein 7.9, Albumin 4.7, Globulin 3.2, Albumin/Globulin Ratio 1.5, Lipase 92, HCV Ab STAR w/Rflx PCR Qn Negative, HIV Ag/Ab Combo Qual Negative 05/19/25 16:29: Troponin I < 0.01 Response Orders (Tests/Meds): ED MEDICATIONS Discontinued Medications Generic Name Dose Route Start Last Admin Trade Name Freq PRN Reason Stop Dose Admin Belladonna Alkaloids 60 ml 05/19/25 13:55 05/19/25 14:09 Belladonna Alkaloids 60 Ml Ml PO 05/19/25 13:56 60 ml ONCE ONE Administration Iopamidol 75 ml 05/19/25 14:44 05/19/25 14:45 Iopamidol-370 (76%);100ml Bottle IV 05/19/25 14:45 75 ml ONCE ONE Administration Morphine Sulfate 2 mg 05/19/25 13:55 05/19/25 14:11 Morphine 2mg/Ml Syringe IV 05/19/25 13:56 2 mg ONCE ONE Administration Ondansetron HCl 4 mg 05/19/25 13:56 05/19/25 14:11 Ondansetron 4mg/2ml Vial IV 05/19/25 13:57 4 mg ONCE ONE Administration Sodium Chloride 10 ml 05/19/25 14:44 05/19/25 14:45 Sodium Chloride 0.9% 10ml Syr (Rad Only) IV 05/19/25 14:45 10 ml ONCE ONE Administration ORDERS Category Date Time Status CT abdomen pelvis w con Stat Cat Scan 05/19/25 13:55 Completed POCUS Point of Care (ER Only) Stat Exams 05/19/25 16:34 Completed XR chest portable Stat Exams 05/19/25 13:48 Completed Complete Blood Count Auto Diff Stat Lab 05/19/25 13:52 Completed Comprehensive Metabolic Panel Stat Lab 05/19/25 13:52 Completed D-Dimer Stat Lab 05/19/25 13:52 Completed HIV Combo Stat Lab 05/19/25 13:52 Completed Hepatitis C Ab Qual. W/ RFX Stat Lab 05/19/25 13:52 Completed Lipase Stat Lab 05/19/25 13:52 Completed NT Pro Brain Natriuretic Pep. Stat Lab 05/19/25 13:52 Completed PT INR [Prothrombin Time INR] Stat Lab 05/19/25 13:52 Completed Troponin I Q3H Lab 05/19/25 16:29 Completed Troponin I Stat Lab 05/19/25 13:52 Completed
[2025-05-19 14:04] LABS: Hematocrit 47.1 % (42.0-52.0); Hemoglobin 16.3 g/dL (14.1-18.0); Immature Granulocytes % 0.4 %; Mean Corpuscular HGB Conc 34.6 g/dL (31.8-35.4); Mean Corpuscular Hemoglobin 31.1 pg (27.0-31.2); Mean Corpuscular Volume 89.9 fl (80-94); Nucleated Red Blood Cells % 0 %; Platelet Count 197 K/mm3 (142-424); Red Blood Count 5.24 M/mm3 (4.60-6.20); Red Cell Distribution Width-SD 43.9 fL; White Blood Count 9.4 K/mm3 (4.8-10.8)
[2025-05-19] MEDS: BELLADONNA ALKALOIDS 60 ML ML PO (14:09)
[2025-05-19 14:11] LABS: Alanine Aminotransferase 162 U/L (12-78); Albumin Level 4.7 g/dl (3.5-5.0); Albumin/Globulin Ratio 1.5 (1.1-1.8); Alkaline Phosphatase 101 U/L (38-126); Anion Gap 12.0 mEq/L (5-15); Aspartate Amino Transferase 210 U/L (17-59); Bilirubin,Total 0.7 mg/dl (0.2-1.3); Blood Urea Nitrogen 11 mg/dl (9-20); Calcium 9.4 mg/dl (8.4-10.2); Carbon Dioxide 28 mmol/L (22.0-30.0); Chloride 103 mmol/L (98-107); Creatinine Clearance Estimated 128 mL/min (50-200); Creatinine,Serum 1.10 mg/dl (0.66-1.25); Estimated Glomerular Filt Rate 72 ml/min (>60); GFR (African American) 88 ML/MIN (>60); Globulin 3.2 g/dL (1.3-3.2); Glucose 109 mg/dl (74-100); Lipase 92 U/L (23-300); Potassium 4.0 mmoL/L (3.5-5.1); Sodium 139 mmol/L (136-145); Total Protein,Serum 7.9 g/dl (6.3-8.2)
[2025-05-19] MEDS: ONDANSETRON 4MG/2ML VIAL 4 MG IV (14:11)
[2025-05-19] MEDS: MORPHINE 2MG/ML SYRINGE 2 MG IV (14:11)
[2025-05-19 14:22] LABS: INR 0.91 (0.9-1.1); Prothrombin Time 10.2 seconds (10.1-12.5)
[2025-05-19 14:23] LABS: NT Pro Brain Natriuretic Pep. < 20.0 pg/mL (0-125); Troponin I < 0.01 ng/ml (0.00-0.034)
[2025-05-19] MEDS: IOPAMIDOL-370 (76%);100ML BOTTLE 75 ML IV (14:45)
[2025-05-19] MEDS: SODIUM CHLORIDE 0.9% 10ML SYR (RAD ONLY) 10 ML IV (14:45)
[2025-05-19 14:53] LABS: D-Dimer 0.65 ug/mL (0.0-0.5)
[2025-05-19 17:12] LABS: Troponin I < 0.01 ng/ml (0.00-0.034)
[2025-05-19 17:43] LABS: Hepatitis C Ab Qual. W/ RFX NEGATIVE (Negative)
== END 2025-05-19 16:58 | disposition home or self-care (01) ==
PROVIDERS: Physician Assistant; Emergency Provider Student in an Organized Health Care Education/Training Program; PCP Nurse Practitioner Family
DX: R07.2 Precordial pain (principal); R10.13 Epigastric pain; K29.00 Acute gastritis without bleeding; R74.01 Elevation of levels of liver transaminase levels; K80.20 Calculus of gallbladder without cholecystitis without obstruction; F17.210 Nicotine dependence, cigarettes, uncomplicated; E11.9 Type 2 diabetes mellitus without complications; K21.9 Gastro-esophageal reflux disease without esophagitis; E78.5 Hyperlipidemia, unspecified
CPT/HCPCS: 71045; 74177; 80053; 83690; 83880; 84484; 85025; 85378; 85610; 86803; 87389; 93005; 96374; 96375; 99285; J2270; J2405; Q9967

== ENCOUNTER 2025-06-13 08:07 | Emergency (ER) | payer BC, SELFPAY ==
--- OUTSIDE RECORDS SUMMARY | 2025-06-04 06:30 | XMS_ITS | Continuity of Care Document ---
Author Organization [facility] Address [address] [place] [address] Phone Care Team Providers Care Lead Simulation Modeling Engineer Name Role Phone James MSN, TRACK AND FIELD COACH, Nakia Unavailable Unavai lable Allergies, Adverse Reactions, Alerts Substance Reaction Status Criticality No Known Allergies Active No Inform ation Medications Medication Instructions Dosage Effective Dates (start - stop) Status Comments ferrous sulfate 325 mg (65 mg iron) tablet take 1 tablet by oral route every day 325 MG - Active rosuvastatin 20 mg tablet take 1 tablet by oral route every day 20 MG - Active loratadine 10 mg tablet TAKE 1 TABLET BY MOUTH EVERY DAY - Active omeprazole 40 mg capsule,delayed release TAKE ONE CAPSULE DAILY WITH 8 OZ. WATER, 20 MIN PRIOR TO EATING - Active propranolol 40 mg tablet take one tablet two times daily - Active metformin ER 500 mg tablet,extended release 24 hr take 1 tablet by oral route 2 times every day with the evening meal 500 MG - Active Zetia 10 mg tablet TAKE 1 TABLET BY RICHY TH EVERY DAY - Active topiramate 50 mg tablet take 1 tablet by oral route every bedtime 50 MG - Active sertraline 50 mg tablet TAKE 1 TABLET BY MOUTH EVERY DAY - Active fluticasone propionate 50 mcg/actuation nasal spray,suspension SPRAY 1 - 2 SPRAY BY INTRANASAL ROUTE EVERY DAY IN EACH NOSTRIL NEEDED - Active Procedures Procedure Date SCREEN DEPRESSION PERFORMED ROUTINE VENIPUNCTURE HELICOBACTER PYLORI Vitamin b12 injection OFFICE/OUTPATIENT VISIT, [facility] THER/PROPH/DIAG INJ, SC/IM Results Test Name Date and Time Measure Units Reference Range Abnormal Flag Status Commen ts Panel Description: H Pylori Capillary Blood Fin al finger stick 12:08:00 neg Final NOTE: This patient has pending results not included in this document. Advance Directives Directive Yes / No Effective Date File Name No Information Encounters Encounter Description Practice Location Reason(s) For Visit Diagnoses Date Provider OFFICE/OUTPA TIENT VISIT, [facility], [address] [place] [address], [facility], tel:[phone] [facility] Depression Screening (chief complaint)l ab collection (chief complaint)m onthly b12 inj (chief complaint)E R f/u (chief complaint) Encounter for screening for depressionOther cholelithiasis w/o obstructionHyperlipidemi aIron deficiencyNicotine dependence, cigarettes, uncomplicatedType 2 diabetes mellitus without complicationsVitamin B12 deficiencyBody mass index [BMI] 31.0-31.9, adult Sep- 5 Ramirez Nakia. [address], [place], [id number] , [place]. tel:[phone] [facility], [address] [place] [address], [facility], tel:[phone] [facility] Follow up on Labs (chief complaint) Body mass index [BMI] 31.0-31.9, adultType 2 diabetes mellitus without complicationsVitamin B12 deficiencyNicotine dependence, cigarettes, uncomplicated Sung- 5 Ramirez Nakia. [address], [place], [id number] , [place]. tel:[phone] [facility], [address] [place] [address], [address], tel:[phone] [facility] [place] FASTING LABS (chief complaint) Type 2 diabetes mellitus without complications 5 Ramirez Nakia. [address] [place] [address], [id number] , . tel:[phone] [facility], [address] [place] [address], [facility], tel:[phone] [facility] [place] b12 injection (chief complaint)P rapare (chief complaint) Vitamin B12 deficiencyLow income 5 Ramirez Nakia. [address], [place], [id number] , . tel:[phone] [facility], [address] [place] [address], [facility], tel:[phone] [facility] [place] f/u labs (chief complaint) Body mass index [BMI] 32.0-32.9, adultPure hyperglyceridemiaTobacco abuse counselingType 2 diabetes mellitus without complicationsVitamin B12 deficiencyUmbilical hernia 5 Ramirez Nakia. [address] [place] [address], [id number] , [place]. tel:[phone] [facility], [address] [place] [address], [facility], tel:[phone] [facility] [place] FASTING LABS (chief complaint)B 12 INJECTION (chief complaint) Type 2 diabetes mellitus without complicationsVitamin B12 deficiency 4 Ramirez Nakia. [address] [place] [address], [id number] , . tel:[phone] [facility], [address] [place] [address], [facility], tel:[phone] [facility] [place] Follow up on labs (chief complaint) Body mass index [BMI] 31.0-31.9, adultEncounter for immunizationHyperlipidem iaNicotine dependence, chewing tobacco, uncomplicatedVitamin B12 deficiencyType 2 diabetes mellitus without complicationsTinea pedisIron deficiency 4 Ramirez Nakia. [address] [place] [address], [id number] , . tel: [phone] [facility], [address] [place] [address], [facility], tel:[phone] [facility] [place] FASTING LABS (chief complaint)b 12 injection (chief complaint) PrediabetesVitamin B12 deficiency 4 Ramirez Nakia. [address] [place], [id number] , . tel: [phone] [facility], [address] [place] [address], [facility], tel:[phone] [facility] [place] monthly b12 injection (chief complaint)D epression Screening (chief complaint) Vitamin B12 deficiencyEncounter for screening for depression 4 Ramirez Nakia. [address], [place], [id number] , . tel: [phone] [facility], [address] [place] [address], [facility], tel:[phone] [facility] [place] B12 INJECTION (chief complaint) Vitamin B12 deficiency 4 Ramirez Nakia. [address], [place], [id number] , [place]. tel: [phone] [facility], [address] [place] [address], [facility], tel:[phone] [facility] [place] Continued Back Pain (chief complaint)i nsect bite (chief complaint)b 12 (chief complaint) Vertebrogenic low back painVitamin B12 deficiencyInsect bite (nonvenomous) of left upper arm, sequelaBody mass index [BMI] 31.0-31.9, adultNicotine dependence, chewing tobacco, uncomplicatedInsect bite (nonvenomous) of left upper arm, subsequent encounter 4 Ramirez Nakia. [address] [place], [place], [id number] , [place]. tel: [phone] [facility], [address] [place] [address], [facility], tel:[phone] [facility] [place] Monthly B12 injection (chief complaint) Vitamin B12 deficiency 4 Ramirez Nakia. [address], [place], [address] [place] [address] , . tel: [phone] [facility], [address] [place] [address], [facility], tel:[phone] [facility] [place] Low incomeProblem related to primary support group, unspecified 4 Ramirez Nakia. [address], [place], [address] [place] [address] , . tel: [phone] [facility], [address] [place] [address], [facility], tel:[phone] [facility] [place] Follow up on labs (chief complaint) Body mass index [BMI] 31.0-31.9, adultVitamin B12 deficiencyPure hyperglyceridemiaPrediab etesNicotine dependence, chewing tobacco, uncomplicated 4 Ramirez Nakia. [address], [place], [id number] , . tel: [phone] [facility], [address] [place] [address], [facility], tel:[phone] [facility] COUGH (chief complaint) Body mass index [BMI] 31.0-31.9, adultBronchitisVitamin B12 deficiencyPrediabetes Oct- 4 Ramirez Nakia. [address], [place], [id number] , [place]. tel: [phone] [facility], [address] [place] [address], [facility], tel:[phone] [facility] [place] FLU VACCINE (chief complaint) No Information 3 Ramirez Nakia. [address], [place], [id number] , [place]. tel: [phone] [facility], [address] [place] [address], [facility], tel:[phone] [facility] [place] vitamin b12 injection (chief complaint) Vitamin B12 deficiency 3 Ramirez Nakia. [address], [place], [id number] , [place]. tel: [phone] [facility], [address] [place] [address], [facility], [place] tel:[phone] [facility] [place] monthly b12 (chief complaint) Vitamin B12 deficiency 3 Ramirez Nakia. [address], [place], [id number] , [place]. tel: [phone] [facility], [address] [place] [address], [facility], tel:[phone] [facility] [place] INJECTION (chief complaint) Vitamin B12 deficiency 3 Ramirez Nakia. [address], [place], [id number] , [place]. tel: [phone] [facility], [address] [place] [address], [facility], [place] tel:[phone] [facility] [place] Follow up on labs (chief complaint) Body mass index [BMI] 30.0-30.9, adultVitamin B12 deficiencyTobacco abuse counselingPrediabetesLow back pain, unspecifiedHyperlipidemi aUpper respiratory infection 3 Ramirez Nakia. [address], [place], [id number] , [place]. tel: [phone] [facility], [address] [place] [address], [facility], [place] tel:[phone] [facility] [place] Fasting Labs and B12 injection (chief complaint) Vitamin B12 deficiency 0- 3 Ramirez Nakia. [address], [place], [id number] , [place]. tel:[phone] [facility], [address] [place] [address], [facility], tel:[phone] [facility] [place] INJECTION (chief complaint) Vitamin B12 deficiency 3 Ramirez Nakia. [address], [place], [id number] , [place]. tel:[phone] [facility], [address] [place] [address], [facility], tel:[phone] [facility] [place] B12 INJECTION (chief complaint) Vitamin B12 deficiency 3 Ramirez Nakia. [address], [place], [id number] , [place]. tel:[phone] [facility], [address] [place] [address], [facility], [place] tel:[phone] [facility] [place] follow up labs (chief complaint) Body mass index [BMI] 31.0-31.9, adultPrediabetesPure hyperglyceridemiaTobacco abuse counseling Dec- 0- 3 Ramirez Nakia. [address], [place], [id number] , [place]. tel:[phone] [facility], [address] [place] [address], [address], [place] tel:[phone] [facility] routine fasting labs (3 mo) (chief complaint) Acute pharyngitisPrediabetesVi tamin B12 deficiencyBody mass index [BMI] 31.0-31.9, adultStreptococcal sore throat Apr-0 3-202 3 Ramirez Nakia. [address], [place], [id number] , . tel: [phone] [facility], [address] [place] [address], [facility], [place] tel:[phone] [facility] [place] b12 (chief complaint) Vitamin B12 deficiency 3 Ramirez Nakia. [address], [place], [id number] , [place]. tel: [phone] [facility], [address] [place] [address], [facility], [place] tel:[phone] [facility] [place] b12 injecttion (chief complaint) Vitamin B12 deficiency 3 Ramirez Nakia. [address], [place], [id number] , . tel: [phone] [facility], [address] [place] [address], [facility], tel:[phone] [facility] [place] f/u labs (chief complaint) Vitamin B12 deficiencyPrediabetesPur e hyperglyceridemia 3 Ramirez Nakia. [address], [place], [id number] , [place]. tel: [phone] [facility], [address] [place] [address], [facility], [place] tel:[phone] [facility] [place] Labs (chief complaint) Encounter for screening for diseases of the blood and blood-forming organs and certain disorders involving the immune mechanism 2 Ramirez Nakia. [address], [place], [id number] , [place]. tel: [phone] [place] [address], [address] [place] [address], [facility], [place] tel:[phone] [facility] [place] back pain (chief complaint) Pain in thoracic spineLow back pain, unspecified Jun-2 2 Ramirez Nakia. [address], [place], [id number] , [place]. tel:[phone] [facility], [address] [place] [address], [facility], [place] tel:[phone] [facility] [place] back pain (chief complaint)b 12 injection #6 of 6 (chief complaint) Low back pain, unspecifiedVitamin B12 deficiency 2 Ramirez Nakia. [address], [place], [id number] , [place]. tel: [phone] [facility], [address] [place] [address], [facility], [place] tel:[phone] [facility] [place] BACK PAIN (chief complaint) Low back pain, unspecifiedVitamin B12 deficiencyEncounter for immunization 2 Ramirez Nakia. [address], [place], [id number] , [place]. tel: [phone] [facility], [address] [place] [address], [facility], [place] tel:[phone] [facility] [place] B12 Injection (chief complaint) Vitamin B12 deficiency May- 2 Ramirez Nakia. [address], [place], [id number] , [place]. tel: [phone] [facility], [address] [place] [address], [facility], [place] tel:[phone] [facility] [place] vomiting, body aches (chief complaint)C ovid Testing (chief complaint) COVID-19Vitamin B12 deficiencyEncounter for screening for COVID-19 2 Ramirez Nakia. [address], [place], [id number] , [place]. tel: [phone] [facility], [address] [place] [address], [facility], [place] tel:[phone] [facility] [place] B12 Injection (chief complaint) Vitamin B12 deficiency 2 Ramirez Nakia. [address], [place], [id number] , . tel:[phone] [facility], [address] [place] [address], [facility], tel:[phone] [facility] [place] Follow up on labs (chief complaint) Chronic fatigue, unspecifiedPrediabetesVi tamin B12 deficiencyPure hyperglyceridemia 2 Ramirez Nakia. [address], [place], [id number] , [place]. tel: [phone] [facility], [address] [place] [address], [facility], tel:[phone] [facility] [place] FASTING LABS (chief complaint) Encounter for screening for diseases of the blood and blood-forming organs and certain disorders involving the immune mechanism 2 Ramirez Nakia. [address], [place], [id number] , [place]. tel: [phone] [facility], [address] [place] [address], [facility], tel:[phone] [facility] [place] Sore throat (chief complaint)S inus symptoms (acute) (chief complaint)R unny nose (chief complaint)H eadache (chief complaint) Otitis media, unspecified, bilateralAcute ethmoidal sinusitis, unspecified 2 Ramirez Nakia. [address], [place], [id number] , [place]. tel: [phone] [address], [facility], tel:[phone] [facility] [place] Medication dose changes (chief complaint) Anxiety disorder, unspecifiedGastro-esopha geal reflux disease without esophagitisTobacco abuse counselingEssential tremorBody mass index [BMI]30.0-30.9, adult 2 Ramirez Nakia. [address], [place], [id number] , . tel:[phone] [facility], [address] [place] [address], [facility], tel:[phone] [facility] Anxiety (chief complaint)f ollow up new medication for tremors (chief complaint)I rritable bowel (chief complaint) Anxiety disorder, unspecifiedChronic fatigue, unspecifiedEssential tremorGastro-esophageal reflux disease without esophagitisNicotine dependence, chewing tobacco, uncomplicatedPrediabetes Unspecified psychosis not due to a substance or known physiological conditionBody mass index [BMI]30.0-30.9, adultTobacco abuse counseling 2 Ramirez Nakia. [address], [place], [id number] , . tel:[phone] [facility], [address] [place] [address], [facility], tel:[phone] [facility] PABON Infectious gastroenteritis and colitis, unspecifiedEncounter for screening for nutritional disorderEssential tremorEncounter for screening for lipoid disordersEncounter for screening for diseases of the blood and blood-forming organs and certain disorders involving the immune mechanismAnxiety disorder, unspecifiedPrediabetesOt her long term care social worker (current) drug therapyEncounter for screening for other metabolic disordersChronic fatigue, unspecifiedNicotine dependence, chewing tobacco, uncomplicatedLow back pain, unspecifiedGastro-esopha geal reflux disease without esophagitisUnspecified psychosis not due to a substance or known physiological conditionPersons encountering health services in other specified circumstancesEncounter for screening for infectious and parasitic diseases, unspecifiedUnspecified mood [affective] disorder 2 Ramirez Nakia. [address], [place], [id number] , . tel: [phone] [facility], [address] [place] [address], [address], tel:[phone] [facility] No Information 2 Ramirez Nakia. [address] [place], [id number] , [place]. tel: [phone] [facility], [address] [place] [address], [facility], [place] tel:[phone] [facility] No Information 2 Ramirez Nakia. [address], [place], [id number] , [place]. tel: [facility], [address] [place] [address], [facility], tel:[phone] [facility] No Information 2 Ramirez Nakia. [address], [place], [id number] , [place]. tel:[phone] [facility], [address] [place] [address], [facility], [place] tel:[phone] [facility] No Information 1 Ramirez Nakia. [address], [place], [id number] , [place]. tel:[phone] [facility], [address] [place] [address], [facility], [place] tel:[phone] [facility] [place] No Information 1 Ramirez Nakia. [address], [place], [id number] , [place]. tel:[phone] [facility], [address] [place] [address], [facility], [place] tel:[phone] [facility] No Information 1 Ramirez Nakia. [address], [place], [id number] , [place]. tel:[phone] [facility], [address] [place] [address], [facility], tel:[phone] [facility] [place] No Information 1 Ramirez Nakia. [address], [place], [id number] , [place]. tel:[phone] [facility], [address] [place] [address], [facility], tel:[phone] [facility] [place] No Information 1 Ramirez Nakia. [address], [place], [id number] , [place]. tel:[phone] [facility], [address] [place] [address], [facility], tel:[phone] [facility] [place] No Information 1 Ramirez Nakia. [address], [place], [id number] , [place]. tel: [phone] [facility], [address] [place] [address], [facility], tel:[phone] [facility] [place] No Information 1 Ramirez Nakia. [address], [place], [id number] , [place]. tel: [phone] [facility], [address] [place] [address], [facility], [place] tel:[phone] [facility] [place] No Information 1 Ramirez Nakia. [address], [place], [id number] , [place]. tel: [phone] Family History Family Member Type Diagnosis Age At Onset Mother Problem alzheimer's disease Father Problem Alive and well Problem Family history of Diabetes m ellitus Mother Problem Diabetes mellitus Problem Family history of heart dise ase Problem Family history of tremors Mother Problem Mother Problem coronary arteriosclerosis Father Problem bipolar disorder Immunizations Vaccine Date Status Comments Influenza virus vaccine, trivalent (IIV3), split virus, preservative free, 0.5 mL dosage, for intramuscular use administered Source: Ne w Immunization Record Influenza Flulaval administered Source: N ew Immunization Record Influenza, injectable, quadrivalent, split virus, preservative free, 0.5 mL dosage, 3 years and older, Afluria Quad administered Source: New Immun ization Record SARS-COV-2 (COVID-19) vaccin e, mRNA, spike protein, LNP, bivalent booster, preservative free, 30 mcg/0.3 mL dose, arpan-sucrose formulation, 12 years and older ([place]) administered Source: New Imm unization Record COVID-19 mRNA (PFR) administered Source: Other Registry COVID-19 mRNA (PFR) administered Source: Other Registry Payers Payer name Insurance type Covered constitution party ID Authoriza tion(s) [place] [employer] [facility] [id number] [place] [employer] [facility] [id number] [place] [employer] [facility] [id number] [place] [employer] [facility] [id number] [place] [employer] [facility] [id number] Social History Type Description Quantity Date Captured Comments Alcohol Use Details Unknown Caffeine Use Details Unknown Tobacco Use Status Heavy cigarette smok er (20-39 cigs/day) Smoking Status Heavy tobacco smoker Sex Male Sexual Orientation Straight or heterosexual Gender Identity Male Vital Signs Date / Time: Height Weight BMI Pulse Rate Blood Pressure Temperature Respiratory Rate Body Surface Area Head Circumference Head Circ. Percentile Wt./Darnell. Percentile BMI percentile Pulse Ox Inhaled Ox 12:03 PM 73.00 in 108.862 kg (240.00 lbs) 31.6 6 kg/m eter (2) 60 /min 98.00 F 18 /min 2.37 meter(2) Chief Complaint And Reason For Visit From encounter dated '06/04/2025 10:30'. Depression Screening (chief complaint). Description: Depression screening completed 06/04/25. Pt scored 3, provider aware. -AW,CM lab collection (chief complaint). Description: Braxton is here for fasting lab collection.- obtained and tolerated procedure well. monthly b12 inj (chief complaint). Description: Braxton is due for his monthly b12 injection. Given and tolerated well. ER f/u (chief complaint). Description: Braxton is also here for ER f/u cholelithiasis on 05/19/25Michael was seen in [facility] ER, evaluated, treated and released homeHe will f/u with GI for further evaluation on 06/18/25He states he continues to have a pressure type pain in the epigastric area.H.Pylori testing w as neg in office today. Plan Of Treatment Date Type Action Status Goal Urine microalbumin. Due on due Goal Pneumococcal vac cine. Due on due Goal Hemoglobin A1C. Due on due Goal Dental exam. Due on 025 due Goal Hep B (). Due on 025 due Goal Hemoglobin (Pree pelon/HR 9 months). Due on due Goal GFR. Due on due Goal Foot exam. Due on due Goal Lipid panel. Due on 026 due Goal Taking Statin Me dication. Due on due Goal Depression scree smith. Due on due Goal ASCVD 10 year risk. Due on due Goal Dilated eye exam. Due on May due Goal Hematocrit/Hemog lobin. Due on due Goal Unhealthy drug use screening due Goal Tobacco screening. Due on due Goal HIV screen due Goal CBC. Due on due Goal Obtain Height, W eight, and BMI. Due on due Goal Drug Abuse Scree smith Test (DAST). Due on due Goal Influenza vaccine. Due on due Goal Diabetes screening. Due on due Goal Tobacco Use Cess ation Counseling. Due on due Goal Generalized Anxi ety Disorder - 7 (MEGHAN-7). Due on due Goal Hepatitis C Screening due Goal Vitamin D. Due on due Goal Drug Abuse Scree smith Test (DAST-10). Due on due Goal CMP. Due on due Goal Tobacco Use Scre ening. Due on due Goal Vitamin B12. Due on due Goal Follow up Plan f or abnormal BMI (Less than 18.5, greater than 25). Due on due Goal Tobacco cessation counseling completed Goal Lifestyle education regardin g diet completed Goal Tobacco cessation counseling completed Goal Foot exam. Due on due Goal Follow up Plan f or abnormal BMI (Less than 18.5, greater than 25). Due on due Goal Dilated eye exam. Due on Feb due Goal CMP. Due on due Goal Tobacco Use Cess ation Counseling. Due on due Goal Tobacco screening. Due on due Goal Depression scree smith. Due on due Goal Taking Statin Me dication. Due on due Goal Pneumococcal vac cine. Due on due Goal Dental exam. Due on due Goal Hep B (). Due on due Goal GFR. Due on due Goal Urine microalbumin. Due on due Goal Lipid panel. Due on due Goal Hemoglobin A1C. Due on due Goal ASCVD 10 year risk. Due on due Goal CBC. Due on due Goal Influenza vaccine. Due on due Goal Drug Abuse Scree smith Test (DAST). Due on due Goal Vitamin D. Due on due Goal Vitamin B12. Due on due Goal Generalized Anxi ety Disorder - 7 (MEGHAN-7). Due on due Goal Hepatitis C Screening due Goal Drug Abuse Scree smith Test (DAST-10). Due on due Goal Unhealthy drug use screening due Goal HIV screen due Goal Obtain Height, W eight, and BMI. Due on due Goal Tobacco Use Scre ening. Due on due Goal Diabetes screening. Due on due Goal Lifestyle education regardin g diet completed Goal Tobacco cessation counseling completed Goal Dental exam. Due on due Goal Foot exam. Due on due Goal Dilated eye exam. Due on Dec due Goal GFR. Due on due Goal ASCVD 10 year risk. Due on A due Goal Lipid panel. Due on due Goal Taking Statin Me dication. Due on due Goal Hep B (). Due on due Goal HIV screen due Goal CBC. Due on due Goal Generalized Anxi ety Disorder - 7 (MEGHAN-7). Due on due Goal Hemoglobin A1C. Due on due Goal Follow up Plan f or abnormal BMI (Less than 18.5, greater than 25). Due on due Goal Urine microalbumin. Due on A due Goal Unhealthy drug use screening due Goal Drug Abuse Scree smith Test (DAST). Due on due Goal Pneumococcal vac cine. Due on due Goal Depression scree smith. Due on due Goal Influenza vaccine. Due on due Goal Vitamin D. Due on due Goal Diabetes screening. Due on due Goal Vitamin B12. Due on due Goal CMP. Due on due Goal Obtain Height, W eight, and BMI. Due on due Goal Drug Abuse Scree smith Test (DAST-10). Due on due Goal Tobacco Use Scre ening. Due on due Goal Tobacco Use Cess ation Counseling. Due on due Goal Hepatitis C Screening due Goal Tobacco screening. Due on due Goal Drug Abuse Scree smith Test (DAST-10). Due on due Goal Drug Abuse Scree smith Test (DAST). Due on due Goal Vitamin D. Due on due Goal Hepatitis C Screening due Goal HIV screen due Goal CMP. Due on due Goal Tobacco Use Scre ening. Due on due Goal Urine microalbumin. Due on due Goal Follow up Plan f or abnormal BMI (Less than 18.5, greater than 25). Due on due Goal FOBT. Due on due Goal ASCVD 10 year risk. Due on due Goal Foot exam. Due on due Goal Dental exam. Due on due Goal Taking Statin Me dication. Due on due Goal Hemoglobin A1C. Due on due Goal GFR. Due on due Goal Hep B (). Due on due Goal Dilated eye exam. Due on Oct due Goal Depression scree smith. Due on due Goal Influenza vaccine. Due on due Goal Diabetes screening. Due on due Goal Generalized Anxi ety Disorder - 7 (MEGHAN-7). Due on due Goal Tobacco Use Cess ation Counseling. Due on due Goal Obtain Height, W eight, and BMI. Due on due Goal Colonoscopy. Due on due Goal Lipid panel. Due on due Goal Vitamin B12. Due on due Goal Pneumococcal vac cine. Due on due Goal CBC. Due on due Goal Unhealthy drug use screening due Goal Foot exam. Due on due Goal GFR. Due on due Goal Dilated eye exam. Due on Sep due Goal ASCVD 10 year risk. Due on due Goal Taking Statin Me dication. Due on due Goal Dental exam. Due on due Goal Tobacco Use Cess ation Counseling. Due on due Goal Follow up Plan f or abnormal BMI (Less than 18.5, greater than 25). Due on due Goal Diabetes screening. Due on due Goal Obtain Height, W eight, and BMI. Due on due Goal Unhealthy drug use screening due Goal Drug Abuse Scree smith Test (DAST). Due on due Goal CMP. Due on due Goal Generalized Anxi ety Disorder - 7 (MEGHAN-7). Due on due Goal Hemoglobin A1C. Due on due Goal CBC. Due on due Goal Vitamin D. Due on due Goal Hep B (). Due on due Goal Drug Abuse Scree smith Test (DAST-10). Due on due Goal Vitamin B12. Due on due Goal Hepatitis C Screening due Goal Urine microalbumin. Due on due Goal Tobacco Use Scre ening. Due on due Goal HIV screen due Goal Lipid panel. Due on 029 due Goal Depression scree smith. Due on due Goal Pneumococcal vac cine. Due on due Goal Influenza vaccine. Due on due Goal Lifestyle education regardin g diet completed Goal Dilated eye exam. Due on Aug due Goal GFR. Due on due Goal Hemoglobin A1C. Due on due Goal Hep B (). Due on 024 due Goal Urine microalbumin. Due on due Goal Unhealthy drug use screening due Goal Tobacco Use Scre ening. Due on due Goal Vitamin D. Due on due Goal Generalized Anxi ety Disorder - 7 (MEGHAN-7). Due on due Goal Drug Abuse Scree smith Test (DAST). Due on due Goal Foot exam. Due on due Goal Taking Statin Me dication. Due on due Goal ASCVD 10 year risk. Due on due Goal Dental exam. Due on due Goal Hepatitis C Screening due Goal Vitamin B12. Due on due Goal HIV screen due Goal Tobacco Use Cess ation Counseling. Due on due Goal Depression scree smith. Due on due Goal CMP. Due on due Goal Follow up Plan f or abnormal BMI (Less than 18.5, greater than 25). Due on due Goal CBC. Due on due Goal Influenza vaccine. Due on due Goal Lipid panel. Due on 029 due Goal Diabetes screening. Due on due Goal Pneumococcal vac cine. Due on due Goal Obtain Height, W eight, and BMI. Due on due Goal Drug Abuse Scree smith Test (DAST-10). Due on due Goal Dental exam. Due on due Goal Urine microalbumin. Due on due Goal Foot exam. Due on due Goal Taking Statin Me dication. Due on due Goal ASCVD 10 year risk. Due on due Goal GFR. Due on due Goal Dilated eye exam. Due on May due Goal Hemoglobin A1C. Due on due Goal Hep B (1st). Due on due Goal Generalized Anxi ety Disorder - 7 (MEGHAN-7). Due on due Goal Vitamin D. Due on due Goal Tobacco Use Scre ening. Due on due Goal Drug Abuse Scree smith Test (DAST). Due on due Goal Follow up Plan f or abnormal BMI (Less than 18.5, greater than 25). Due on due Goal Influenza vaccine. Due on due Goal CMP. Due on due Goal Hepatitis C Screening due Goal Vitamin B12. Due on 025 due Goal Lipid panel. Due on 029 due Goal Diabetes screening. Due on due Goal Tobacco Use Cess ation Counseling. Due on due Goal Depression scree smith. Due on due Goal Unhealthy drug use screening due Goal HIV screen due Goal CBC. Due on due Goal Obtain Height, W eight, and BMI. Due on due Goal Drug Abuse Scree smith Test (DAST-10). Due on due Goal Pneumococcal vac cine. Due on due Goal Lifestyle education regardin g diet completed Goal Tobacco cessation counseling completed Goal Hepatitis C Screening due Goal Drug Abuse Scree smith Test (DAST-10). Due on due Goal Influenza vaccine. Due on due Goal Tobacco Use Cess ation Counseling. Due on due Goal CMP. Due on due Goal Generalized Anxi ety Disorder - 7 (MEGHAN-7). Due on due Goal Vitamin D. Due on due Goal Diabetes screening. Due on due Goal Drug Abuse Scree smith Test (DAST). Due on due Goal Follow up Plan f or abnormal BMI (Less than 18.5, greater than 25). Due on due Goal HIV screen due Goal Unhealthy drug use screening due Goal Lipid panel. Due on 029 due Goal Depression scree smith. Due on due Goal Tobacco Use Scre ening. Due on due Goal Obtain Height, W eight, and BMI. Due on due Goal CBC. Due on due Goal Vitamin B12. Due on 025 due Goal Follow up Plan f or abnormal BMI (Less than 18.5, greater than 25). Due on due Goal Drug Abuse Scree smith Test (DAST-10). Due on due Goal HIV screen due Goal Influenza vaccine. Due on due Goal Obtain Height, W eight, and BMI. Due on due Goal Depression scree smith. Due on due Goal Diabetes screening. Due on due Goal Vitamin D. Due on due Goal Generalized Anxi ety Disorder - 7 (MEGHAN-7). Due on due Goal Drug Abuse Scree smith Test (DAST). Due on due Goal Unhealthy drug use screening due Goal CMP. Due on due Goal Lipid panel. Due on 029 due Goal Hepatitis C Screening due Goal Vitamin B12. Due on 025 due Goal Tobacco Use Scre ening. Due on due Goal CBC. Due on due Goal Tobacco Use Cess ation Counseling. Due on due Goal Tobacco Use Scre ening. Due on due Goal Drug Abuse Scree smith Test (DAST-10). Due on due Goal HIV screen due Goal Vitamin D. Due on due Goal Influenza vaccine. Due on due Goal CMP. Due on due Goal Unhealthy drug use screening due Goal Tobacco Use Cess ation Counseling. Due on due Goal Obtain Height, W eight, and BMI. Due on due Goal Depression scree smith. Due on due Goal Diabetes screening. Due on due Goal Vitamin B12. Due on 025 due Goal Lipid panel. Due on 029 due Goal Generalized Anxi ety Disorder - 7 (MEGHAN-7). Due on due Goal Follow up Plan f or abnormal BMI (Less than 18.5, greater than 25). Due on due Goal CBC. Due on due Goal Drug Abuse Scree smith Test (DAST). Due on due Goal Hepatitis C Screening due Goal Tobacco Use Cess ation Counseling. Due on due Goal Influenza vaccine. Due on due Goal Tobacco Use Scre ening. Due on due Goal Vitamin D. Due on due Goal HIV screen due Goal Drug Abuse Scree smith Test (DAST). Due on due Goal Hepatitis C Screening due Goal Vitamin B12. Due on due Goal Generalized Anxi ety Disorder - 7 (MEGHAN-7). Due on due Goal Diabetes screening. Due on due Goal Depression scree smith. Due on due Goal Obtain Height, W eight, and BMI. Due on due Goal Unhealthy drug use screening due Goal Follow up Plan f or abnormal BMI (Less than 18.5, greater than 25). Due on due Goal Drug Abuse Scree smith Test (DAST-10). Due on due Goal CMP. Due on due Goal CBC. Due on due Goal Lipid panel. Due on due Goal Lifestyle education regardin g diet completed Goal Tobacco cessation counseling completed Goal Hepatitis C Screening due Goal Depression scree smith. Due on due Goal Diabetes screening. Due on due Goal HIV screen due Goal Drug Abuse Scree smith Test (DAST). Due on due Goal CMP. Due on due Goal Unhealthy drug use screening due Goal Generalized Anxi ety Disorder - 7 (MEGHAN-7). Due on due Goal Lipid panel. Due on due Goal Vitamin D. Due on due Goal CBC. Due on due Goal Influenza vaccine. Due on due Goal Vitamin B12. Due on 025 due Goal Tobacco Use Scre ening. Due on due Goal Drug Abuse Scree smith Test (DAST-10). Due on due Goal Follow up Plan f or abnormal BMI (Less than 18.5, greater than 25). Due on due Goal Obtain Height, W eight, and BMI. Due on due Goal Tobacco Use Cess ation Counseling. Due on due Goal Hepatitis C Screening due Goal Unhealthy drug use screening due Goal Tobacco Use Scre ening. Due on due Goal CMP. Due on due Goal Generalized Anxi ety Disorder - 7 (MEGHAN-7). Due on due Goal Lipid panel. Due on 029 due Goal Drug Abuse Scree smith Test (DAST-10). Due on due Goal Vitamin D. Due on due Goal Diabetes screening. Due on F due Goal Drug Abuse Scree smith Test (DAST). Due on due Goal Depression scree smith. Due on due Goal Influenza vaccine. Due on due Goal Tobacco Use Cess ation Counseling. Due on due Goal CBC. Due on due Goal HIV screen due Goal Vitamin B12. Due on 025 due Goal Obtain Height, W eight, and BMI. Due on due Goal Follow up Plan f or abnormal BMI (Less than 18.5, greater than 25). Due on due Goal Influenza vaccine. Due on due Goal HIV screen due Goal Depression scree smith. Due on due Goal Hepatitis C Screening due Goal Tobacco Use Scre ening. Due on due Goal CMP. Due on due Goal Unhealthy drug use screening due Goal Vitamin D. Due on due Goal Generalized Anxi ety Disorder - 7 (MEGHAN-7). Due on due Goal Lipid panel. Due on 029 due Goal CBC. Due on due Goal Follow up Plan f or abnormal BMI (Less than 18.5, greater than 25). Due on due Goal Tobacco Use Cess ation Counseling. Due on due Goal Obtain Height, W eight, and BMI. Due on due Goal Drug Abuse Scree smith Test (DAST). Due on due Goal Drug Abuse Scree smith Test (DAST-10). Due on due Goal Diabetes screening. Due on due Goal Vitamin B12. Due on 025 due Goal Lifestyle education regardin g diet completed Goal Follow up Plan f or abnormal BMI (Less than 18.5, greater than 25). Due on due Goal Vitamin B12. Due on due Goal Generalized Anxi ety Disorder - 7 (MEGHAN-7). Due on due Goal Diabetes screening. Due on due Goal Drug Abuse Scree smith Test (DAST). Due on due Goal Drug Abuse Scree smith Test (DAST-10). Due on due Goal HIV screen due Goal Depression scree smith. Due on due Goal CBC. Due on due Goal Vitamin D. Due on due Goal Hepatitis C Screening due Goal Unhealthy drug use screening due Goal Tobacco Use Scre ening. Due on due Goal CMP. Due on due Goal Lipid panel. Due on 029 due Goal Obtain Height, W eight, and BMI. Due on due Goal Influenza vaccine. Due on due Goal Tobacco cessation counseling completed Goal Lifestyle education regardin g diet completed Goal HIV screen due Goal Generalized Anxi ety Disorder - 7 (MEGHAN-7). Due on due Goal Vitamin D. Due on due Goal Lipid panel. Due on 023 due Goal Influenza vaccine. Due on due Goal Drug Abuse Scree smith Test (DAST). Due on due Goal Vitamin B12. Due on 023 due Goal CMP. Due on due Goal Tobacco Use Cess ation Counseling. Due on due Goal Follow up Plan f or abnormal BMI (Less than 18.5, greater than 25). Due on due Goal Tobacco Use Scre ening. Due on due Goal Hepatitis C Scre ening. Due on due Goal CBC. Due on due Goal Unhealthy drug use screening due Goal Diabetes screening. Due on N due Goal Depression scree smith. Due on due Goal Drug Abuse Scree smith Test (DAST-10). Due on due Goal Obtain Height, W eight, and BMI. Due on due Goal Follow up Plan f or abnormal BMI (Less than 18.5, greater than 25). Due on due Goal Lipid panel. Due on due Goal Depression scree smith. Due on due Goal Drug Abuse Scree smith Test (DAST-10). Due on due Goal CMP. Due on due Goal Tobacco Use Scre ening. Due on due Goal CBC. Due on due Goal Vitamin D. Due on due Goal Drug Abuse Scree smith Test (DAST). Due on due Goal Influenza vaccine. Due on due Goal Generalized Anxi ety Disorder - 7 (MEGHAN-7). Due on due Goal Unhealthy drug use screening due Goal Hepatitis C Scre ening. Due on due Goal Obtain Height, W eight, and BMI. Due on due Goal Diabetes screening. Due on O due Goal Tobacco Use Cess ation Counseling. Due on due Goal Vitamin B12. Due on due Goal HIV screen due Goal Unhealthy drug use screening due Goal Depression scree smith. Due on due Goal Drug Abuse Scree smith Test (DAST-10). Due on due Goal Drug Abuse Scree smith Test (DAST). Due on due Goal Vitamin B12. Due on due Goal Obtain Height, W eight, and BMI. Due on due Goal Lipid panel. Due on due Goal Diabetes screening. Due on due Goal CBC. Due on due Goal Generalized Anxi ety Disorder - 7 (MEGHAN-7). Due on due Goal Vitamin D. Due on due Goal HIV screen due Goal Tobacco Use Cess ation Counseling. Due on due Goal Influenza vaccine. Due on due Goal Tobacco Use Scre ening. Due on due Goal Hepatitis C Scre ening. Due on due Goal CMP. Due on due Goal Follow up Plan f or abnormal BMI (Less than 18.5, greater than 25). Due on due Goal Hepatitis C Scre ening. Due on due Goal Lipid panel. Due on due Goal Drug Abuse Scree smith Test (DAST). Due on due Goal Diabetes screening. Due on A due Goal CMP. Due on due Goal Drug Abuse Scree smith Test (DAST-10). Due on due Goal Tobacco Use Scre ening. Due on due Goal Obtain Height, W eight, and BMI. Due on due Goal Follow up Plan f or abnormal BMI (Less than 18.5, greater than 25). Due on due Goal Vitamin D. Due on due Goal Vitamin B12. Due on due Goal Unhealthy drug use screening due Goal Depression scree smith. Due on due Goal HIV screen due Goal CBC. Due on due Goal Influenza vaccine. Due on due Goal Tobacco Use Cess ation Counseling. Due on due Goal Generalized Anxi ety Disorder - 7 (MEGHAN-7). Due on due Goal CMP. Due on due Goal Tobacco Use Cess ation Counseling. Due on due Goal Drug Abuse Scree smith Test (DAST). Due on due Goal Drug Abuse Scree smith Test (DAST-10). Due on due Goal Generalized Anxi ety Disorder - 7 (MEGHAN-7). Due on due Goal Depression scree smith. Due on due Goal Lipid panel. Due on due Goal CBC. Due on due Goal Hepatitis C Scre ening. Due on due Goal Obtain Height, W eight, and BMI. Due on due Goal Influenza vaccine. Due on due Goal Follow up Plan f or abnormal BMI (Less than 18.5, greater than 25). Due on due Goal Unhealthy drug use screening due Goal Vitamin D. Due on due Goal Tobacco Use Scre ening. Due on due Goal Diabetes screening. Due on due Goal HIV screen due Goal Vitamin B12. Due on due Goal Tobacco cessation counseling completed Goal Lifestyle education regardin g diet completed Goal Influenza vaccine. Due on due Goal HIV screen due Goal Vitamin B12. Due on due Goal Drug Abuse Scree smith Test (DAST). Due on due Goal Follow up Plan f or abnormal BMI (Less than 18.5, greater than 25). Due on due Goal Drug Abuse Scree smith Test (DAST-10). Due on due Goal CMP. Due on due Goal Tobacco Use Scre ening. Due on due Goal Unhealthy drug use screening due Goal Lipid panel. Due on due Goal Hepatitis C Scre ening. Due on due Goal Obtain Height, W eight, and BMI. Due on due Goal Tobacco Use Cess ation Counseling. Due on due Goal Generalized Anxi ety Disorder - 7 (MEGHAN-7). Due on due Goal CBC. Due on due Goal Depression scree smith. Due on due Goal Diabetes screening. Due on due Goal Vitamin D. Due on due Goal Unhealthy drug use screening due Goal Vitamin B12. Due on due Goal Follow up Plan f or abnormal BMI (Less than 18.5, greater than 25). Due on due Goal HIV screen due Goal Influenza vaccine. Due on due Goal Drug Abuse Scree smith Test (DAST-10). Due on due Goal Drug Abuse Scree smith Test (DAST). Due on due Goal Tobacco Use Scre ening. Due on due Goal CMP. Due on due Goal Lipid panel. Due on 023 due Goal CBC. Due on due Goal Diabetes screening. Due on due Goal Obtain Height, W eight, and BMI. Due on due Goal Hepatitis C Scre ening. Due on due Goal Tobacco Use Cess ation Counseling. Due on due Goal Depression scree smith. Due on due Goal Generalized Anxi ety Disorder - 7 (MEGHAN-7). Due on due Goal Vitamin D. Due on due Goal Unhealthy drug use screening due Goal Influenza vaccine. Due on Oc due Goal CMP. Due on due Goal HIV screen due Goal Diabetes screening. Due on M due Goal Vitamin B12. Due on due Goal CBC. Due on due Goal Tobacco Use Cess ation Counseling. Due on due Goal Drug Abuse Scree smith Test (DAST). Due on due Goal Obtain Height, W eight, and BMI. Due on due Goal Generalized Anxi ety Disorder - 7 (MEGHAN-7). Due on due Goal Follow up Plan f or abnormal BMI (Less than 18.5, greater than 25). Due on due Goal Drug Abuse Scree smith Test (DAST-10). Due on due Goal Lipid panel. Due on due Goal Depression scree smith. Due on due Goal Tobacco Use Scre ening. Due on due Goal Hepatitis C Scre ening. Due on due Goal Vitamin D. Due on due Goal Tobacco Use Cess ation Counseling. Due on due Goal Hepatitis C Scre ening. Due on due Goal Lipid panel. Due on due Goal Unhealthy drug u se screening. Due on due Goal HIV screen due Goal Diabetes screening. Due on A due Goal Drug Abuse Scree smith Test (DAST). Due on due Goal CMP. Due on due Goal Influenza vaccine. Due on Oc due Goal Vitamin B12. Due on due Goal Drug Abuse Scree smith Test (DAST-10). Due on due Goal Follow up Plan f or abnormal BMI (Less than 18.5, greater than 25). Due on due Goal CBC. Due on due Goal Vitamin D. Due on due Goal Depression scree smith. Due on due Goal Tobacco Use Scre ening. Due on due Goal Generalized Anxi ety Disorder - 7 (MEGHAN-7). Due on due Goal Obtain Height, W eight, and BMI. Due on due Goal Lifestyle education regardin g diet completed Goal Tobacco cessation counseling completed Goal CMP. Due on due Goal Unhealthy drug u se screening. Due on due Goal Lipid panel. Due on due Goal Diabetes screening. Due on A due Goal HIV screen due Goal Hepatitis C Scre ening. Due on due Goal Tobacco Use Cess ation Counseling. Due on due Goal Influenza vaccine. Due on Oc due Goal CBC. Due on due Goal Vitamin B12. Due on due Goal Drug Abuse Scree smith Test (DAST-10). Due on due Goal Tobacco Use Scre ening. Due on due Goal Follow up Plan f or abnormal BMI (Less than 18.5, greater than 25). Due on due Goal Depression scree smith. Due on due Goal Obtain Height, W eight, and BMI. Due on due Goal Generalized Anxi ety Disorder - 7 (MEGHAN-7). Due on due Goal Vitamin D. Due on due Goal Drug Abuse Scree smith Test (DAST). Due on due Goal Lifestyle education regardin g diet completed Goal Generalized Anxi ety Disorder - 7 (MEGHAN-7). Due on due Goal HIV screen due Goal Drug Abuse Scree smith Test (DAST). Due on due Goal Vitamin D. Due on due Goal Depression scree smith. Due on due Goal CBC. Due on due Goal Lipid panel. Due on 023 due Goal Hepatitis C Scre ening. Due on due Goal Follow up Plan f or abnormal BMI (Less than 18.5, greater than 25). Due on due Goal Tobacco Use Scre ening. Due on due Goal CMP. Due on due Goal Vitamin B12. Due on due Goal Tobacco Use Cess ation Counseling. Due on due Goal Obtain Height, W eight, and BMI. Due on due Goal Drug Abuse Scree smith Test (DAST-10). Due on due Goal Unhealthy drug u se screening. Due on due Goal Diabetes screening. Due on M due Goal Influenza vaccine. Due on Oc due Goal Unhealthy drug u se screening. Due on due Goal Follow up Plan f or abnormal BMI (Less than 18.5, greater than 25). Due on due Goal Depression scree smith. Due on due Goal Hepatitis C Scre ening. Due on due Goal Influenza vaccine. Due on Oc due Goal Drug Abuse Scree smith Test (DAST). Due on due Goal Generalized Anxi ety Disorder - 7 (MEGHAN-7). Due on due Goal HIV screen due Goal Drug Abuse Scree smith Test (DAST-10). Due on due Goal Lipid panel. Due on 023 due Goal Vitamin B12. Due on 023 due Goal CBC. Due on due Goal Diabetes screening. Due on F due Goal Tobacco Use Scre ening. Due on due Goal Obtain Height, W eight, and BMI. Due on due Goal CMP. Due on due Goal Vitamin D. Due on due Goal Tobacco Use Cess ation Counseling. Due on due Goal Vitamin D. Due on due Goal Tobacco Use Scre ening. Due on due Goal Follow up Plan f or abnormal BMI (Less than 18.5, greater than 25). Due on due Goal Tobacco Use Cess ation Counseling. Due on due Goal Vitamin B12. Due on due Goal Obtain Height, W eight, and BMI. Due on due Goal Hepatitis C Scre ening. Due on due Goal Generalized Anxi ety Disorder - 7 (MEGHAN-7). Due on due Goal Depression scree smith. Due on due Goal Influenza vaccine. Due on due Goal Lipid panel. Due on due Goal HIV screen due Goal CMP. Due on due Goal Drug Abuse Scree smith Test (DAST-10). Due on due Goal CBC. Due on due Goal Diabetes screening. Due on due Goal Drug Abuse Scree smith Test (DAST). Due on due Goal Tobacco cessation counseling completed Goal Tobacco Use Cess ation Counseling. Due on due Goal Vitamin B12. Due on due Goal Obtain Height, W eight, and BMI. Due on due Goal Hepatitis C Scre ening. Due on due Goal Generalized Anxi ety Disorder - 7 (MEGHAN-7). Due on due Goal Influenza vaccine. Due on due Goal Drug Abuse Scree smith Test (DAST-10). Due on due Goal CMP. Due on due Goal Diabetes screening. Due on due Goal Drug Abuse Scree smith Test (DAST). Due on due Goal Lipid panel. Due on due Goal HIV screen. Due on due Goal Follow up Plan f or abnormal BMI (Less than 18.5, greater than 25). Due on due Goal Vitamin D. Due on due Goal Depression scree smith. Due on due Goal Tobacco Use Scre ening. Due on due Goal CBC. Due on due Goal CMP. Due on due Goal Tobacco Use Cess ation Counseling. Due on due Goal Generalized Anxi ety Disorder - 7 (MEGHAN-7). Due on due Goal Vitamin B12. Due on due Goal Follow up Plan f or abnormal BMI (Less than 18.5, greater than 25). Due on due Goal Tobacco Use Scre ening. Due on due Goal Vitamin D. Due on due Goal Obtain Height, W eight, and BMI. Due on due Goal HIV screen. Due on due Goal Drug Abuse Scree smith Test (DAST). Due on due Goal Influenza vaccine. Due on Oc due Goal Hepatitis C Scre ening. Due on due Goal Lipid panel. Due on due Goal Diabetes screening. Due on O due Goal CBC. Due on due Goal Drug Abuse Scree smith Test (DAST-10). Due on due Goal Depression scree smith. Due on due Goal CBC. Due on due Goal Depression scree smith. Due on due Goal Tobacco Use Scre ening. Due on due Goal Vitamin D. Due on due Goal Drug Abuse Scree smith Test (DAST-10). Due on due Goal Vitamin B12. Due on due Goal Obtain Height, W eight, and BMI. Due on due Goal Hepatitis C Scre ening. Due on due Goal Generalized Anxi ety Disorder - 7 (MEGHAN-7). Due on due Goal Tobacco Use Cess ation Counseling. Due on due Goal Follow up Plan f or abnormal BMI (Less than 18.5, greater than 25). Due on due Goal Drug Abuse Scree smith Test (DAST). Due on due Goal Lipid panel. Due on due Goal Diabetes screening. Due on O due Goal Influenza vaccine. Due on Oc due Goal CMP. Due on due Goal HIV screen. Due on due Goal Follow up Plan f or abnormal BMI (Less than 18.5, greater than 25). Due on due Goal Diabetes screening. Due on O due Goal Hepatitis C Scre ening. Due on due Goal Influenza vaccine. Due on Oc due Goal Drug Abuse Scree smith Test (DAST). Due on due Goal Tobacco Use Cess ation Counseling. Due on due Goal Vitamin B12. Due on due Goal Vitamin D. Due on due Goal Drug Abuse Scree smith Test (DAST-10). Due on due Goal Depression scree smith. Due on due Goal Tobacco Use Scre ening. Due on due Goal Obtain Height, W eight, and BMI. Due on due Goal CBC. Due on due Goal CMP. Due on due Goal Generalized Anxi ety Disorder - 7 (MEGHAN-7). Due on due Goal Lipid panel. Due on due Goal HIV screen. Due on due Goal Diabetes screening. Due on due Goal Lipid panel. Due on due Goal CMP. Due on due Goal Hepatitis C Scre ening. Due on due Goal Drug Abuse Scree smith Test (DAST-10). Due on due Goal Vitamin B12. Due on due Goal Generalized Anxi ety Disorder - 7 (MEGHAN-7). Due on due Goal Tobacco Use Scre ening. Due on due Goal Vitamin D. Due on due Goal Depression scree smith. Due on due Goal CBC. Due on due Goal Obtain Height, W eight, and BMI. Due on due Goal Influenza vaccine. Due on due Goal Follow up Plan f or abnormal BMI (Less than 18.5, greater than 25). Due on due Goal Drug Abuse Scree smith Test (DAST). Due on due Goal Tobacco Use Cess ation Counseling. Due on due Goal HIV screen. Due on due Goal Drug Abuse Scree smith Test (DAST). Due on due Goal Generalized Anxi ety Disorder - 7 (MEGHAN-7). Due on due Goal HIV screen. Due on due Goal Tobacco Use Scre ening. Due on due Goal Lipid panel. Due on due Goal Hepatitis C Scre ening. Due on due Goal CMP. Due on due Goal Diabetes screening. Due on S due Goal CBC. Due on due Goal Vitamin D. Due on due Goal Drug Abuse Scree smith Test (DAST-10). Due on due Goal Obtain Height, W eight, and BMI. Due on due Goal Tobacco Use Cess ation Counseling. Due on due Goal Influenza vaccine. Due on Oc due Goal Depression scree smith. Due on due Goal Vitamin B12. Due on due Goal Follow up Plan f or abnormal BMI (Less than 18.5, greater than 25). Due on due Goal Generalized Anxi ety Disorder - 7 (MEGHAN-7). Due on due Goal Drug Abuse Scree smith Test (DAST). Due on due Goal HIV screen. Due on due Goal Influenza vaccine. Due on due Goal Lipid panel. Due on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 Encouraged avoidance of tobacco products. Related to Pure hyperglyceridemia Giving encouragement to exercise Related to Body mass index [BMI] 32.0-32.9, adult Lifestyle education regarding di et Related to Body mass index [BMI] 32.0-32.9, adult Keep feet clean and dryTake terbinafine dailyDM scott t exam today Related to Tinea pedis Do not take Iron wit h other medications. Take on an empty stomach if possible, and two hours prior to any other foods or medications. Do not drink milk or take tums within two hours of your iron. Increase water intake. Take any medications prescribed as directed. May use OTC medications prn for symptom relief of constipation. Iron can make you stool appear black, like blood. Follow a nutrient dense diet to include high fiber. Notify the provider of any signs of active bleeding (easy bruising, hematemesis, hematuria, melena, bright red blood per rectum), or new symptoms, such as: increased fatigue, dyspnea, chest pain, weakness, dizziness, or palpitations. Verbalized an understanding of all. Related to Iron deficiency It is recommended to stop smoking/vaping to increase overall health and decrease risk of cardiovascular disease. If you wish to stop smoking/vaping, there is a free online Bonnie from smoking course offered through our local health department. You may call [phone] for more information.Use nicotine patches as instructed.RTC 1 month for f/u Related to Nicotine dependence, chewing tobacco, uncomplicated B-12 injection given in office today. Eat foods rich in B-12. Additional oral B12 replacement if indicated. Related to Vitamin B12 deficiency Low fat, low cholest sallie diet. Avoid fatty, fried, and greasy foods. Physical activity as tolerated. Counseled on risks of associated comorbidities, such as heart disease and stroke. Encouraged avoidance of tobacco products. Related to Hyperlipidemia Patient educated on the importance of maintaining glycemic control. Counseled on diet, exercise and other lifestyle factors that can impact glucose control. Monitor blood glucose and keep a log as instructed by checking fasting glucose in the AM and non fasting before bedtime with any additional checks as instructed. Patient instructed to bring glucose log to all scheduled appointments. Instructed on the importance of taking all medications as prescribed. Patient aware of the importance of diabetic eye exams, dental check ups, foot exams and diabetic foot care. Patient verbalized understanding. Related to Type 2 diabetes mellitus without complications Giving encouragement to exercise Related to Body mass index [BMI] 31.0-31.9, adult Lifestyle education regarding di et Related to Body mass index [BMI] 31.0-31.9, adult It is recommended to stop smoking/vaping to increase overall health and decrease risk of cardiovascular disease. If you wish to stop smoking/vaping, there is a free online Bonnie from smoking course offered through our [facility] department. You may call [phone] for more information. Related to Nicotine dependence, chewing tobacco, uncomplicated Physical activity as tolerated. Try to engage in some form of moderate physical activity for 30 minutes most days of the week. May modify activity as needed to reduce discomfort. Try to achieve/maintain a healthy body weight to reduce strain on musculoskeletal system. Verbalizes an understanding. Related to Body mass index [BMI] 31.0-31.9, adult Keep area clean and dryMay use hyrdrocoritizone to area if needed for itchingRTC if new symptoms or rash develops Related to Insect bite (nonvenomous) of left upper arm, sequela B-12 injection given in office today. Eat foods rich in B-12. Additional oral B12 replacement if indicated. Related to Vitamin B12 deficiency Patient instructed o n appropriate use of medications prescribed for back pain. Discussed conservative measures such as heat, ice, gentle strength stretching, and core muscle strengthening. Avoid heavy lifting, pulling, or tugging. Contact the clinic if any worsening or new symptoms related to back pain occur. Related to Vertebrogenic low back pain Giving encouragement to exercise Related to Body mass index [BMI] 31.0-31.9, adult Lifestyle education regarding di et Related to Body mass index [BMI] 31.0-31.9, adult Patient educated on the importance of improved glycemic control. Counseled on diet, exercise and other lifestyle modifications. Instructed on the importance of taking all medications as prescribed. Patient aware of the importance of diabetic eye exams, dental check ups, foot exams and diabetic foot care. Patient verbalized understanding. Related to Prediabetes It is recommended to stop smoking/vaping to increase overall health and decrease risk of cardiovascular disease. If you wish to stop smoking/vaping, there is a free online Bonnie from smoking course offered through our local health department. You may call [phone] for more information.Use nicotine patches as instructed.RTC 1 month for f/u Related to Nicotine dependence, chewing tobacco, uncomplicated Physical activity as tolerated. Try to engage in some form of moderate physical activity for 30 minutes most days of the week. May modify activity as needed to reduce discomfort. Try to achieve/maintain a healthy body weight to reduce strain on musculoskeletal system. Verbalizes an understanding. Related to Body mass index [BMI] 31.0-31.9, adult B-12 injection given in office today. Eat foods rich in B-12. Additional oral B12 replacement if indicated. Related to Vitamin B12 deficiency Dietary Instructions for a healthy weight: BMI should be between the range of 18.5-24.9 for an adult; and Caloric intake should be around 0308-1905 for a female, and 7518-0236 for an adult male. Fiber intake should be about 14 grams for 1000 calories per day. That is about 20-30 grams daily. Good sources of fiber are oatmeal, fortified grains, and green leafy vegetables, apples. You can also use Carbohydrate counting to maintain a healthy weight. One serving is equal to 15 grams (1 piece of bread, small fruit, or 1 cup of milk). Men should have 45-75, Women about 30-65 per meal, and snacks are recommend to be 13-30 grams each. [employer] is a good source for meal planning and dietary education. You may also refer to the [place] [employer] website for further low sodium, health heart diet information. Mediterainian diet would be a suitable diet for your current health conditions. Low fat, low cholesterol diet. Avoid fatty, fried, and greasy foods. Physical activity as tolerated. Counseled on risks of associated comorbidities, such as heart disease and stroke. Encouraged avoidance of tobacco products. Related to Pure hyperglyceridemia Giving encouragement to exercise Related to Body mass index [BMI] 31.0-31.9, adult Lifestyle education regarding di et Related to Body mass index [BMI] 31.0-31.9, adult Physical activity as tolerated. Try to engage in some form of moderate physical activity for 30 minutes most days of the week. May modify activity as needed to reduce discomfort. Try to achieve/maintain a healthy body weight to reduce strain on musculoskeletal system. Verbalizes an understanding. Related to Body mass index [BMI] 31.0-31.9, adult Patient educated on the importance of maintaining glycemic control. Counseled on diet, exercise and other lifestyle factors that can impact glucose control. Instructed on the importance of taking all medications as prescribed. Patient aware of the importance of diabetic eye exams, dental check ups, foot exams and diabetic foot care. Patient verbalized understanding. Related to Prediabetes Take medications as prescribed. Get plenty of fluids. Activity as tolerated. Return to the clinic, or go to ER for any worsening wheeze, dyspnea at rest, cyanosis, severe shortness of breath, high fever, purulent or bloody sputum, or any other concerning symptoms. Verbalized an understanding of all. Related to Bronchitis B-12 injection given in office today. Eat foods rich in B-12. Additional oral B12 replacement if indicated. Related to Vitamin B12 deficiency Giving encouragement to exercise Related to Body mass index [BMI] 31.0-31.9, adult Lifestyle education regarding di et Related to Body mass index [BMI] 31.0-31.9, adult Take rest. Drink ple nty of fluids. Uses saline sinus rinses. Use prescription and/or OTC medications for symptom relief as instructed. RTC for worsening URI symptoms. If develops high and/or persistent fever, chills, shortness of breath, severe cough, will need urgent evaluation. Verbalizes an understanding. Related to Upper respiratory infection Physical activity as tolerated. Try to engage in some form of moderate physical activity for 30 minutes most days of the week. May modify activity as needed to reduce discomfort. Try to achieve/maintain a healthy body weight to reduce strain on musculoskeletal system. Verbalizes an understanding. Related to Body mass index [BMI] 30.0-30.9, adult Patient educated on the importance of maintaining glycemic control. Counseled on diet, exercise and other lifestyle factors that can impact glucose control. . Patient aware of the importance of diabetic eye exams, dental check ups, foot exams and diabetic foot care. Patient verbalized understanding. Related to Prediabetes Patient instructed o n appropriate use of medications prescribed for back pain. Discussed conservative measures such as heat, ice, gentle strength stretching, and core muscle strengthening. Avoid heavy lifting, pulling, or tugging. Contact the clinic if any worsening or new symptoms related to back pain occur. Related to Low back pain, unspecified Low fat, low cholest sallie diet. Avoid fatty, fried, and greasy foods. Physical activity as tolerated. Counseled on risks of associated comorbidities, such as heart disease and stroke. Encouraged avoidance of tobacco products. Related to Hyperlipidemia It is recommended to stop smoking/vaping to increase overall health and decrease risk of cardiovascular disease. If you wish to stop smoking/vaping, there is a free online Bonnie from smoking course offered through our [facility] department. You may call [phone] for more information. Related to Tobacco abuse counseling B-12 injection given in office today. Eat foods rich in B-12. Additional oral B12 replacement if indicated. Related to Vitamin B12 deficiency Giving encouragement to exercise Related to Body mass index [BMI] 30.0-30.9, adult Lifestyle education regarding di et Related to Body mass index [BMI] 30.0-30.9, adult It is recommended to stop smoking to increase overall health and decrease risk of cardiovascular disease. If you wish to stop smoking, there is a free online Bonnie from smoking course offered through our [facility]. You may call [phone] for more information. Related to Tobacco abuse counseling Physical activity as tolerated. Try to engage in some form of moderate physical activity for 30 minutes most days of the week. May modify activity as needed to reduce discomfort. Try to achieve/maintain a healthy body weight to reduce strain on musculoskeletal system. Verbalizes an understanding. Related to Body mass index [BMI] 31.0-31.9, adult Low fat, low cholest sallie diet. Avoid fatty, fried, and greasy foods. Physical activity as tolerated. Counseled on risks of associated comorbidities, such as heart disease and stroke. Encouraged avoidance of tobacco products. Related to Pure hyperglyceridemia Patient educated on the importance of maintaining glycemic control. Counseled on diet, exercise and other lifestyle factors that can impact glucose control. Monitor blood glucose and keep a log as instructed by checking fasting glucose in the AM and non fasting before bedtime with any additional checks as instructed. Patient instructed to bring glucose log to all scheduled appointments. Instructed on the importance of taking all medications as prescribed. Patient aware of the importance of diabetic eye exams, dental check ups, foot exams and diabetic foot care. Patient verbalized understanding. Related to Prediabetes Giving encouragement to exercise Related to Body mass index [BMI] 31.0-31.9, adult Lifestyle education regarding di et Related to Body mass index [BMI] 31.0-31.9, adult B-12 injection given in office today. Eat foods rich in B-12. Additional oral B12 replacement if indicated. Related to Vitamin B12 deficiency Strep test was posit ori. Continue to drink plenty of fluids, take tylenol or motrin per package instructions. Use warm salt water gargles daily. Place cough drops in freezer and us as instructed to soothe throat. You may also use 1-2 tsps of honey every 4 for cough or soothing of throat. Use Flonase 1 puff to each nare daily. take all antibiotics as prescribed. Related to Streptococcal sore throat Giving encouragement to exercise Related to Body mass index [BMI] 31.0-31.9, adult Lifestyle education regarding di et Related to Body mass index [BMI] 31.0-31.9, adult Low fat, low cholest sallie diet. Avoid fatty, fried, and greasy foods. Physical activity as tolerated. Counseled on risks of associated comorbidities, such as heart disease and stroke. Encouraged avoidance of tobacco products. Related to Pure hyperglyceridemia Patient educated on the importance of maintaining glycemic control. Counseled on diet, exercise and other lifestyle factors that can impact glucose control. Monitor blood glucose and keep a log as instructed by checking fasting glucose in the AM and non fasting before bedtime with any additional checks as instructed. Patient instructed to bring glucose log to all scheduled appointments. Instructed on the importance of taking all medications as prescribed. Patient aware of the importance of diabetic eye exams, dental check ups, foot exams and diabetic foot care. Patient verbalized understanding. Related to Prediabetes B-12 injection given in office today. Eat foods rich in B-12. Additional oral B12 replacement if indicated. Related to Vitamin B12 deficiency Patient instructed o n appropriate use of medications prescribed for back pain. Discussed conservative measures such as heat, ice, gentle strength stretching, and core muscle strengthening. Avoid heavy lifting, pulling, or tugging. Contact the clinic if any worsening or new symptoms related to back pain occur.Return to work 07/06/22 with the following restrictions: No lifting over 15 lbs, unable to repair web breaks at work, no bending. These restrictions should be in place for two weeks pending findings from [employer] specialist. Related to Pain in thoracic spine B-12 injection given in office today. Eat foods rich in B-12. Additional oral B12 replacement if indicated. Related to Vitamin B12 deficiency Patient instructed o n appropriate use of medications prescribed for back pain. Discussed conservative measures such as heat, ice, gentle strength stretching, and core muscle strengthening. Avoid heavy lifting, pulling, or tugging. Contact the clinic if any worsening or new symptoms related to back pain occur.Take prednisone for next dayscontinue diclofenac gel keep chiropratic care appt Related to Low back pain, unspecified Flu and covid vaccines today Rel ated to Encounter for immunization Patient instructed o n appropriate use of medications prescribed for back pain. Discussed conservative measures such as heat, ice, gentle strength stretching, and core muscle strengthening. Avoid heavy lifting, pulling, or tugging. Contact the clinic if any worsening or new symptoms related to back pain occur. Related to Low back pain, unspecified B-12 injection given in office today. Eat foods rich in B-12. Additional oral B12 replacement if indicated. Related to Vitamin B12 deficiency Drink plenty of flui ds. Take rest. Monitor oxygen saturation and heart rate. Go to the ER if resting oxygen saturation stays below 88%, or if any AMS, worsening dyspnea, chest pain, or other concerning symptoms. Verbalizes an understanding of all. Related to COVID-19 Low fat, low cholest sallie diet. Avoid fatty, fried, and greasy foods. Physical activity as tolerated. Counseled on risks of associated comorbidities, such as heart disease and stroke. Encouraged avoidance of tobacco products. Related to Pure hyperglyceridemia Counseled on importa nce of sleep hygiene. Maintain a consistent sleep schedule. Avoid caffeine for at least 6 hours prior to bed. Limit screen time (TV, phone, video games) before bed. Make sure bedroom is cool and dark, which improves sleep quality. If taking medications to help with insomnia, try to take at least 30 minutes before goal bed time. Aware that medications can cause daytime drowsiness. Avoid napping during the day, as it can further disrupt sleep cycle. Try to get 30 minutes of moderate physical activity daily. Verbalizes an understanding.Eliminate energy drinks from your dietDo not smoke right before bedtime. Related to Chronic fatigue, unspecified Patient educated on the importance of maintaining glycemic control. Counseled on diet, exercise and other lifestyle factors that can impact glucose control. Patient aware of the importance of diabetic eye exams, dental check ups, foot exams and diabetic foot care. Patient verbalized understanding.Increase fiber intake and good fats/oils Related to Prediabetes B-12 injection given in office today. Eat foods rich in B-12. Additional oral B12 replacement if indicated. Related to Vitamin B12 deficiency Take all antibiotics until complete. May take with food to ease stomach irritation. If you experience frequent yeast infections, you may consider taking an OTC probiotic while taking antibiotics, or eating yogurt with active cultures.Take one otc allergy medication daily (certirizine or zyrtec) 10 mg daily. Increase the amount of water you drink daily. It is recommended to drink 8 8oz. glasses of water daily. Use fluticasone, one spray to each nare daily. If fever or worsening occurs, return to clinic for follow up Related to Otitis media, unspecified, bilateral Take one otc allergy medication daily (certirizine or zyrtec) 10 mg daily. Increase the amount of water you drink daily. It is recommended to drink 8 8oz. glasses of water daily. Use fluticasone, one spray to each nare daily. If fever or worsening occurs, return to clinic for follow up Related to Acute ethmoidal sinusitis, unspecified continue current med icationsDo not stop them abruptlyRTC in April for fasting labs Related to Anxiety disorder, unspecified improvedContinue current medicat ions Related to Essential tremor Avoid eating spicy o r greasy foods. Take Ompeprazole 40 mg 20 minutes prior to eating with a full glass of water. Sleep with the head of the bed elevated 30 degrees. Return for worsening symptoms. Related to Gastro-esophageal reflux disease without esophagitis Giving encouragement to exercise Related to Body mass index [BMI] 30.0-30.9, adult Dietary management e ducation, guidance, and counseling Related to Body mass index [BMI] 30.0-30.9, adult encouraged diet and exercise Rel ated to Body mass index [BMI]30.0-30.9, adult Take your depression /anxiety medications as instructed. Do not stop them abruptly. Monitor your symptoms around the 2nd week of medication. If you have suicidal or homicidal ideation, and feel you might act on them, go to the ER. Call me if this occurs. ?Cynthia simona medicamentos/antidepresivos mireya las instrucciones. No parar bandar n dolas r p [place]. Si tienes ideas hacer da o o matarse, brittanyya al [facility]. Monitor simona s n aris de esto, especialmente la segunda semana despu s tomando el medicamento. Si lo pase aviso me. Related to Unspecified psychosis not due to a substance or known physiological condition Patient educated on the importance of maintaining glycemic control. Counseled on diet, exercise and other lifestyle factors that can impact glucose control. Patient verbalized understanding. Related to Prediabetes It is recommended to stop smoking to increase overall health and decrease risk of cardiovascular disease. If you wish to stop smoking, there is a free online Bonnie from smoking course offered through our local health department. You may call [phone] for more information. Related to Nicotine dependence, chewing tobacco, uncomplicated Avoid eating spicy o r greasy foods. Take Ompeprazole 40 mg 20 minutes prior to eating with a full glass of water. Sleep with the head of the bed elevated 30 degrees. Return for worsening symptoms. Related to Gastro-esophageal reflux disease without esophagitis Continue Proplanolol at 40 mg bidMonitor symptoms Related to Essential tremor Do not drink caffein e after 3 pm. Do not watch television or be on a computer/cell phone at least one hour before bedtime. Go to bed and get up at the same time daily. Avoid alcohol in the evening as well as smoking. Exercise daily, 30 min a day, 5 days weekly. Related to Chronic fatigue, unspecified Continue to take pro planolol 40 mg bidIncrease topamax to 50 mg at bedtimeStart taking fiber suplament to help control loose stoolsDietary Instructions for a healthy weight: BMI should be between the range of 18.5-24.9 for an adult; and Caloric intake should be around 7837-1971 for a female, and 7535-3322 for an adult male. Fiber intake should be about 14 grams for 1000 calories per day. That is about 20-30 grams daily. Good sources of fiber are oatmeal, fortified grains, and green leafy vegetables, apples. You can also use Carbohydrate counting to maintain a healthy weight. One serving is equal to 15 grams (1 piece of bread, small fruit, or 1 cup of milk). Men should have 45-75, Women about 30-65 per meal, and snacks are recommend to be 13-30 grams each.Take your depression/anxiety medications as instructed. Do not stop them abruptly. Monitor your symptoms around the 2nd week of medication. If you have suicidal or homicidal ideation, and feel you might act on them, go to the ER. Call me if this occurs. Related to Anxiety disorder, unspecified Dietary management e ducation, guidance, and counseling Related to Body mass index [BMI] 30.0-30.9, adult Giving encouragement to exercise Related to Body mass index [BMI] 30.0-30.9, adult Dietary management e ducation, guidance, and counseling Related to Body mass index [BMI] 30.0-30.9, adult Weight monitoring Related to Bod y mass index [BMI] 30.0-30.9, adult Assessments Type Assessment Date assessment Encounter for screening for depr ession assessment Other cholelithiasis w/o obstruc tion assessment Hyperlipidemia assessment Iron deficiency assessment Nicotine dependence, cigarettes, uncomplicated assessment Type 2 diabetes mellitus without complications assessment Vitamin B12 deficiency assessment Body mass index [BMI] 31.0-31.9, adult Mental Status Date Cognitive Assessment Orientation - [place] ed to time, place, person, situation.
[2025-06-13 08:10] VITALS: BP 125/87; PULSE 77; O2SAT 99
--- NOTE | 2025-06-13 08:13 | US_ITS ---
FINAL REPORT CLINICAL HISTORY: RUQ/Epigastric pain/Hx of Gallstones FINDINGS: RIGHT UPPER QUADRANT ULTRASOUND Technique: Ultrasound images of the right upper quadrant were obtained. There is mild diffuse fatty infiltration of the liver. Multiple gallstones are identified. Common duct is normal. The right kidney is unremarkable. IMPRESSION: Fatty liver. Multiple gallstones. Reviewed, Interpreted and Dictated by Phu Briones MD Transcribed by Danielle Cuevas Authenticated and [facility]
--- OUTSIDE RECORDS SUMMARY | 2025-06-13 08:13 | XMS_ITS | Clinical Summary ---
Author Organization [facility] Medical Address [address] [place] [phone] Phone Care Team Providers Care Over [employer] Targeting Supervisor Name Role Phone Es Leger DO Primary Care Physician [phone] Conditions or Problems Problem Name Problem Code [...] index [BMI] 30.0-30.9, adult Depression / anxiety 256823775 (SNOMED CT) 12/08 Active 12/08 Pardeep Kurtz [...] index [BMI] 29.0-29.9, adult Smoking cessation counseling 106917503 (SNOMED CT) 04/25 Inactive 04/25 Nakia Ramirez CAMPAIGN DIRECTOR Procedure carried out on subject Wound check 138281590 (SNOMED CT) 04/25 Inactive 04/25 Nakia Ramirez CAMPAIGN DIRECTOR Wound care Body mass index (BMI) 29.0-29.9; adult Z68.29 (ICD-10-CM ) 04/25 Removed 04/25 Nakia Ramirez CAMPAIGN DIRECTOR Body mass index [BMI] 29.0-29.9, adult Screening for hypercholes terolemia 616196561 (SNOMED CT) 04/25 Inactive 04/25 Nakia Ramirez CAMPAIGN DIRECTOR Cholesterol screening Screening for hypothyroid ism 734421066 (SNOMED CT) 04/25 Inactive 04/25 Nakia Ramirez CAMPAIGN DIRECTOR Thyroid disorder screening Screening for diabetes mellitus 041243337 (SNOMED CT) 04/25 Inactive 04/25 Nakia Ramirez CAMPAIGN DIRECTOR Diabetes mellitus screening Depression, acute 90155647 (SNOMED CT) 04/25 Inactive 04/25 Nakia Ramirez CAMPAIGN DIRECTOR Depressive disorder Establish care or get acquainted visit 051364191 (SNOMED CT) 04/25 Inactive 04/25 Nakia Ramirez CAMPAIGN DIRECTOR Procedure carried out on subject Medications Medication Instructions Start Date Stop Date Generic Name NDC Provider PROPRANOLOL HCL 10 MG TABS TAKE 1 TABLET BY MOUTH 2 TIMES A DAY PROPRANOLOL HCL 30811026635 Pardeep Kurtz MD HYDROXYZINE HCL 25 MG TABS Take 1-2 tablets by mouth once a day as needed for anxiety HYDROXYZINE HCL 61388209256 Pardeep Kurtz MD FISH OIL 1000 MG CAPS TAKE 1 CAPSULE BY MOUTH ONCE A DAY OMEGA-3 FATTY ACIDS 14606313812 Pardeep Kurtz MD HYDROXYZINE HCL 25 MG TABS Take 1-2 tablets by mouth once a day as needed for anxiety HYDROXYZINE HCL 47934496998 Pardeep Kurtz MD BUSPIRONE HCL 10 MG TABS TAKE 1 tablet BY MOUTH TWICE A DAY BUSPIRONE HCL 70883515237 Pardeep Kurtz MD BUSPIRONE HCL 10 MG TABS TAKE 1 tablet BY MOUTH TWICE A DAY BUSPIRONE HCL 90793325929 Pardeep Kurtz MD WELLBUTRIN XL 300 MG [id number] TAKE 1 TABLET BY MOUTH ONCE A DAY BUPROPION HCL 69237749361 Pardeep Kurtz MD BUPROPION HCL ER (XL) 150 MG [id number] TAKE 1 TABLET BY MOUTH ONCE A DAY BUPROPION HCL 41625871406 Nakia James MENDEZ FISH OIL 1000 MG CAPS TAKE 1 CAPSULE BY MOUTH ONCE A DAY OMEGA-3 FATTY ACIDS 05688817420 Nakia Ramirez APRN BUPROPION HCL ER (XL) 150 MG [id number] TAKE 1 TABLET BY MOUTH ONCE A DAY BUPROPION HCL 56111564444 Nakia Elr CAMPAIGN DIRECTOR CITALOPRAM HYDROBROMIDE 10 MG TABS TAKE 1 TABLET BY MOUTH 1 TIME A DAY CITALOPRAM HYDROBROMIDE 70241234010 Nakia Ramirez CAMPAIGN DIRECTOR CITALOPRAM HYDROBROMIDE 10 MG TABS TAKE 1 TABLET BY MOUTH 1 TIME A DAY CITALOPRAM HYDROBROMIDE 65581300361 Nakia Ramirez CAMPAIGN DIRECTOR MUPIROCIN 2 % OINT APPLY TO AFFECTED AREA 2 TIMES DAILY MUPIROCIN 71858313540 Nakia James LASTN Medications Administered No information [...] in Blood ABS NEUTROPH 4811 CELLS/UL 10*3/uL 8604-8442 N Neutrophils [#/volume] in Blood MPV 11.7 [...] Plan of Care Type Date Detail Referral [facility], [address] [place] [address], [address] Pending order T1 CBC with diff Pending order T1 CMP Pending order T1 HGBA1c Pending order T1 Lipid Panel Pending order T2 Vitamin D 25 Hydroxy Pending order T1 TSH reflex to free T4 Patient education Patient Educat ion Given Procedures Code Procedure Name Date Entry Date [facility]-[id number] Medication Reconciliation SCT-[id number] Giving encouragement to exercise CPT-3075F Most recent systolic blood pressure 130-139 mm Hg CPT-3079F Most recent diastoli c blood pressure 80-89 mm Hg CPT-1159F Medication list docu mented in medical record CPT-1160F Review of all medica tions by a prescribing practitioner SCT-[id number] Medication Reconciliation CPT-3074F Most recent systolic blood pressure <130 mm Hg CPT-3079F Most recent diastoli c blood pressure 80-89 mm Hg SCT-718161815 Giving encouragement to exercise SCT-[id number] Medication Reconciliation CPT-3074F Most recent systolic blood pressure <130 mm Hg CPT-3079F Most recent diastoli c blood pressure 80-89 mm Hg SCT-[id number] Medication Reconciliation CPT-3074F Most recent systolic blood pressure <130 mm Hg CPT-3079F Most recent diastoli c blood pressure 80-89 mm Hg CPT-3074F Most recent systolic blood pressure <130 mm Hg CPT-3078F Most recent diastoli c blood pressure <80 mm Hg SCT-[id number] Medication Reconciliation CPT-3074F Most recent systolic blood pressure <130 mm Hg CPT-3078F Most recent diastoli c blood pressure <80 mm Hg SCT-[id number] Medication Reconciliation SCT-107259276 Giving encouragement to exercise SCT-141701110 Dietary management education/guidance/counseling [facility] 6399 T1 CBC with diff [facility] 07809 T1 CMP [facility] 496 T1 HGBA1c [facility] 42279 T1 Lipid Panel [facility] 94150 T2 Vitamin D 25 Hydroxy 2018 [facility] 89349 T1 TSH reflex to free T4 201 [...]
[2025-06-13 08:14] VITALS: BP 125/87; PULSE 67; RESP 20; TEMP 36.7; O2SAT 98; BMI 31.8
--- OUTSIDE RECORDS SUMMARY | 2025-06-13 08:14 | XMS_ITS | Clinical Summary ---
[facility] Organization [facility] Address [address] [place] [address] Care Team Providers Care Engraver Flatware Name Role Phone Nakia Ramirez APRN Primary Care Provider [phone] Allergies No known active allergies Medications cyclobenzaprine [...] TEST 2024 FIT Testing (1 year) 2024 INFLUENZA VACCINE 04/11/2025 07/14/2023, 06/20/2022 Insurance * Guarantor: Gokul Boyle Account Type Relation to Patient Date of Phone Billing Address Personal/Family Self 1980 [address] [facility] [address] [place] [address] [facility] PPO Care Teams Engraver Flatware Relationship Specialty Start Date End Date Nakia Ramirez APRN [place] [phone] PCP - General Family Medicine 10/26/23
--- OUTSIDE RECORDS SUMMARY | 2025-06-13 08:14 | XMS_ITS | Encounter Summary ---
Author Organization [facility] Address [address] [place] [address] Care Team Providers Care Agricultural Consultant Name Role Phone Nakia Ramirez APRN Primary Care Provider + Reason for Referral * Consultation (Routine) - Closed Specialty Diagnoses / Procedures Referred By Contkaren t Referred To Contact Orthopaedic Surgery Diagnoses Midline thoracic back pain, unspecified chronicity Lumbar back pain Nakia Ramirez APRN [address] [place] [address] Phone: tel: fax: Medical Office [facility] [address], [address] [place] [address] Phone: tel: fax: Referral ID Status Reason Start Date Expiration Date Visits Re quested Visits Authorized [id number] Closed 07/05/2022 01/04/2024 1 1 Encounter Details Date Type Department Care Team (Late st Contact Info) Description 07/05/2022 [facility] [address] [place] [address] Nakia Ramirez APRN [address] [place] [address] (Fax) Midline thoracic back pain, unspecified chronicity [...] [facility] [address] [place] [address] Jefferson Mccarthy, [address] [place] [address] Scheduled Referrals Name Type Priority Associated Diagnoses Orde r Schedule Ambulatory referral to Orthopaedics Spine Outpatient Referral Routine Midline thoracic back pain, unspecified chronicity Lumbar back pain Expected: 07/05/2022 (Approximate), Expires: 01/04/2024 documented as of this encounter Visit Diagnoses Diagnosis Midline thoracic back pain, unspecified chronicity- Primary Lumbar back pain Lumbago documented in this encounter Care Teams Agricultural Consultant Relationship Specialty Start Date End Date Nakia Ramirez APRN [address] [place] [address] PCP - General 07/13/22 documented as of this encounter
--- OUTSIDE RECORDS SUMMARY | 2025-06-13 08:15 | XMS_ITS | Clinical Summary ---
Author Organization [facility] Address [address] [place] [address] Care Team Providers Care Painting Machine Operator Name Role Phone Nakia Ramirez APRN Primary Care Provider [phone] Allergies No known active allergies Medications loratadine [...] time each day. 3 Active [facility] [place] 0.05 % nasal spray SPRAY 2 SPRAY BY INTRANASAL ROUTE 2 TIMES EVERY DAY IN EACH NOSTRIL IN THE MORNING AND EVENING 3 Active ALPRAZolam (Xanax) 1 MG tablet Take 1 tab 1 hour prior to procedure, if no change in anxiety in 30 minutes take 2nd tab. Bring 3rd tab to office with route sales delivery driver. 3 tablet 4 Active ferrous sulfate [...] [facility] [address] [place] [address] Jefferson Mccarthy, DO Midline thoracic back pain, unspecified chronicity; Myofascial pain; Lumbar back pain; Facet arthropathy; Vertebrogenic pain; Lumbar radiculopathy 03/27/2025 Travel from Last 3 Months Immunizations Immunization Administration Dates Next Due Influenza, injectable, quadrivalent, preservativ e free 06/20/2022 [employer] COVID-19 Vaccine (Purple Cap) 12 + 12/25/2020,11/18/2020 Family History Medical History Relation Name Comments Diabetes type II Father Diabetes type II Mother Heart attack Mother Stroke Mother Relation Name Status Comments Father Mother Social History Tobacco Use Types Packs/Day Years Used Date Smoking Tobacco: Every Day Cigarettes 1 23.8 Started: 09/11/2001 Smokeless Tobacco: Never Tobacco Cessation:Ready [...] [facility] [address] [place] [address] Jefferson Mccarthy, DO [address] [place] [id number] Health Maintenance Due Date Last Done Comments [...] 2024 Sigmoidoscopy 2024 [facility]-Colorectal Cancer Screening 2024 [id number] Vaccine ( season) 2025 06/20/2022, 12/25/2020, 11/18/2020 [...] complete this topic Insurance ANTH Care Teams Painting Machine Operator Relationship Specialty Start Date End Date Nakia Ramirez APRN [address] [place] [address] PCP - General 07/13/22
--- NOTE | 2025-06-13 08:17 | ECG_ITS ---
APPROVED REPORT Exam: Resting ECG HR:68 bpm ECG Measurements Heart Rate 68 AXES MA 164 P 69 QRSd 87 QRS 86 QT 360 T 45 QTc 377 Conclusion Normal sinus rhythm Normal axis Normal intervals No STEMI Electronically signed by : Brent Queen, 06/13/2025 16:09:00
[2025-06-13 08:23] LABS: Hematocrit 46.0 % (42.0-52.0); Hemoglobin 15.2 g/dL (14.1-18.0); Immature Granulocytes % 0.3 %; Mean Corpuscular HGB Conc 33.0 g/dL (31.8-35.4); Mean Corpuscular Hemoglobin 30.5 pg (27.0-31.2); Mean Corpuscular Volume 92.4 fl (80-94); Nucleated Red Blood Cells % 0 %; Platelet Count 189 K/mm3 (142-424); Red Blood Count 4.98 M/mm3 (4.60-6.20); Red Cell Distribution Width-SD 46.5 fL; White Blood Count 10.4 K/mm3 (4.8-10.8)
[2025-06-13 08:30] VITALS: BP 114/79; PULSE 69; O2SAT 95
[2025-06-13 08:35] LABS: Chloride 102 mmol/L (98-107)
[2025-06-13 08:36] LABS: Albumin Level 4.3 g/dl (3.5-5.0); Potassium 4.2 mmoL/L (3.5-5.1); Sodium 140 mmol/L (136-145)
--- NOTE | 2025-06-13 08:36 | HMH.EDGENADL ---
Discharge Plan Disposition Patient Disposition: Home, Self-Care Condition: Good Prescriptions Prescriptions: No Action sertraline 50 mg tablet 50 mg PO DAILY Patient Comments: TAKE 1 TABLET BY MOUTH EVERY DAY topiramate 50 mg tablet 50 mg PO DAILY ezetimibe 10 mg tablet 10 mg PO DAILY diclofenac sodium 75 mg tablet,delayed release (DR/EC) 75 mg PO DAILY Patient Comments: TAKE 1 TABLET (75 MG) BY MOUTH 2 (TWO) TIMES A DAY. DO NOT CRUSH, CHEW, OR SPLIT. duloxetine 60 mg capsule,delayed release(DR/EC) 60 mg PO DAILY Patient Comments: TAKE 1 CAPSULE (60 MG) BY MOUTH 1 (ONE) TIME EACH DAY. DO NOT CRUSH OR CHEW. cholecalciferol (vitamin D3) 50 mcg (2,000 unit) capsule 50 mcg PO DAILY Patient Comments: TAKE 1 CAPSULE BY ORAL ROUTE EVERY DAY FOR VITAMIN D DEFICIENCY cyclobenzaprine 10 mg tablet 10 mg PO DAILY Patient Comments: TAKE 1 TABLET (10 MG) BY MOUTH 3 (THREE) TIMES A DAY IF NEEDED FOR MUSCLE SPASMS. metformin 500 mg tablet extended release 24 hr 500 mg PO DAILY Patient Comments: TAKE 1 TABLET BY ORAL ROUTE 2 TIMES EVERY DAY WITH THE EVENING MEAL omeprazole 40 MG capsule,delayed release(DR/EC) 40 mg PO DAILY hydrocodone-acetaminophen 5-325 mg Tablet 1 - 2 tab PO Q6H PRN (Reason: Pain) Qty: 21 0RF sucralfate 1 gram tablet 1 g PO DAILY Qty: 30 0RF Referrals Follow up/Referrals: Nakia Ramirez APRN [Primary Care Provider, Medical] - See instructions Activity Restrictions/Add. Instructions Additional Instructions/Restrictions: Your labs and Ultrasound today were normal. I want you to follow up with Gastroenterology this upcoming week as previously planned. In the meantime you can apple picker Tums or Pepcid over the counter for symptomatic control at home. If you have any new or worsening symptoms please return to the ER for further evaluation. Clinical Impressions Clinical Impression: Abdominal pain Qualifiers: Abdominal location: upper abdomen, unspecified Qualified Code(s): R10.10 - Upper abdominal pain, unspecified Instructions Patient Instructions: DI for Acute Abdominal Pain Print Language Print Language: Sammarinese Discharge ED Provider: Brent Queen Adult [facility] General Chief complaint: Abdominal Pain Stated complaint: Upper ABD Pain Time Seen by Provider: 06/13/25 08:13 Mode of Arrival: Ambulatory Source of Information: Patient Description of Symptoms (Recalled from ER Triage Doc. by RN): Patient presents to ED with upper ABD pain rating pain 7/10 at this time. Patient states he was seen about a month ago in ED for same issue and was told he had a possible ulcer and some gallstones. Then was reffered to GI, his appointment is not until next week 06/18. Patient has taken some pepto this AM. History of Present Illness HPI narrative: Is a 44-year-old male patient, with past medical history of known cholelithiasis, who is presenting to the emergency department today for evaluation of abdominal pain. Patient was seen in the beginning of May and had a transaminitis here in the emergency department and had a right upper quadrant ultrasound showing cholelithiasis. At that time he was recommended to follow-up outpatient with a specialist. He has not done so yet. He states that last night he began experiencing recurrent pain in the right upper quadrant and epigastrium that was radiating up into the chest. He tells me that this pain worsened significantly upon waking this morning. When the pain began it was not associated with nausea or diaphoresis. It does not radiate into his back, neck, or arms. Pain is not described as pleuritic in nature. He is not having any associated bowel symptoms Related Data Home Medications ?Medication ?Instructions ?Recorded ?Confirmed omeprazole 40 mg capsule,delayed 40 mg PO DAILY acid reflux 02/05/21 10/28/24 release sertraline 50 mg tablet 50 mg PO DAILY 11/18/21 10/28/24 cholecalciferol (vitamin D3) 50 50 mcg PO DAILY 10/03/24 10/28/24 mcg (2,000 unit) capsule cyclobenzaprine 10 mg tablet 10 mg PO DAILY 10/03/24 10/28/24 diclofenac sodium 75 mg 75 mg PO DAILY 10/03/24 10/28/24 tablet,delayed release duloxetine 60 mg capsule,delayed 60 mg PO DAILY 10/03/24 10/28/24 release ezetimibe 10 mg tablet 10 mg PO DAILY 10/03/24 10/28/24 metformin 500 mg tablet,extended 500 mg PO DAILY 10/03/24 10/28/24 release 24 hr topiramate 50 mg tablet 50 mg PO DAILY 10/03/24 10/28/24 Previous Rx's ?Medication ?Instructions ?Recorded hydrocodone 5 mg-acetaminophen 325 1 - 2 tab PO Q6H PRN Pain #21 tabs 10/28/24 mg tablet sucralfate 1 gram tablet 1 g PO DAILY #30 tabs 05/19/25 Allergies Allergy/AdvReac Type Severity Reaction Status Date / Time No Known Allergies Allergy Verified 10/28/24 06:26 [facility] Disclaimer: The information contained in this section may have been updated after the patient was seen, as this information can be updated by other users. Medical History (Updated 06/13/25 @ 10:49 by Brent Queen DO) GERD (gastroesophageal reflux disease) Chronic back pain HLD (hyperlipidemia) Diabetes Surgical History History of prior ablation treatment History of foot surgery Family History Other Family history of dementia Family history of diabetes mellitus Family history of kidney disease Social History Smoking Status: Current every day smoker tobacco type: cigarettes packs per day: 1 second hand exposure: Yes alcohol intake: never substance use type: denies use current occupational status: employed and disabled Travel in the last 8 weeks?: Inside the [place] household members: significant other and children housing: house current occupation: 3[employer] current occupational exposures/hazards: No caffeine: Yes Have you lived/traveled outside US in past 30 days?: No Contact w/someone who lives/traveled outside US past 30 days?: No Exposure to someone with infectious disease in past 14 days?: No Do you have a fever (greater than 100.4 F or 38 C)?: No Have you tested positive for COVID-19?: No Exposed to someone with COVID-19 in past 14 days?: No Do you have a sore throat?: No Do you have a cough?: No Do you have any weakness?: No Do you have any diarrhea?: No Are you experiencing any unusual bleeding?: No Do you have any muscle aches/pain?: No Do you have any abdominal pain?: No Are you experiencing loss of taste or smell?: No Other Medical History Have you received the Flu Vaccine for this season: Yes Have you received the Pneumonia Vaccine: No ROS Obtained: Yes Systems reviewed as appropriate & no additional complaints except as documented Physical Exam General General appearance: other (See MDM) Respiratory Respiratory exam: Present other (See MDM) Cardiovascular Cardiovascular exam: Present other (See MDM) Neurological Exam Neurological exam: Present other (See MDM) Medical Decision Making Medical Records Medical records reviewed: Yes I reviewed the patient's medical records. Screening: Per USPSTF and CDC recommendations, given the prevalence of disease in our region, it is our hospital?s policy to screen for HIV and viral Hepatitis for all patients aged 18 and over and those with ongoing risk factors. Lee Inquiry Pt receiving controlled substance: No Lee was queried for this patient: No Vital Signs: 06/13/25 08:10 06/13/25 08:14 06/13/25 08:30 Temperature 98.0 F Temperature Source Oral Pulse Rate 77 69 Pulse Rate [Right Brachial] 67 Respiratory Rate 20 Blood Pressure 125/87 114/79 Blood Pressure [Right Arm] 125/87 Blood Pressure Mean [Right Arm] 99 Blood Pressure Source [Right Arm] Automatic Cuff Blood Pressure Position [Right Arm] Sitting 02 Sat by Pulse Oximetry 99 98 95 Oxygen Delivery Method Room Air Lab Data Lab results reviewed: Yes I reviewed the patient's lab results. Lab Results 06/13/25 08:15: WBC 10.4, RBC 4.98, Hgb 15.2, Hct 46.0, MCV 92.4, MCH 30.5, MCHC 33.0, RDW 13.7, Plt Count 189, MPV 12.0 H, Neut % (Auto) 58.5, Lymph % (Auto) 28.4, Williamson % (Auto) 8.2, Eos % (Auto) 3.5, Baso % (Auto) 1.1, Neut # (Auto) 6.1, Lymph # (Auto) 3.0, Williamson # (Auto) 0.9, Eos # (Auto) 0.4, Baso # (Auto) 0.1, Sodium 140, Potassium 4.2, Chloride 102, Carbon Dioxide 30, Anion Gap 12.2, BUN 9, Creatinine 1.10, Estimated Creat Clear 128, Estimated GFR 72, Est GFR ( Amer) 88, Glucose 142 H, Lactate 1.1, Calcium 9.6, Total Bilirubin 0.1 L, Direct Bilirubin 0.0, AST 26, ALT 32, Alkaline Phosphatase 86, Troponin I < 0.01, Total Protein 7.4, Albumin 4.3, Globulin 3.1, Albumin/Globulin Ratio 1.4, Lipase 67, HCV Ab STAR w/Rflx PCR Qn Negative, HIV Ag/Ab Combo Qual Negative 06/13/25 08:15 06/13/25 08:15 Orders (Tests/Meds): ED MEDICATIONS Generic Name Dose Route Start Last Admin Trade Name Freq PRN Reason Stop Dose Admin Sodium Chloride 8 ml 06/13/25 08:42 06/13/25 09:09 Sodium Chloride 0.9% 10ml Vial IV 07/13/25 08:41 8 ml NEEDED PRN Administration dilute pepcid Discontinued Medications Generic Name Dose Route Start Last Admin Trade Name Freq PRN Reason Stop Dose Admin Belladonna Alkaloids 60 ml 06/13/25 08:42 06/13/25 09:08 Belladonna Alkaloids 60 Ml Ml PO 06/13/25 08:43 60 ml ONCE ONE Administration Famotidine 20 mg 06/13/25 08:42 06/13/25 09:09 Famotidine 20mg/2ml Vial IV 06/13/25 08:43 20 mg ONCE ONE Administration Morphine Sulfate 4 mg 06/13/25 08:25 06/13/25 08:42 Morphine 4mg/Ml Syringe IV 06/13/25 08:26 4 mg ONCE ONE Administration Ondansetron HCl 4 mg 06/13/25 08:25 06/13/25 08:43 Ondansetron 4mg/2ml Vial IV 06/13/25 08:26 4 mg ONCE ONE Administration ORDERS Category Date Time Status CXR --portable [XR chest portable] Stat Exams 06/13/25 08:42 Completed US gallbladder Stat Exams 06/13/25 08:13 Completed Bilirubin,Direct Stat Lab 06/13/25 08:15 Completed CBC w/Auto Diff [Complete Blood Count Auto Diff] Stat Lab 06/13/25 08:15 Completed CMP [Comprehensive Metabolic Panel] Stat Lab 06/13/25 08:15 Completed HIV Combo Stat Lab 06/13/25 08:15 Completed Hepatitis C Ab Qual. W/ RFX Stat Lab 06/13/25 08:15 Completed Lactic Acid Stat Lab 06/13/25 08:15 Completed Lipase Stat Lab 06/13/25 08:15 Completed Troponin I Q3H Lab 06/13/25 11:15 Ordered Troponin I Q3H Lab 06/13/25 14:15 Ordered Troponin I Stat Lab 06/13/25 08:15 Completed ECG Data Tracing #1: I reviewed this ECG and interpreted as documented below: EKG personally interpreted by me demonstrates normal sinus rhythm with a rate of 68 bpm, normal axis, no VA prolongation, narrow QRS, no QTc prolongation. No ST elevation or depression. No overt signs of ischemia or arrhythmia Medical Decision Narrative: In summary, this is a 44-year-old male patient who is presenting to the emergency department today with complaint of right upper quadrant and epigastric pain that is radiating into the retrosternal portion of his chest. Patient states this pain began last night and worsened throughout the night and into this morning. He does have a known history of cholelithiasis and has not yet followed up with a specialist. Comorbidities include tobacco abuse as well as a prior umbilical hernia repair. On initial evaluation of the patient they were resting comfortably in no acute distress and nontoxic in appearance. They are hemodynamically stable, saturating well room air, and are neurologically intact. On physical examination the patient is appropriately alert and interactive with GCS 15. Heart and lungs are clear to auscultation bilaterally. He has focal right upper quadrant tenderness to palpation with voluntary guarding. He has no lower extremity erythema or edema. Differential diagnosis includes cholelithiasis, choledocholithiasis, cholecystitis, ACS/PA, pancreatitis, gastritis, among others. Workup was initiated with hematologic labs as well as a right upper quadrant ultrasound. Labs were personally interpreted by me and demonstrate no leukocytosis or actionable anemia. No electrolyte derangements or acute kidney injury. LFTs are normal and bilirubin is 0.1 which suggest against biliary pathology as cause of his pain. Troponin is less than 0.01 and pain has been persisting for greater than 6 hours so I do not feel that it is necessary to obtain a delta troponin. Additionally, his EKG appears to be nonischemic. Chest x-ray was personally turbid by me and demonstrates no lobar consolidation or pleural effusion. No free air underneath diaphragm. Right upper quadrant ultrasound was obtained and demonstrates cholelithiasis with no overt findings of cholecystitis. We treated the patient's pain with 4 mg of morphine and 4 mg of Zofran. He was still experiencing pain so we added on a GI cocktail and famotidine. Almost immediately the patient had complete resolution of symptoms. My suspicion is that this pain could be caused by gastritis or esophagitis. The patient has follow-up with gastroenterology this upcoming week where he we will be able to obtain further workup for his symptoms. I have recommended that he start taking Pepcid at home for symptomatic control. At this time all questions have been answered and all parties are agreeable with the decision to discharge home Critical Care Critical Care Time Critical Care Time: No
[2025-06-13 08:38] LABS: Alanine Aminotransferase 32 U/L (12-78); Alkaline Phosphatase 86 U/L (38-126); Anion Gap 12.2 mEq/L (5-15); Aspartate Amino Transferase 26 U/L (17-59); Blood Urea Nitrogen 9 mg/dl (9-20); Carbon Dioxide 30 mmol/L (22.0-30.0); Creatinine Clearance Estimated 128 mL/min (50-200); Creatinine,Serum 1.10 mg/dl (0.66-1.25); Estimated Glomerular Filt Rate 72 ml/min (>60); GFR (African American) 88 ML/MIN (>60)
[2025-06-13 08:39] LABS: Albumin/Globulin Ratio 1.4 (1.1-1.8); Bilirubin,Direct 0.0 mg/dl (0.0-0.4); Bilirubin,Total 0.1 mg/dl (0.2-1.3); Calcium 9.6 mg/dl (8.4-10.2); Globulin 3.1 g/dL (1.3-3.2); Glucose 142 mg/dl (74-100); Lipase 67 U/L (23-300); Total Protein,Serum 7.4 g/dl (6.3-8.2)
[2025-06-13] MEDS: MORPHINE 4MG/ML SYRINGE 4 MG IV (08:42)
--- NOTE | 2025-06-13 08:42 | XR_ITS ---
FINAL REPORT CLINICAL HISTORY: Chest pain/RUQ pain COMPARISON: 05/19/2025 FINDINGS: SINGLE VIEW CHEST The heart is normal in size. The mediastinum is unremarkable. Patient is in lordotic positioning. There are mild chronic changes in both lungs. The lungs are otherwise clear. There is no pneumothorax. IMPRESSION: No acute process. Reviewed, Interpreted and Dictated by Phu Briones MD Transcribed by Danielle Cuevas Authenticated and [facility]
[2025-06-13] MEDS: ONDANSETRON 4MG/2ML VIAL 4 MG IV (08:43)
[2025-06-13 08:54] LABS: Troponin I < 0.01 ng/ml (0.00-0.034)
[2025-06-13] MEDS: BELLADONNA ALKALOIDS 60 ML ML PO (09:08)
[2025-06-13] MEDS: FAMOTIDINE 20MG/2ML VIAL 20 MG IV (09:09)
[2025-06-13] MEDS: SODIUM CHLORIDE 0.9% 10ML VIAL 8 ML IV (09:09)
[2025-06-13 09:45] LABS: Hepatitis C Ab Qual. W/ RFX NEGATIVE (Negative)
[2025-06-13 10:51] VITALS: BP 120/74; PULSE 68; RESP 18; TEMP 36.7; O2SAT 97
== END 2025-06-13 10:53 | disposition home or self-care (01) ==
PROVIDERS: Emergency Provider Student in an Organized Health Care Education/Training Program; PCP Nurse Practitioner Family
DX: R10.10 Upper abdominal pain, unspecified (principal); K80.20 Calculus of gallbladder without cholecystitis without obstruction; F17.210 Nicotine dependence, cigarettes, uncomplicated
CPT/HCPCS: 71045; 76705; 80053; 82248; 83605; 83690; 84484; 85025; 86803; 87389; 93005; 96374; 96375; 99285; J1308; J2270; J2405

== ENCOUNTER 2025-06-30 12:38 | Day surgery (SDC) | payer BC, SELFPAY ==
--- NOTE | 2025-06-27 10:41 | SUR.PREOP ---
left message regardin arrival time, npo status and need for recycling collections driver. left callback number as well
--- NOTE | 2025-06-29 12:47 | EXP.HP ---
History of Present Illness *Admission Date: 06/30/25 *History of present illness: Mr. Boyle is a 44-year-old gentleman who is here for diagnostic EGD. The patient reports gastroesophageal reflux for 5 or 6 years and has been on omeprazole 40 mg by mouth daily. This does control his heartburn and reflux and he may get some breakthrough bleeding satiety.. Just over 1 month ago, he developed more severe epigastric abdominal pain and went to the emergency department. His CAT scan showed focal wall thickening of the gastric fundus. There was also some gastrohepatic ligament lymphadenopathy identified on the testing. He has had an increase in bloating and belching. He did go back to the ED a couple of weeks later with similar symptoms that resolved with the GI cocktail. He reports no nausea or vomiting and reports normal bowel function. He has never had an upper endoscopy. The examination is deemed medically necessary for diagnostic EGD. The patient has been seen, interviewed and examined prior to the procedure by both myself and the anesthesia provider. [facility] Disclaimer: The information contained in this section may have been updated after the patient was seen, as this information can be updated by other users. Medical History GERD (gastroesophageal reflux disease) Chronic back pain HLD (hyperlipidemia) Diabetes Surgical History History of prior ablation treatment History of foot surgery Family History Other Family history of dementia Family history of diabetes mellitus Family history of kidney disease Social History Smoking Status: Current every day smoker tobacco type: cigarettes packs per day: 1 second hand exposure: Yes alcohol intake: never substance use type: denies use current occupational status: employed and disabled Travel in the last 8 weeks?: [place] the [place] household members: significant other and children housing: house current occupation: [employer] current occupational exposures/hazards: No caffeine: Yes Have you lived/traveled outside US in past 30 days?: No Contact w/someone who lives/traveled outside US past 30 days?: No Exposure to someone with infectious disease in past 14 days?: No Do you have a fever (greater than 100.4 F or 38 C)?: No Have you tested positive for COVID-19?: No Exposed to someone with COVID-19 in past 14 days?: No Do you have a sore throat?: No Do you have a cough?: No Do you have any weakness?: No Do you have any diarrhea?: No Are you experiencing any unusual bleeding?: No Do you have any muscle aches/pain?: No Do you have any abdominal pain?: No Are you experiencing loss of taste or smell?: No Other Medical History Have you received the Flu Vaccine for this season: Yes Have you received the Pneumonia Vaccine: No Review of Systems Review of Systems Review of systems (narrative): Negative *Cardiovascular Comments: Negative *Gastrointestinal Comments: Negative *Genitourinary Comments: Negative *Musculoskeletal Comments: Negative *Neurologic Comments: Negative Meds Home Medications and Allergies Home Medications ?Medication ?Instructions ?Recorded ?Confirmed ?Type omeprazole 40 mg capsule,delayed 40 mg PO DAILY acid reflux 02/05/21 06/30/25 History release sertraline 50 mg tablet 50 mg PO DAILY 11/18/21 06/30/25 History cholecalciferol (vitamin D3) 50 50 mcg PO DAILY 10/03/24 06/30/25 History mcg (2,000 unit) capsule cyclobenzaprine 10 mg tablet 10 mg PO DAILY 10/03/24 06/30/25 History duloxetine 60 mg capsule,delayed 60 mg PO DAILY 10/03/24 06/30/25 History release ezetimibe 10 mg tablet 10 mg PO DAILY 10/03/24 06/30/25 History metformin 500 mg tablet,extended 500 mg PO DAILY 10/03/24 06/30/25 History release 24 hr topiramate 50 mg tablet 50 mg PO DAILY 10/03/24 06/30/25 History aluminum-mag hydroxide-simethicone 5 ml PO QID PRN Stomach Upset 06/18/25 06/30/25 History 400 mg-400 mg-40 mg/5 mL oral susp (Mylanta Maximum Strength) celecoxib 200 mg capsule 200 mg PO DAILY 06/18/25 06/30/25 History sucralfate 100 mg/mL oral 5 ml PO QID #500 mL 06/18/25 06/30/25 Rx suspension (Carafate) New Prescriptions to Start Prescriptions: Allergies Allergy/AdvReac Type Severity Reaction Status Date / Time No Known Allergies Allergy Verified 06/18/25 09:45 Exam *Routine HEENT Exam Head: Present normocephalic Eye: Present EOMI and PERRL ENT: Present mucous membranes moist *Routine Neck Exam Neck: Present supple *Routine Respiratory Exam Respiratory: Present CTA bilaterally *Routine Cardiovascular Exam Cardiovascular: Present RRR *Routine Abdominal Exam Abdominal: Present soft and normoactive bowel sounds; Absent tenderness *Routine Rectal Exam Rectal:: deferred *Routine Genitalia Exam Genitalia:: deferred *Routine Extremities Exam Extremities: Absent cyanosis, clubbing or edema *Routine Skin Exam Skin: Present warm; Absent rash *Routine Neurological Exam Neurological: Present alert and oriented X3 Assessment and Plan *Assessment and plan (1) Abnormal CT scan, stomach: Status: Acute Category: Medical Code(s): R93.3 - Abnormal findings on diagnostic imaging of other parts of digestive tract (2) GERD (gastroesophageal reflux disease): Status: Acute Category: Medical Code(s): K21.9 - Gastro-esophageal reflux disease without esophagitis (3) Belching: Status: Acute Category: Medical Code(s): R14.2 - Eructation (4) Bloating symptom: Status: Acute Category: Medical Code(s): R14.0 - Abdominal distension (gaseous) (5) Epigastric pain: Status: Acute Category: Medical Code(s): R10.13 - Epigastric pain Plan A/P: 1. Abnormal CAT scan of the stomach is the preprocedural diagnosis. The patient has had 2 episodes of severe epigastric pain/dyspepsia and does have chronic GERD the patient will be anesthetized/sedated using MAC sedation. The patient has been seen and examined. Cardiac and lung assessment prior to the examination is stable. Proceed with planned diagnostic EGD.
--- NOTE | 2025-06-30 06:46 | HMH.PROCNOTE ---
[facility] Procedure Note Date: 06/30/25 Time: 13:43 Procedure Note:: Upper Endoscopy Procedure Report: Esophagogastroduodenoscopy with cold biopsies Endoscopost: Bj Kelley II, MD Referring Physician: LETY Hsieh Date of Procedure: June 30, 2025 Equipment: Olympus GIF-1100 standard upper endoscope Sedation: MAC sedation Indications: Mr. Boyle is a 44-year-old gentleman who is here for diagnostic EGD. The patient reports gastroesophageal reflux for 5 or 6 years and has been on omeprazole 40 mg by mouth daily as needed. This does control his heartburn and reflux and he may get some breakthrough bleeding satiety. Just over 1 month ago, he developed more severe mid epigastric and lower sternal pain and went to the emergency department. His CAT scan showed focal wall thickening of the gastric fundus. There was also some gastrohepatic ligament lymphadenopathy identified on the testing. He did go back to the ED a couple of weeks later with similar symptoms that resolved with the GI cocktail. The patient continues to have postprandial pain in this area. He has had an increase in bloating, belching and fullness. He has lost a few pounds. He reports no nausea or vomiting and reports normal bowel function. He has never had an upper endoscopy. The examination is deemed medically necessary for diagnostic EGD. Procedure: Prior to the procedure, a history and physical exam was performed, and patient's medications and allergies were reviewed. The risks, benefits and alternatives of the sedation and procedure were discussed with the patient. All questions were answered and informed consent was obtained. The patient was brought to the procedure room. Patient identification and proposed procedure were verified by the physician and the nurse. The patient was placed in a left lateral decubitus position and the scope was passed under direct vision. Throughout the procedure, the patient's blood pressure, pulse, and oxygen saturations were monitored continuously. The upper GI endoscopy was accomplished without difficulty. The patient tolerated the procedure well. Findings: The scope was passed directly into the upper esophagus and advanced to the third portion of the duodenum. The post bulbar duodenum and duodenal bulb were normal with normal mucosa and conniventes. The scope was withdrawn through a normal duodenal bulb and pylorus into the stomach. The antrum and body of the stomach were normal. Upon retroflexion there was a cavitary mass in the fundus of the stomach at the GE junction. There was central cavitation and depression with central ulceration and marked friability. This did encompass more than 50% of the diameter at the GE junction and extended into the esophagus. Multiple biopsies were obtained. The scope was then withdrawn into the esophagus. The remainder of the esophageal mucosa was normal. Impression: 1. 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 I will discuss the findings with the patient and family and refer to oncology (Jefferson Kraft MD) and eventual oncologic surgery (Jefferson Hernandez MD and Sunny Vigil MD ([facility]).
[2025-06-30 12:57] VITALS: BMI 30.7
[2025-06-30] MEDS: LACTATED RINGERS 1000ML 1,000 ML 50 ML IV (13:00)
[2025-06-30 13:06] VITALS: BP 119/85; PULSE 71; RESP 18; TEMP 36.2; O2SAT 96
--- NOTE | 2025-06-30 13:12 | EXP.ANES.CKL ---
[facility] Disclaimer: The information contained in this section may have been updated after the patient was seen, as this information can be updated by other users. Medical History GERD (gastroesophageal reflux disease) Chronic back pain HLD (hyperlipidemia) Diabetes Surgical History History of prior ablation treatment History of foot surgery Family History Other Family history of dementia Family history of diabetes mellitus Family history of kidney disease Social History Smoking Status: Current every day smoker tobacco type: cigarettes packs per day: 1 second hand exposure: Yes alcohol intake: never substance use type: denies use current occupational status: employed and disabled Travel in the last 8 weeks?: Inside the [place] household members: significant other and children housing: house current occupation: 3M current occupational exposures/hazards: No caffeine: Yes Have you lived/traveled outside US in past 30 days?: No Contact w/someone who lives/traveled outside US past 30 days?: No Exposure to someone with infectious disease in past 14 days?: No Do you have a fever (greater than 100.4 F or 38 C)?: No Have you tested positive for COVID-19?: No Exposed to someone with COVID-19 in past 14 days?: No Do you have a sore throat?: No Do you have a cough?: No Do you have any weakness?: No Do you have any diarrhea?: No Are you experiencing any unusual bleeding?: No Do you have any muscle aches/pain?: No Do you have any abdominal pain?: No Are you experiencing loss of taste or smell?: No [facility] Anesthesia Checklist Patient Identification Patient Identification: Arm Band and Verbal (Name & ) Structural Data Admitted From: Home Planned Operative Procedure/s: EGD Consent for Planned Operative Procedure(s) Verified: Yes Verified Documents: Surgical Consent and History and Physical NPO Status Verified Time NPO: 00:00 Additional verifications Anesthesia Reactions: No Hx Blood Transfusions: No Blood Transfusion Reaction: No Airway Assessment Mallampati Score:: Class II Dentition: Dentures-good fit Neurological Assessment Level of Consciousness: Awake, Alert and Appropriate Anesthesia Plan Anesthesia Risk discussed: Yes Anesthesia Plan: Verified ASA Class: II Anesthesia Type: MAC
[2025-06-30 13:42] VITALS: BP 144/85; PULSE 92; RESP 20; TEMP 36.1; O2SAT 93
[2025-06-30 13:52] VITALS: BP 155/84; PULSE 85; RESP 20; TEMP 36.1; O2SAT 94
[2025-06-30 14:02] VITALS: BP 147/86; PULSE 81; RESP 20; O2SAT 95
[2025-06-30 14:12] VITALS: BP 145/87; PULSE 78; RESP 18; TEMP 36.1; O2SAT 95
[2025-07-01 03:18] LABS: POC Glucose,Bedside 97 gm/dL (70-110)
== END 2025-06-30 14:54 | disposition home or self-care (01) ==
PROVIDERS: PCP Nurse Practitioner Family; Visit Provider Internal Medicine Gastroenterology
PROC: 0DJ08ZZ Inspection of Upper Intestinal Tract, Via Natural or Artificial Opening Endoscopic (ICD-10-PCS; CPT 43239; principal; 2025-06-30 14:30)
DX: C16.1 Malignant neoplasm of fundus of stomach (principal); K21.9 Gastro-esophageal reflux disease without esophagitis; F17.210 Nicotine dependence, cigarettes, uncomplicated; E78.5 Hyperlipidemia, unspecified; E11.9 Type 2 diabetes mellitus without complications; Z79.84 Long term (current) use of oral hypoglycemic drugs
CPT/HCPCS: 43239; 82962; J2003; J2704; J7120

== ENCOUNTER 2025-07-19 00:31 | Emergency (ER) | payer BC, SELFPAY ==
--- OUTSIDE RECORDS SUMMARY | 2025-07-09 06:26 | XMS_ITS | Encounter Summary ---
Author Organization [employer] ([place], [place], [place], [place], [place]) Address [address] [place] [address] Care Team Providers Care Fire Crew Worker Name Role Phone Unavailable Primary Care Provider Unavailabl e Reason for Referral * CAT Scan (Routine) - New Request Specialty Diagnoses / Procedures Referred By Clarisa diana Referred To Contact Radiology Diagnoses Malignant neoplasm of cardia (HCC) Procedures PET/CT Skull Base-Mid Thigh (Whole Body) Jefferson Kraft MD [address] [place] [address] Phone: tel: fax: Referral ID Status Reason Start Date Expiration Date V isits Requested Visits Authorized [id number] New Request 07/07/2025 07/07/2026 1 1 Reason for Visit * CAT Scan (Routine) - New Request Specialty Diagnoses / Procedures Referred By Clarisa diana Referred To Contact Radiology Diagnoses Malignant neoplasm of cardia (HCC) Procedures PET/CT Skull Base-Mid Thigh (Whole Body) Jefferson Kraft MD [address] [place] [address] Phone: tel: fax: Referral ID Status Reason Start Date Expiration Date V isits Requested Visits Authorized [id number] New Request 07/07/2025 07/07/2026 1 1 Encounter Details Date Type Department Care Team (Latest Contact Info) Description 07/09/2025 7:26 AM EDT - 07/09/2025 11:59 PM EDT Hospital Encounter [facility] PET CT - [address] [place] [id number] Jefferson Kraft MD [address] [place] [address] Malignant neoplasm of cardia (HCC) Discharge Disposition: Home or Self Care Social History Tobacco Use Types Packs/Day Years Used Date Smoking Tobacco: Never Assessed Sex and Gender Information Value Date Recorded Sex Assigned at Not on file Legal Sex Male 2:30 PM CDT Gender Identity Not on file Sexual Orientation Not on file documented as of this encounter Plan of Treatment Not on file documented as of this encounter Procedures Procedure Name Priority Date/Time Associated Diagnosis Comments P.E.T./CT SKULL BASE TO MID-THIGH Routine 07/09/2025 9:40 AM EDT Malignant neoplasm of cardia (HCC) documented in this encounter Results * PET/CT Skull Base-Mid Thigh (Whole Body) (07/09/2025 9:40 AM EDT) Anatomical Region Laterality Modality Positron Emissio n Tomography (PET) 07/09/2025 3:27 PM EDT Impressions 07/09/2025 4:54 PM EDT 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 No evidence of distant metastatic disease. Images reviewed, interpreted, and dictated by Dr. Hammad Christopher. Transcribed by Lewis Trivedi PA-C. Narrative 07/09/2025 4:54 PM EDT PROCEDURE: PET/CT IMAGING, SKULL BASE TO MID THIGH INDICATION: Gastric cancer, initial staging. TECHNIQUE: 15.87 mCi of 18-FDG was injected intravenously with a fasting blood glucose of 105 mg/dl. PET/CT images were obtained from skull base to mid thigh. COMPARISON: No prior FINDINGS: There is no FDG avid cervical lymphadenopathy. A 14 mm right paratracheal lymph node is not FDG avid. There is evidence of granulomatous disease. There is bibasilar atelectasis. The liver, spleen, renal collecting systems, and bladder demonstrate expected FDG uptake. There is marked fatty attrition of the liver. There is no suprarenal hypermetabolism to suggest adrenal metastasis. There is wall thickening of the gastric cardia and GE junction. This is hypermetabolic with a maximum SUV of 12.2. There are numerous adjacent hypermetabolic lymph nodes just inferior to the gastric cardia and superior to the celiac axis. One lymph node measures 14 mm and 7.9 SUV. A larger, second lymph node measures up to 25 mm and 8.6 SUV. No hypermetabolic bone lesions are identified. Procedure Note Hammad Christopher MD - 07/09/2025 PROCEDURE: PET/CT IMAGING, SKULL BASE TO MID THIGH INDICATION: Gastric cancer, initial staging. TECHNIQUE: 15.87 mCi of 18-FDG was injected intravenously with a fasting blood glucose of 105 mg/dl. PET/CT images were obtained from skull base to mid thigh. COMPARISON: No prior FINDINGS: There is no FDG avid cervical lymphadenopathy. A 14 mm right paratracheal lymph node is not FDG avid. There is evidence of granulomatous disease. There is bibasilar atelectasis. The liver, spleen, renal collecting systems, and bladder demonstrate expected FDG uptake. There is marked fatty attrition of the liver. There is no suprarenal hypermetabolism to suggest adrenal metastasis. There is wall thickening of the gastric cardia and GE junction. This is hypermetabolic with a maximum SUV of 12.2. There are numerous adjacent hypermetabolic lymph nodes just inferior to the gastric cardia and superior to the celiac axis. One lymph node measures 14 mm and 7.9 SUV. A larger, second lymph node measures up to 25 mm and 8.6 SUV. No hypermetabolic bone lesions are identified. 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 No evidence of distant metastatic disease. Images reviewed, interpreted, and dictated by Dr. Hammad Christopher. Transcribed by Lewis Trivedi PA-C. Jefferson Kraft MD IMG CT ORDERABLES Final Result documented in this encounter Visit Diagnoses Diagnosis Malignant neoplasm of cardia (HCC) Malignant neoplasm of cardia documented in this encounter
--- NOTE | 2025-07-19 00:33 | HMH.EDGENADL ---
Discharge Plan Disposition Patient Disposition: Home, Self-Care Prescriptions Prescriptions: No Action sertraline 50 mg tablet 50 mg PO DAILY Patient Comments: TAKE 1 TABLET BY MOUTH EVERY DAY topiramate 50 mg tablet 50 mg PO DAILY ezetimibe 10 mg tablet 10 mg PO DAILY duloxetine 60 mg capsule,delayed release(DR/EC) 60 mg PO DAILY Patient Comments: TAKE 1 CAPSULE (60 MG) BY MOUTH 1 (ONE) TIME EACH DAY. DO NOT CRUSH OR CHEW. cholecalciferol (vitamin D3) 50 mcg (2,000 unit) capsule 50 mcg PO DAILY Patient Comments: TAKE 1 CAPSULE BY ORAL ROUTE EVERY DAY FOR VITAMIN D DEFICIENCY cyclobenzaprine 10 mg tablet 10 mg PO DAILY Patient Comments: TAKE 1 TABLET (10 MG) BY MOUTH 3 (THREE) TIMES A DAY IF NEEDED FOR MUSCLE SPASMS. metformin 500 mg tablet extended release 24 hr 500 mg PO DAILY Patient Comments: TAKE 1 TABLET BY ORAL ROUTE 2 TIMES EVERY DAY WITH THE EVENING MEAL celecoxib 200 mg capsule 200 mg PO DAILY Patient Comments: TAKE 1 CAPSULE BY MOUTH TWICE A DAY alum-mag hydroxide-simeth [Mylanta Maximum Strength] 400-400-40 mg/5 mL suspension 5 ml PO QID PRN (Reason: Stomach Upset) sucralfate [Carafate] 100 mg/mL suspension 5 ml PO QID Qty: 500 2RF Rx Instructions: swish in mouth and swallow; use after food/drink propranolol 40 mg tablet 40 mg PO BID Patient Comments: TAKE 1 TABLET BY MOUTH TWICE A DAY ferrous sulfate 325 mg (65 mg iron) tablet 325 mg PO DAILY Patient Comments: TAKE 1 TABLET BY MOUTH EVERY DAY fluticasone propionate 50 mcg/actuation spray,suspension intranasal Patient Comments: SPRAY 1 - 2 SPRAY BY INTRANASAL ROUTE EVERY DAY IN EACH NOSTRIL NEEDED rosuvastatin 20 mg tablet 20 mg PO DAILY Patient Comments: TAKE 1 TABLET BY MOUTH EVERY DAY hydrocodone-acetaminophen 5-325 mg tablet 1 tab PO Q8H PRN (Reason: pain) Qty: 60 0RF Rx Instructions: please take 1 tablet by mouth every 8 hours as needed lower sternal/mid upper abdominal pain omeprazole 40 MG capsule,delayed release(DR/EC) 40 mg PO DAILY lidocaine HCl [Lidocaine Viscous] 2 % solution 15 ml PO AC Qty: 600 12RF Rx Instructions: Please take 1 tablespoon (15 mL by mouth to swallow) 5 to 10 minutes prior to eating Referrals Follow up/Referrals: Nakia Ramirez APRN [Primary Care Provider, Medical] - See instructions Activity Restrictions/Add. Instructions Additional Instructions/Restrictions: Please follow-up with your primary care provider and your cancer team. Please return to the emergency department if you develop any new or worsening symptoms or become concerned for your health. 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 He reports that he always gets pain when he eats and he did not normal things to try to help including omeprazole oxycodone and numbing spray, but it has not helped. He has been having worsening pain for the last few hours. The pain is also much different than normal. It is significantly lower and is worse than typical. He reports he is still having bowel movements and passing gas. He denies vomiting. Denies fever at home. He is not yet on chemo or radiation and has not had any surgery to this point. Related Data Home Medications ?Medication ?Instructions ?Recorded ?Confirmed omeprazole 40 mg capsule,delayed 40 mg PO DAILY acid reflux 02/05/21 07/04/25 release sertraline 50 mg tablet 50 mg PO DAILY 11/18/21 07/04/25 cholecalciferol (vitamin D3) 50 50 mcg PO DAILY 10/03/24 07/04/25 mcg (2,000 unit) capsule cyclobenzaprine 10 mg tablet 10 mg PO DAILY 10/03/24 07/04/25 duloxetine 60 mg capsule,delayed 60 mg PO DAILY 10/03/24 07/04/25 release ezetimibe 10 mg tablet 10 mg PO DAILY 10/03/24 07/04/25 metformin 500 mg tablet,extended 500 mg PO DAILY 10/03/24 07/04/25 release 24 hr topiramate 50 mg tablet 50 mg PO DAILY 10/03/24 07/04/25 aluminum-mag hydroxide-simethicone 5 ml PO QID PRN Stomach Upset 06/18/25 07/04/25 400 mg-400 mg-40 mg/5 mL oral susp (Mylanta Maximum Strength) celecoxib 200 mg capsule 200 mg PO DAILY 06/18/25 07/04/25 ferrous sulfate 325 mg (65 mg 325 mg PO DAILY 07/04/25 07/04/25 iron) tablet fluticasone propionate 50 intranasal 07/04/25 07/04/25 mcg/actuation nasal spray,suspension propranolol 40 mg tablet 40 mg PO BID 07/04/25 07/04/25 rosuvastatin 20 mg tablet 20 mg PO DAILY 07/04/25 07/04/25 Previous Rx's ?Medication ?Instructions ?Recorded sucralfate 100 mg/mL oral 5 ml PO QID #500 mL 06/18/25 suspension (Carafate) lidocaine HCl 2 % mucosal solution 15 ml PO AC #600 mL 06/30/25 (Lidocaine Viscous) hydrocodone 5 mg-acetaminophen 325 1 tab PO Q8H PRN pain #60 tabs 07/02/25 mg tablet Allergies Allergy/AdvReac Type Severity Reaction Status Date / Time No Known Allergies Allergy Verified 07/04/25 11:23 [facility] Disclaimer: The information contained in this section may have been updated after the patient was seen, as this information can be updated by other users. Medical History GERD (gastroesophageal reflux disease) Chronic back pain HLD (hyperlipidemia) Diabetes Surgical History History of prior ablation treatment History of foot surgery Family History Other Family history of dementia Family history of diabetes mellitus Family history of kidney disease Social History Smoking Status: Current every day smoker tobacco type: cigarettes packs per day: 1 second hand exposure: Yes alcohol intake: never substance use type: denies use current occupational status: employed and disabled Travel in the last 8 weeks?: [place] the [place] household members: significant other and children housing: house current occupation: 3M current occupational exposures/hazards: No caffeine: Yes Have you lived/traveled outside US in past 30 days?: No Contact w/someone who lives/traveled outside US past 30 days?: No Exposure to someone with infectious disease in past 14 days?: No Do you have a fever (greater than 100.4 F or 38 C)?: No Have you tested positive for COVID-19?: No Exposed to someone with COVID-19 in past 14 days?: No Do you have a sore throat?: No Do you have a cough?: No Do you have any weakness?: No Do you have any diarrhea?: No Are you experiencing any unusual bleeding?: No Do you have any muscle aches/pain?: No Do you have any abdominal pain?: Yes Are you experiencing loss of taste or smell?: No Other Medical History Have you received the Flu Vaccine for this season: Yes Have you received the Pneumonia Vaccine: No ROS Obtained: Yes All systems reviewed & no additional complaints except as documented Physical Exam General General appearance: alert and in no apparent distress Head Head exam: atraumatic and normocephalic Eye Eye exam: Present normal appearance, PERRL and EOMI ENT ENT exam: Present normal oropharynx and normal external ear exam Neck Neck exam: Present normal inspection and full ROM Chest Chest inspection: Present normal inspection and symmetric chest wall rise; Absent tenderness Respiratory Respiratory exam: Present normal lung sounds bilaterally; Absent respiratory distress Cardiovascular Cardiovascular exam: Present regular rate and normal rhythm Abdominal Exam Abdominal exam: Present soft, distention and tenderness (Mild generalized tenderness, no guarding); Absent guarding Extremities Exam Extremities exam: Present normal inspection; Absent edema or joint swelling Back Exam Back exam: Present normal inspection; Absent tenderness Neurological Exam Neurological exam: Present alert and oriented X3; Absent motor sensory deficit Psychiatric Psychiatric exam: Present normal affect and normal mood Skin Skin exam: Present warm, dry and normal color Lymphatic Lymphatic Findings: no adenopathy Medical Decision Making Medical Records Medical records reviewed: Yes I reviewed the patient's medical records. Screening: Per USPSTF and CDC recommendations, given the prevalence of disease in our region, it is our hospital?s policy to screen for HIV and viral Hepatitis for all patients aged 18 and over and those with ongoing risk factors. Lee Inquiry Pt receiving controlled substance: No Lee was queried for this patient: No Vital Signs: 07/19/25 00:37 07/19/25 00:43 07/19/25 02:47 Temperature 98.2 F 98.8 F 98.8 F Temperature Source Oral Oral Pulse Rate 64 71 Pulse Rate [Left] 71 Respiratory Rate 20 18 18 Blood Pressure 139/45 L 127/78 Blood Pressure [Right Arm] 131/95 H Blood Pressure Mean [Right Arm] 107 02 Sat by Pulse Oximetry 99 98 Oxygen Delivery Method Room Air Room Air Room Air Lab Data Lab results reviewed: Yes I reviewed the patient's lab results. Lab Results 07/19/25 00:37: WBC 12.8 H, RBC 4.70, Hgb 14.6, Hct 42.5, MCV 90.4, MCH 31.1, MCHC 34.4, RDW 12.9, Plt Count 282, MPV 11.4 H, Neut % (Auto) 64.5, Lymph % (Auto) 24.9, [place] % (Auto) 7.3, Eos % (Auto) 2.4, Baso % (Auto) 0.7, Neut # (Auto) 8.2 H, Lymph # (Auto) 3.2, [place] # (Auto) 0.9, Eos # (Auto) 0.3, Baso # (Auto) 0.1, Sodium 142, Potassium 3.9, Chloride 100, Carbon Dioxide 33 H, Anion Gap 12.9, BUN 17, Creatinine 1.10, Estimated Creat Clear 119, Estimated GFR 72, Est GFR ( Amer) 88, Glucose 123 H, Calcium 9.7, Magnesium 2.3, Total Bilirubin 0.7, AST 81 H, ALT 54, Alkaline Phosphatase 83, Total Protein 7.8, Albumin 5.2 H, Globulin 2.6, Albumin/Globulin Ratio 2.0 H, Lipase 77, HCV Ab STAR w/Rflx PCR Qn Negative, HIV Ag/Ab Combo Qual Negative 07/19/25 00:37 07/19/25 00:37 Orders (Tests/Meds): ED MEDICATIONS Discontinued Medications Generic Name Dose Route Start Last Admin Trade Name Freq PRN Reason Stop Dose Admin Acetaminophen 1,000 mg 07/19/25 00:41 07/19/25 00:47 Acetaminophen 500mg Tab PO 07/19/25 00:42 1,000 mg ONCE ONE Administration Belladonna Alkaloids 60 ml 07/19/25 00:41 07/19/25 00:47 Belladonna Alkaloids 60 Ml Ml PO 07/19/25 00:42 60 ml ONCE ONE Administration Sodium Chloride 1,000 mls @ 999 mls/hr 07/19/25 00:45 07/19/25 00:46 Sod Chlor 0.9% 1000ml Bag IV 07/19/25 01:45 999 mls/hr .Q1H1M NASREEN Administration Iopamidol 75 ml 07/19/25 01:16 07/19/25 01:18 Iopamidol-370 (76%);100ml Bottle IV 07/19/25 01:17 75 ml ONCE ONE Administration Morphine Sulfate 4 mg 07/19/25 00:41 07/19/25 00:47 Morphine 4mg/Ml Syringe IV 07/19/25 00:42 4 mg ONCE ONE Administration Ondansetron HCl 4 mg 07/19/25 00:41 07/19/25 00:46 Ondansetron 4mg/2ml Vial IV 07/19/25 00:42 4 mg ONCE ONE Administration Promethazine HCl 25 mg 07/19/25 01:25 07/19/25 01:29 Promethazine Hcl 25mg/Ml 1ml Vial IV 07/19/25 01:26 25 mg ONCE ONE Administration Sodium Chloride 10 ml 07/19/25 01:16 07/19/25 01:18 Sodium Chloride 0.9% 10ml Syr (Rad Only) IV 08/18/25 01:15 10 ml NEEDED PRN Administration Maintain IV Site Sodium Chloride 25 ml 07/19/25 01:25 07/19/25 01:30 Sodium Chloride 0.9% 25ml Bag IV 07/19/25 01:26 25 ml ONCE ONE Administration ORDERS Category Date Time Status CT abdomen pelvis w con Stat Cat Scan 07/19/25 00:41 Completed CBC w/Auto Diff [Complete Blood Count Auto Diff] Stat Lab 07/19/25 00:37 Completed CMP [Comprehensive Metabolic Panel] Stat Lab 07/19/25 00:37 Completed HIV Combo Stat Lab 07/19/25 00:37 Completed Hepatitis C Ab Qual. 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 History was obtained via interactive discussion with patient, chart review. On arrival, patient is [afebrile, hemodynamically stable, satting appropriately, alert, oriented x4, GCS 15], moving all extremities spontaneously. Full physical exam performed and significant for abdomen soft, mildly distended, generally tender without guarding Differential includes but is not limited to obstruction, ulcer, perforation, enteritis pancreatitis. Patient was given Tylenol GI cocktail morphine Zofran for symptomatic management and correction of underlying abnormalities. Workup initiated including CBC CMP lipase CT abdomen pelvis with IV contrast. On re-evaluation, patient reports significant symptomatic improvement after a small episode of vomiting. Laboratory workup independently interpreted by me and significant for mild leukocytosis, normal lipase, normal renal function.. Imaging independently interpreted by me and significant for findings consistent with patient's known GE junction adenocarcinoma. To me, patient stomach is moderately distended and the proximal small bowel is inflamed in appearance. See radiology read for full review of final results. Given patient history, exam and workup, patient's presentation most likely represents mild small bowel inflammation and distended stomach that is likely causing his symptoms. I extensively discussed the patient's workup and CT imaging with him. He has follow-up with his team in a few days. He was discharged in stable condition feeling much better. Procedures Risk/Benefits of Procedure(s) Were Explained: Yes Critical Care Critical Care Time Critical Care Time: No
--- OUTSIDE RECORDS SUMMARY | 2025-07-19 00:36 | XMS_ITS | Clinical Summary ---
Author Organization [facility] Address [address] [place] [address] Care Team Providers Care Financial Service Professional Name Role Phone Nakia Ramirez APRN Primary Care Provider [phone] Allergies No known active allergies Medications loratadine [...] time each day. 3 Active [facility] Nasal [place] 0.05 % nasal spray SPRAY 2 SPRAY BY INTRANASAL ROUTE 2 TIMES EVERY DAY IN EACH NOSTRIL IN THE MORNING AND EVENING 3 Active ALPRAZolam (Xanax) 1 MG tablet Take 1 tab 1 hour prior to procedure, if no change in anxiety in 30 minutes take 2nd tab. Bring 3rd tab to office with funeral car driver. 3 tablet 4 Active ferrous sulfate [...] Encounters Date Type Department Care Team Description 07/16/2025 Orders Only [facility] [address] [place] [phone] Jefferson Kraft MD Adenocarcinoma of gastroesophageal junction (Primary Dx) from Last 3 Months Immunizations Immunization Administration Dates Next Due Influenza, injectable, quadrivalent, preservativ e free 06/20/2022 [employer] COVID-19 Vaccine (Purple Cap) 12 + 12/25/2020,11/18/2020 Family History Medical History Relation Name Comments Diabetes type II Father Diabetes type II Mother Heart attack Mother Stroke Mother Relation Name Status Comments Father Mother Social History Tobacco Use Types Packs/Day Years Used Date Smoking Tobacco: Every Day Cigarettes 1 23.9 Started: 09/11/2001 Smokeless Tobacco: Never Tobacco Cessation:Ready [...] Care Team (Late st Contact Info) Description 07/22/2025 9:50 AM EST Office Visit [facility] [address] [place] [address] Jefferson Hernandez MD [address] [phone] 07/22/2025 9:55 AM EST Clinical Support [facility] [address] [place] [address] 09/30/2025 11:20 AM EST Office Visit [facility] [address] [place] [address] Jefferson Mccarthy, [address] [place] [address] Health Maintenance Due Date Last Done Comments [...] Years) (1 of 2 - PCV) 1998 [facility]-Zoster Vaccines (1 of 2) 1998 HPV Vaccines (1 - Risk 3-dose SCDM series) 2006 CT Colonography 2024 Colonoscopy 2024 FIT-DNA 2024 FIT 2024 FOBT 2024 Sigmoidoscopy 2024 [facility]-Colorectal Cancer Screening 2024 [id number] Vaccine ( season) 2025 06/20/2022, 12/25/2020, 11/18/2020 [facility]-Depression Screening 03/27/2026 03/27/2025 [facility]-Obesity Intervention Completed 025, 12/24/2024, 08/20/2024, Additional history exists [facility]-Influenza Vaccine Completed 07/01/2025 , 06/05/2024, 07/14/2023, Additional history exists [facility]-HIB Vaccines Aged Out [...] complete this topic Insurance ANTH Care Teams Financial Service Professional Relationship Specialty Start Date End Date Nakia Ramirez APRN [address] [place] [address] PCP - General 07/13/22
--- OUTSIDE RECORDS SUMMARY | 2025-07-19 00:36 | XMS_ITS | Encounter Summary ---
Author Organization [facility] Address [address] [place] [address] Care Team Providers Care Client Technical Specialist Name Role Phone Nakia Ramirez APRN Primary Care Provider [phone] Reason for Referral * Consultation (Routine) - Authorized Specialty Diagnoses / Procedures Referred By Clarisa diana Referred To Contact Surgical Oncology / Hematology and Oncology Diagnoses Adenocarcinoma of gastroesophageal junction Jefferson Kraft MD [address] [place] [address] [place] [address] Phone: tel: fax: Jefferson Hernandez MD [address] [address] Phone: tel:[phone] fax:[phone] Referral ID Status Reason Start Date Expiration Date Visits Requested Visits Authorized [id number] Authorized Specialty Services Required 07/16/2025 01/15/2027 1 1 Scheduling Instructions Affiliate referral through Encounter Details Date Type Department Care Team (Latest Contact Info) Description 07/16/2025 Orders Only [facility] [address] [place] [phone] Jefferson Kraft MD [address] [place] [address] [place] [address] Adenocarcinoma of gastroesophageal junction (Primary Dx) Social History Tobacco Use Types Packs/Day Years Used Date Smoking Tobacco: Every Day Cigarettes 1 23.9 Started: 09/11/2001 Smokeless Tobacco: Never Alcohol Use [...] Description 07/22/2025 9:50 AM EST Office Visit [facility] [address] [place] [address] Jefferson Hernandez MD [address] [address] 07/22/2025 9:55 AM EST Clinical Support [facility] [address] [place] [address] 09/30/2025 11:20 AM EST Office Visit [facility] [address] [place] [address] Jefferson Mccarthy, [address] [place] [address] Scheduled Referrals Name Type Priority Associated Diagnoses Orde r Schedule Ambulatory referral to Surgical Oncology ([facility]) Outpatient Referral Routine Adenocarcinoma of gastroesophageal junction Expected: 07/23/2025, Expires: 01/17/2027 documented as of this encounter Visit Diagnoses Diagnosis Adenocarcinoma of gastroesophageal junction- Primary documented in this encounter Additional Health Concerns Assessment Noted Time A fall risk assessment has been complete d for the patient 03/27/2025 10:10 AM EDT A Body Mass Index follow-up plan has been documented for the patient 03/27/2025 11:43 AM EDT documented as of this encounter Care Teams Client Technical Specialist Relationship Specialty Start Date End Date Nakia Ramirez APRN [address] [place] [address] PCP - General 07/13/22 documented as of this encounter
--- OUTSIDE RECORDS SUMMARY | 2025-07-19 00:36 | XMS_ITS | Clinical Summary ---
Author Organization [facility] ([place], [place], [place], [place], [place]) Address [address] [place] [address] Care Team Providers Care Manager Resort Name Role Phone Unavailable Primary Care Provider Unavailabl e Encounters Date Type Department Care Team Description 07/09/2025 7:26 AM EDT - 07/09/2025 11:59 PM EDT Hospital Encounter [facility] PET CT - [address] [place] [phone] Jefferson Kraft MD Malignant neoplasm of cardia (HCC) Discharge Disposition: Home or Self Care from Last 3 Months Social History Tobacco Use Types Packs/Day Years Used Date Smoking Tobacco: Never Assessed Sex and Gender Information Value Date Recorded Sex Assigned at Not on file Legal Sex Male 2:30 PM CDT Gender Identity Not on file Sexual Orientation Not on file Plan of Treatment Health Maintenance Due Date Last Done Comments CT Colonography 1979 Colonoscopy 1979 Colorectal Cancer Screening 1979 FOBT/FIT 1979 Fit-DNA (Cologuard) 1979 Sigmoidoscopy 1979 Depression Screening (12+) 1991 Tobacco Cessation Counseling and Screening (12+) 1991 HIV Screening 1994 Hepatitis C Screening 1997 DTAP/TDAP/TD VACCINES (1 - Tdap) 1998 Lipid Panel 2014 COVID-19 VACCINE (2024-2 6 season) 2025 06/20/2022, 12/25/2020, 11/18/2020 Influenza Vaccine (#1) 2025 Pneumococcal Vaccine: 0-49 Years Aged Out No longer eligible b ased on patient's age to complete this topic Procedures Procedure Name Priority Date/Time Associated Diagnosis Comments P.E.T./CT SKULL BASE TO MID-THIGH Routine 07/09/2025 9:40 AM EDT Malignant neoplasm of cardia (HCC) from Last 3 Months Results * PET/CT Skull Base-Mid Thigh (Whole [...] Kraft MD IMG CT ORDERABLES Final Result from Last 3 Months
--- OUTSIDE RECORDS SUMMARY | 2025-07-19 00:36 | XMS_ITS | Referral Summary ---
Author Organization [facility] ([place], [place], [place], [place], [place]) Address [address] [place] [address] Care Team Providers Care Artifacts Conservator Name Role Phone Unavailable Primary Care Provider Unavailabl e Encounters Date Type Department Care Team Description 07/09/2025 7:26 AM EDT - 07/09/2025 11:59 PM EDT Hospital Encounter [facility] PET CT - [address] [place] [address] Jefferson Kraft MD Malignant neoplasm of cardia (HCC) Discharge Disposition: Home or Self Care from Last 3 Months Social History Tobacco Use Types Packs/Day Years Used Date Smoking Tobacco: Never Assessed Sex and Gender Information Value Date Recorded Sex Assigned at Not on file Legal Sex Male 2:30 PM CDT Gender Identity Not on file Sexual Orientation Not on file Plan of Treatment Not on file Procedures Procedure Name Priority Date/Time Associated Diagnosis [...] Hammad Christopher. Transcribed by Lewis Trivedi PA-C. us Jefferson Kraft MD IMG CT ORDERABLES Final Result from Last 3 Months
--- OUTSIDE RECORDS SUMMARY | 2025-07-19 00:36 | XMS_ITS | Encounter Summary ---
Author Organization [facility] Address [address] [place] [address] Care Team Providers Care Advertising Campaign Manager Name Role Phone Nakia Ramirez APRN Primary Care Provider + Reason for Referral * Consultation (Routine) - Closed Specialty Diagnoses / Procedures Referred By Contkaren t Referred To Contact Orthopaedic Surgery Diagnoses Midline thoracic back pain, unspecified chronicity Lumbar back pain Nakia Ramirez APRN [address] [place] [address] Phone: tel: fax: [facility] [address], [address] [place] [address] Phone: tel: fax: Referral ID Status Reason Start Date Expiration Date Visits Re quested Visits Authorized [id number] Closed 07/05/2022 01/04/2024 1 1 Encounter Details Date Type Department Care Team (Late st Contact Info) Description 07/05/2022 Community [facility] [address] [place] [address] Nakia Ramirez APRN [address] [place] [address] (Fax) Midline thoracic back pain, unspecified chronicity [...] Description 07/22/2025 9:50 AM EST Office Visit [facility] Multidisciplinary Oncology Clinic [address] [place] [address] Jefferson Hernandez MD [address] [address] 07/22/2025 9:55 AM EST Clinical Support [facility] Multidisciplinary Oncology Clinic [address] [place] [phone] 09/30/2025 11:20 AM EST Office Visit [facility] at [facility] [address] [place] [address] Jefferson Mccarthy, [address] [place] [address] Scheduled Referrals Name Type Priority Associated Diagnoses Orde r Schedule Ambulatory referral to Orthopaedics Spine Outpatient Referral Routine Midline thoracic back pain, unspecified chronicity Lumbar back pain Expected: 07/05/2022 (Approximate), Expires: 01/04/2024 documented as of this encounter Visit Diagnoses Diagnosis Midline thoracic back pain, unspecified chronicity- Primary Lumbar back pain Lumbago documented in this encounter Care Teams Advertising Campaign Manager Relationship Specialty Start Date End Date Nakia Ramirez APRN [address] [place] [address] PCP - General 07/13/22 documented as of this encounter
--- OUTSIDE RECORDS SUMMARY | 2025-07-19 00:36 | XMS_ITS | Clinical Summary ---
Author Organization [facility] Address [address] [place] [address] Care Team Providers Care Taxation Agent Name Role Phone Nakia Ramirez APRN Primary Care Provider [phone] Allergies No known active allergies Medications cyclobenzaprine [...] Phone Billing Address Personal/Family Self 1980 [address] [facility] [address] [place] [address] [facility] PPO Care Teams Taxation Agent Relationship Specialty Start Date End Date Nakia Ramirez APRN [address] [place] [phone] PCP - General Family Medicine 10/26/23
[2025-07-19 00:37] VITALS: BP 131/95; PULSE 71; RESP 20; TEMP 36.8; O2SAT 99; BMI 29.5
--- NOTE | 2025-07-19 00:41 | CT_ITS ---
PROCEDURE INFORMATION: Exam: CT Abdomen And Pelvis With Contrast Exam date and time: 07/19/2025 1:16 AM Age: 44 years old Clinical indication: Abdominal tenderness; Abdominal pain; Additional info: Recent dx of ge cancer, new worse lower abd pain TECHNIQUE: Imaging protocol: Computed tomography of the abdomen and pelvis with contrast. Radiation optimization: All CT scans at this facility use at least one of these dose optimization techniques: automated exposure control; mA and/or kV adjustment per patient size (includes targeted exams where dose is matched to clinical indication); or iterative reconstruction. Contrast material: ISOVUE; Contrast volume: 75 ml; Contrast route: IV; COMPARISON: PT P.E.T./CT SKULL BASE TO MID-THIGH 07/09/2025 9:02 AM FINDINGS: Liver: Normal. No mass. Gallbladder and biliary ducts: Normal. No calcified stones. No ductal dilation. Pancreas: Normal. No ductal dilation. Spleen: Normal. No splenomegaly. Adrenal glands: Normal. No mass. Kidneys and ureters: Normal. No hydronephrosis. Stomach and bowel: Nodular thickening at the gastroesophageal junction. Appendix: No evidence of appendicitis. Intraperitoneal space: 4 x 4 x 2 cm infiltrative soft tissue mass within the gastrohepatic ligament. Vasculature: Unremarkable. No abdominal aortic aneurysm. Lymph nodes: Enlarged lymph nodes measuring up to 1.7 cm in short axis within the gastrohepatic ligament. Urinary bladder: Unremarkable as visualized. Reproductive: Unremarkable as visualized. Bones/joints: Unremarkable. No acute fracture. Soft tissues: Unremarkable. IMPRESSION: 1. No acute findings. 2. Nodular thickening at the gastroesophageal junction. Compatible with neoplasm. 3. Enlarged lymph nodes measuring up to 1.7 cm in short axis within the gastrohepatic ligament. Suspicious for ernie metastatic disease. 4. 4 x 4 x 2 cm infiltrative soft tissue mass within the gastrohepatic ligament. Suspicious for locally invasive neoplasm.
[2025-07-19 00:43] VITALS: BP 139/45; PULSE 64; RESP 18; TEMP 37.1; O2SAT 98
[2025-07-19] MEDS: ONDANSETRON 4MG/2ML VIAL 4 MG IV (00:46)
[2025-07-19] MEDS: 0.9 % SODIUM CHLORIDE 1000ML 1,000 ML 999 ML IV (00:46)
[2025-07-19] MEDS: MORPHINE 4MG/ML SYRINGE 4 MG IV (00:47)
[2025-07-19] MEDS: ACETAMINOPHEN 500MG TAB 1000 MG PO (00:47)
[2025-07-19] MEDS: BELLADONNA ALKALOIDS 60 ML ML PO (00:47)
[2025-07-19 00:49] LABS: Hematocrit 42.5 % (42.0-52.0); Hemoglobin 14.6 g/dL (14.1-18.0); Immature Granulocytes % 0.2 %; Mean Corpuscular HGB Conc 34.4 g/dL (31.8-35.4); Mean Corpuscular Hemoglobin 31.1 pg (27.0-31.2); Mean Corpuscular Volume 90.4 fl (80-94); Nucleated Red Blood Cells % 0 %; Platelet Count 282 K/mm3 (142-424); Red Blood Count 4.70 M/mm3 (4.60-6.20); Red Cell Distribution Width-SD 42.6 fL; White Blood Count 12.8 K/mm3 (4.8-10.8)
[2025-07-19 00:58] LABS: Albumin Level 5.2 g/dl (3.5-5.0); Chloride 100 mmol/L (98-107); Potassium 3.9 mmoL/L (3.5-5.1); Sodium 142 mmol/L (136-145)
[2025-07-19 01:00] LABS: Blood Urea Nitrogen 17 mg/dl (9-20); Creatinine Clearance Estimated 119 mL/min (50-200); Creatinine,Serum 1.10 mg/dl (0.66-1.25); Estimated Glomerular Filt Rate 72 ml/min (>60); GFR (African American) 88 ML/MIN (>60)
[2025-07-19 01:01] LABS: Alanine Aminotransferase 54 U/L (12-78); Albumin/Globulin Ratio 2.0 (1.1-1.8); Alkaline Phosphatase 83 U/L (38-126); Anion Gap 12.9 mEq/L (5-15); Aspartate Amino Transferase 81 U/L (17-59); Bilirubin,Total 0.7 mg/dl (0.2-1.3); Calcium 9.7 mg/dl (8.4-10.2); Carbon Dioxide 33 mmol/L (22.0-30.0); Globulin 2.6 g/dL (1.3-3.2); Glucose 123 mg/dl (74-100); Lipase 77 U/L (23-300); Magnesium 2.3 mg/dl (1.6-2.3); Total Protein,Serum 7.8 g/dl (6.3-8.2)
[2025-07-19] MEDS: SODIUM CHLORIDE 0.9% 10ML SYR (RAD ONLY) 10 ML IV (01:18)
[2025-07-19] MEDS: IOPAMIDOL-370 (76%);100ML BOTTLE 75 ML IV (01:18)
[2025-07-19] MEDS: PROMETHAZINE HCL 25MG/ML 1ML VIAL 25 MG IV (01:29)
[2025-07-19] MEDS: SODIUM CHLORIDE 0.9% 25ML BAG 25 ML IV (01:30)
[2025-07-19 02:23] LABS: Hepatitis C Ab Qual. W/ RFX NEGATIVE (Negative)
[2025-07-19 02:47] VITALS: BP 127/78; PULSE 71; RESP 18; TEMP 37.1; O2SAT 98
== END 2025-07-19 02:58 | disposition home or self-care (01) ==
PROVIDERS: Emergency Provider Emergency Medicine; PCP Nurse Practitioner Family
DX: R10.30 Lower abdominal pain, unspecified (principal); R14.0 Abdominal distension (gaseous); C16.9 Malignant neoplasm of stomach, unspecified; F17.210 Nicotine dependence, cigarettes, uncomplicated; E78.5 Hyperlipidemia, unspecified; E11.9 Type 2 diabetes mellitus without complications; Z79.84 Long term (current) use of oral hypoglycemic drugs
CPT/HCPCS: 74177; 80053; 83690; 83735; 85025; 86803; 87389; 96361; 96374; 96375; 99285; J2270; J2405; J2550; J7030; Q9967